=== PATIENT | female | born 1945 | race Caucasian/White ===

== ENCOUNTER 2016-09-26 17:04 | Emergency (ER) | payer MEDICARE ==
[~2016-09-26 17:04] MED LIST: BIAXIN500 MG PO; CALAN SR240 MG PO; CIPRO500 MG PO; CIPROFLOXACIN500 MG PO; DICYCLOMINE HCL10 MG PO; DUONEB 3 MG/3 ML3 M1 NEB; FERREX 150150 MG PO; LASIX20 MG PO; LESCOL XL80 MG PO; LIPITOR80 MG PO; LISINOPRIL10 MG PO; PLAVIX75 MG PO; POTASSIUM20 MEQ PO; PREDNISONE20 MG PO; PROTONIX TR40 MG PO; PULMICORT RESP0.5 MG NEB; SOLU-MEDROL40 MG PO; SYNTHROID,LEVO25 MCG PO; XANAX0.5 MG PO
[2016-09-26] MEDS ORDERED: LESCOL PO (17:17)
[2016-09-26 17:30] LABS: BASO # 0.1 10*3/uL (0.0-0.1); BASO % 0.8 % (0.0-1.0); EOS # 0.1 10*3/uL (0.0-0.4); EOS % 1.1 % (1.0-4.0); HEMATOCRIT 42.4 % (37.0-47.0); HEMOGLOBIN 14.4 g/dl (12.0-16.0); LYMPH % 25.5 % (27.0-41.0); MEAN CORPUSCULAR HGB 30.6 pg (27.0-31.0); MONO # 0.6 10*3/uL (0.1-1.0); NEUT # 5.1 10*3/uL (2.3-7.9); NEUT % 65.2 % (47.0-73.0); PLATELET COUNT AUTOMATED 236 10*3/uL (130-400); RED BLOOD COUNT 4.71 10*6/uL (4.10-5.10); RED CELL DISTRI WIDTH 13.1 % (0-14.5); WHITE BLOOD COUNT 7.8 10*3/uL (4.8-10.8)
[2016-09-26 17:45] LABS: ALBUMIN 3.5 gm/dl (3.1-4.5); ALKALINE PHOSPHATASE 68 U/L (45-117); BILIRUBIN, TOTAL 0.4 mg/dl (0.2-1.0); BUN 14 mg/dl (7-24); CARBON DIOXIDE 27 mmol/L (21-32); CHLORIDE 107 mmol/L (98-107); EST GLOM FILT AFRICAN AMERICAN > 60 ml/min; GLUCOSE 84 mg/dL (65-99); POTASSIUM 4.5 mmol/L (3.5-5.1); SGOT/AST 11 IU/L (3-35); SGPT/ALT 17 U/L (12-78); SODIUM 144 mmol/L (136-145); TOTAL PROTEIN 6.5 gm/dL (6.4-8.2)
[2016-09-26 17:47] LABS: TROPONIN I < 0.015 ng/ml (<0.045)
[2016-09-26 18:30] LABS: BILIRUBIN NEGATIVE (NEGATIVE); BLOOD NEGATIVE (NEGATIVE); CLARITY SL CLOUDY (CLEAR); COLOR YELLOW (YELLOW); GLUCOSE NEGATIVE (NEGATIVE); KETONE NEGATIVE (NEGATIVE); LEUKO ESTERASE 1+ (NEGATIVE); NITRITE NEGATIVE (NEGATIVE); PH 5.5 (5.0-9.0); PROTEIN NEGATIVE (NEGATIVE); SPECIFIC GRAVITY 1.015 (1.005-1.030); UROBILINOGEN 0.2 E.U./dl (0.2-1.0)
[2016-09-26 18:48] LABS: RBC 0-2 rbc/hpf (0-2)
[2016-09-26 18:49] LABS: BACTERIA 2+; URINE REFLEX COMMENT YES (NO)
== END 2016-09-26 19:11 | disposition home or self-care (01) ==
LOC: ED 17:04
PROVIDERS: Student in an Organized Health Care Education/Training Program
DX: N39.0 Urinary tract infection, site not specified (principal); M54.5 Low back pain; Z88.0 Allergy status to penicillin

== ENCOUNTER → 2016-10-06 | Outpatient (CLI) | payer MEDICARE ==
[~2016-10-06] MED LIST changes: +LESCOL PO
== END | disposition home or self-care (01) ==
LOC: LAB 11:38
DX: R19.7 Diarrhea, unspecified (principal)

== ENCOUNTER 2016-10-12 16:59 | Emergency (ER) | payer MEDICARE ==
[~2016-10-12] VITALS: Ht 172.7 cm; Wt 85.7 kg
[2016-10-12] MEDS ORDERED: OMEPRAZOLE D/R20 MG PO (17:13)
[2016-10-12] MEDS ORDERED: POTASSIUM CHLO20 ME4 PO (17:14)
[2016-10-12] MEDS ORDERED: ATORVASTATIN CA80 M1 PO (17:14)
[2016-10-12 20:16] LABS: BASO # 0.1 10*3/uL (0.0-0.1); EOS # 0.2 10*3/uL (0.0-0.4); EOS % 1.9 % (1.0-4.0); HEMATOCRIT 44.2 % (37.0-47.0); HEMOGLOBIN 14.7 g/dl (12.0-16.0); LYMPH # 2.9 10*3/uL (1.3-4.4); LYMPH % 34.2 % (27.0-41.0); MEAN CELL VOLUME 92.5 fl (81.0-99.0); MEAN CORPUSCULAR HGB 30.8 pg (27.0-31.0); MEAN CORPUSCULAR HGB CONC 33.3 g/dl (33.0-37.0); MEAN PLATELET VOLUME 11.4 fl (9.6-12.3); MONO # 0.6 10*3/uL (0.1-1.0); MONO % 7.5 % (3.0-9.0); NEUT # 4.6 10*3/uL (2.3-7.9); NEUT % 55.2 % (47.0-73.0); PLATELET COUNT AUTOMATED 233 10*3/uL (130-400); RED BLOOD COUNT 4.78 10*6/uL (4.10-5.10); RED CELL DISTRI WIDTH 13.4 % (0-14.5); WHITE BLOOD COUNT 8.4 10*3/uL (4.8-10.8)
[2016-10-12 20:21] LABS: BILIRUBIN NEGATIVE (NEGATIVE); BLOOD NEGATIVE (NEGATIVE); CLARITY CLEAR (CLEAR); COLOR YELLOW (YELLOW); GLUCOSE NEGATIVE (NEGATIVE); KETONE NEGATIVE (NEGATIVE); LEUKO ESTERASE 1+ (NEGATIVE); NITRITE NEGATIVE (NEGATIVE); PH 5.5 (5.0-9.0); PROTEIN NEGATIVE (NEGATIVE); SPECIFIC GRAVITY <= 1.005 (1.005-1.030); UROBILINOGEN 0.2 E.U./dl (0.2-1.0)
[2016-10-12 20:27] LABS: BACTERIA TRACE; URINE REFLEX COMMENT YES (NO)
[2016-10-12 20:32] LABS: ALBUMIN 3.6 gm/dl (3.1-4.5); ALKALINE PHOSPHATASE 70 U/L (45-117); BILIRUBIN, TOTAL 0.5 mg/dl (0.2-1.0); BUN 15 mg/dl (7-24); CARBON DIOXIDE 30 mmol/L (21-32); CHLORIDE 104 mmol/L (98-107); EST GLOM FILT AFRICAN AMERICAN > 60 ml/min; GLUCOSE 84 mg/dL (65-99); POTASSIUM 4.5 mmol/L (3.5-5.1); SGOT/AST 21 IU/L (3-35); SGPT/ALT 30 U/L (12-78); SODIUM 141 mmol/L (136-145); TOTAL PROTEIN 6.6 gm/dL (6.4-8.2)
== END 2016-10-12 21:15 | disposition home or self-care (01) ==
LOC: ED 16:59
PROVIDERS: Physician Assistant
DX: K59.00 Constipation, unspecified (principal); R10.30 Lower abdominal pain, unspecified; F17.200 Nicotine dependence, unspecified, uncomplicated; Z88.0 Allergy status to penicillin; Z79.899 Other long term (current) drug therapy; Z90.49 Acquired absence of other specified parts of digestive tract

== ENCOUNTER 2016-10-14 08:35 | Inpatient (IN) | payer MEDICARE ==
[~2016-10-14] VITALS: Ht 172.7 cm; Wt 88.2 kg
[~2016-10-14 08:35] MED LIST changes: +ATORVASTATIN CA80 M1 PO; +OMEPRAZOLE D/R20 MG PO; +POTASSIUM CHLO20 ME4 PO
[2016-10-14 11:30] VITALS: BP 126/60
[2016-10-14 16:00] VITALS: BP 105/55
[2016-10-14 17:56] VITALS: BP 153/53
[2016-10-14 18:16] LABS: BASO # 0.1 10*3/uL (0.0-0.1); BASO % 0.8 % (0.0-1.0); EOS # 0.1 10*3/uL (0.0-0.4); EOS % 1.1 % (1.0-4.0); HEMATOCRIT 45.4 % (37.0-47.0); LYMPH # 2.5 10*3/uL (1.3-4.4); LYMPH % 28.4 % (27.0-41.0); MEAN CELL VOLUME 91.9 fl (81.0-99.0); MEAN CORPUSCULAR HGB 30.4 pg (27.0-31.0); MEAN PLATELET VOLUME 10.9 fl (9.6-12.3); MONO # 0.8 10*3/uL (0.1-1.0); MONO % 8.5 % (3.0-9.0); NEUT # 5.4 10*3/uL (2.3-7.9); NEUT % 60.7 % (47.0-73.0); PLATELET COUNT AUTOMATED 243 10*3/uL (130-400); RED BLOOD COUNT 4.94 10*6/uL (4.10-5.10); RED CELL DISTRI WIDTH 13.4 % (0-14.5); WHITE BLOOD COUNT 8.8 10*3/uL (4.8-10.8)
[2016-10-14 18:26] LABS: INTERNATIONAL NORM RATIO 1.1 (2.0-3.5); PROTHROMBIN TIME 12.1 SECONDS (9.0-12.4)
[2016-10-14 18:53] LABS: ALBUMIN 3.8 gm/dl (3.1-4.5); ALKALINE PHOSPHATASE 70 U/L (45-117); BILIRUBIN, TOTAL 0.5 mg/dl (0.2-1.0); BUN 10 mg/dl (7-24); CARBON DIOXIDE 30 mmol/L (21-32); CHLORIDE 104 mmol/L (98-107); EST GLOM FILT AFRICAN AMERICAN > 60 ml/min; GLUCOSE 105 mg/dL (65-99); POTASSIUM 4.7 mmol/L (3.5-5.1); SGOT/AST 28 IU/L (3-35); SGPT/ALT 34 U/L (12-78); SODIUM 142 mmol/L (136-145); TOTAL PROTEIN 6.6 gm/dL (6.4-8.2)
[2016-10-14 18:54] LABS: TROPONIN I < 0.015 ng/ml (<0.045)
[2016-10-14 19:00] VITALS: BP 140/73
== END 2016-10-14 19:37 | DRG 66 ==
LOC: 4E 08:35 → ICCU 17:53
PROVIDERS: Hospitalist; Student in an Organized Health Care Education/Training Program
DX: I63.9 Cerebral infarction, unspecified (principal)

== ENCOUNTER 2016-11-12 07:14 | Inpatient (IN) | payer MEDICARE ==
[~2016-11-12] VITALS: Ht 173.9 cm; Wt 98.4 kg
[2016-11-12] VITALS (10 sets, daily range): BP systolic 94–142; BP diastolic 50–81
--- NOTE | ~2016-11-12 | PR ---
[place], [place] PROGRESS NOTE NAME: BIGG RAMIRES [facility] #: [id number] UNIT #: [id number] ROOM: 408 DOCTOR: ALISON NORMAN MD BIRTHDATE: [birth year] DOS: 11/18/2016 SUBJECTIVE: The patient was seen at her bedside today, 11/18/2016, for followup of her atrial fibrillation with rapid ventricular response and recent stroke. As I mentioned in my note from 11/17/2016, I did review her records from [facility]. A ROBERTO done at that facility showed a right atrial mass attached to the interatrial septum. It was not clear whether this represented a thrombus or myxoma. They were not able to demonstrate a shunt from the right atrium to the left atrium, so it appeared unlikely that the mass had anything to do with her recent stroke. Decision was made to anticoagulate her and see if the mass did not dissolve over time. If it remained intact, then plans would need to be made to remove it. The patient is currently awaiting transport to a rehabilitation facility to build her strength back up. PHYSICAL EXAMINATION: VITAL SIGNS: Today, her pulse is 60 and irregularly irregular, blood pressure is 106/70. She is afebrile and weighs 98.4 kilograms with a body mass index of 32.5. NECK: Supple. She has no jugular distention. Carotids are full. She has no bruits. She has no neck or supraclavicular masses. LUNGS: Respirations are unlabored. Her chest is clear. HEART: Has an irregularly irregular rhythm without murmurs or gallops. ABDOMEN: Benign. EXTREMITIES: Showed no edema. PLAN: She does seem to be stable from a cardiac standpoint. Her heart rate appears to be controlled on her current medications. She will continue amiodarone, metoprolol and digoxin for rate control. Her digoxin level this morning was 0.65. She will continue warfarin anticoagulation and her INR this morning was 1.8. This will be monitored and managed by Dr. David Curiel. I did give the patient my business card and told her that one way or another, the mass in her heart would need to be followed. She can either seek followup at the [facility] with or seek followup with us. As noted, she will require another ROBERTO at some point in the next few months to determine if the mass is shrinking or growing. I thank Dr. Curiel for asking our advice regarding her care. [place], [place] PROGRESS NOTE NAME: BIGG RAMIRES UNIT #: [id number] ROOM: [facility] DOCTOR: ALISON NORMAN MD BIRTHDATE: [birth year] ALISON NORMAN MD CM:PNTRANS [phone] ALISON NORMAN MD 11/18/162145 interface
--- NOTE | ~2016-11-12 | PR ---
[place], [place] PROGRESS NOTE NAME: BIGG RAMIRES UNIT #: [id number] ROOM: [facility] DOCTOR: TARA OJEDA MD BIRTHDATE: [birth year] DOS: 11/14/2016 REASON FOR VISIT: Congestive heart failure and atrial fibrillation. SUBJECTIVE: The patient is feeling better, sitting in the chair next to the bed. Family is at bedside. Denies any chest pain, palpitations. No dizziness. No orthopnea. REVIEW OF SYSTEMS: Review of the 8 systems negative except as mentioned above. RHYTHM STRIPS: The patient is in atrial fibrillation with rates in the 100s. PHYSICAL EXAMINATION: VITAL SIGNS: Blood pressure 115/62, pulse 96, respiratory rate 20. GENERAL: Alert, comfortable, in no acute distress. HEENT: Pupils are round and equal. No jaundice. Tongue was moist and pharynx was clear. NECK: Supple, no distended neck veins, no carotid bruit. CHEST: Symmetrical, nontender. LUNGS: Few scattered rhonchi, good air entry bilaterally. HEART: Irregularly irregular. Grade I/ systolic murmur. EXTREMITIES: Showed 1+ edema. Distal pulses are palpable. SKIN: Warm and dry. No cyanosis, no clubbing. RECTAL: Deferred. GENITOURINARY: Deferred. MEDICATIONS AND ALLERGIES: Reviewed. IMPRESSION: 1. Acute systolic heart failure, improving. 2. Atrial fibrillation with rapid ventricular rate, currently rates stable, we will wean out for IV Cardizem and discontinue. Switch her to p.o. amiodarone 400 mg twice a day for 1 week, then decrease to 200 mg twice a day. 3. Continue heart rate and blood pressure. 4. She can be transferred to telemetry floor and hopefully home in 24-48 hours. 5. Continue her Coumadin and keep INR 2-3. 6. Left ventricular dysfunction, EF 40%. 7. Coronary artery disease status post PTCA. 8. Pericardial effusion with no tamponade physiology. [place], [place] PROGRESS NOTE NAME: BIGG RAMIRES UNIT #: [id number] ROOM: [facility] DOCTOR: TARA OJEDA MD BIRTHDATE: [birth year] TARA OJEDA MD CM:PNTRANS [phone] TARA OJEDA MD 11/14/16 1544 interface
--- NOTE | ~2016-11-12 | PR ---
[place], [place] PROGRESS NOTE NAME: BIGG RAMIRES [facility] #: [id number] UNIT #: [id number] ROOM: [facility] DOCTOR: FANTA SHAW MD BIRTHDATE: [birth year] DOS: 11/15/2016 SUBJECTIVE: Patient is tachycardia again after her IV amiodarone and Cardizem were stopped and she was converted to oral. The patient is already on digoxin. Case discussed with cardiology today. OBJECTIVE: VITAL SIGNS: Blood pressure 117/52, heart rate 122 beats per minute, breathing 18 times per minute, temperature 98.2 degrees Fahrenheit. GENERAL APPEARANCE: The patient is alert and oriented x 3, in no visible distress. Generalized weakness. HEENT AND NECK: Exam within normal limits. CARDIOVASCULAR SYSTEM: Heart rate was irregularly irregular in rate and rhythm and tachycardic. LUNGS: Clear to auscultation. ABDOMEN: Soft, nontender. No obvious organomegaly. Bowel sounds are present. EXTREMITIES: Without significant cyanosis or edema. IMPRESSION: 1. Chronic atrial fibrillation with rapid ventricular response. The patient is still remaining tachycardic despite being treated with amiodarone, diltiazem, metoprolol and was given digoxin. Case discussed with cardiology today. We will give her more digoxin and we will continue to monitor her closely in ICU. 2. Chronic atrial fibrillation. The patient adequately anticoagulated with Coumadin and INR was 2 today. 3. The patient has a right adnexal mass with previous history of malignancy to be worked up by Dr. Ramey. the oncologist. Patient's CA-125 levels are elevated to 66.4. 4. Benign essential hypertension. Blood pressure is being monitored and controlled. 5. Gastroesophageal reflux disease and esophagitis, asymptomatic with Protonix, which is being continued. FANTA SHAW MD CM:PNYOJANA 13 [phone] FANTA SHAW MD 11/15/161847 interface
--- NOTE | ~2016-11-12 | PR ---
[place], [place] PROGRESS NOTE NAME: BIGG RAMIRES [facility] #: [id number] UNIT #: [id number] ROOM: 408 DOCTOR: FANTA SHAW MD BIRTHDATE: [birth year] DOS: 11/17/2016 SUBJECTIVE:. The patient is feeling much better, but still unable to walk by herself and she is not independent enough. OBJECTIVE: VITAL SIGNS: Blood pressure 136/56, heart rate 100 beats per minute, breathing 20 times per minute, temperature 98 degrees Fahrenheit. GENERAL APPEARANCE: The patient is alert and oriented x 3, in no visible distress. Generalized weakness. HEENT AND NECK: Exam within normal limits. CARDIOVASCULAR SYSTEM: Heart rate is irregularly irregular. LUNGS: Clear to auscultation. ABDOMEN: Soft, nontender. No obvious organomegaly. Bowel sounds are present. EXTREMITIES: Without significant cyanosis or edema. IMPRESSION: 1. The patient with chronic atrial fibrillation with rapid ventricular response, heart rate improved with treatment now with digoxin, amiodarone and diltiazem. The patient is also on metoprolol. The patient is anticoagulated with Coumadin. INR is being monitored. 2. Benign essential hypertension with controlled blood pressures. 3. Generalized anxiety disorder, treated and controlled with p.r.n. Xanax. 4. Gastroesophageal reflux disease and esophagitis, asymptomatic with Protonix. 5. The patient has a right adnexal mass to be followed by Dr. Kruse as an outpatient. He was consulted. 6. Significant disability. The patient is not safe to go home and she is agreeing to go to senior care facility for rehabilitation. FANTA SHAW MD CM:PNTRANS [id number] FANTA SHAW MD 11/17/16 1244 interface
--- NOTE | ~2016-11-12 | PR ---
[place], [place] PROGRESS NOTE NAME: BIGG RAMIRES [facility] #: [id number] UNIT #: [id number] ROOM: 408 DOCTOR: ALISON NORMAN MD BIRTHDATE: [birth year] DOS: SUBJECTIVE: The patient was seen at her bedside today for followup of her atrial fibrillation and recent stroke. She was recently documented as having paroxysmal atrial fibrillation. In addition, she was being evaluated as an outpatient in October 2016 for abdominal pain and possible GI bleeding. While she was being prepped for colonoscopy, she developed stroke-like symptoms. She presented to the Emergency Room and was transferred to [facility] where she received TPA. I did receive and reviewed their records. During that hospitalization, she also did undergo transesophageal echocardiography. They noted the presence of a large mobile heterogenous mass measuring 2 cm x 1.2 cm seen attached to the right atrial septum. It was felt to most likely be a myxoma or possibly a thrombus. No shunting was noted at the atrial level and therefore the mass was felt to be not directly associated with the patient's stroke. She had no atrial appendage thrombus or left atrial source of emboli. They recommended a cardiac MRI for further evaluation; however, the patient refused because of claustrophobia. Therefore, recommendations were made that she be anticoagulated for several weeks and that the ROBERTO be subsequently repeated. If the mass persist, it will probably have to be resected. The patient states that she is feeling better in the hospital. Her heart rate is still fast, but much better controlled and her rhythm is still irregular. PHYSICAL EXAMINATION: VITAL SIGNS: Today, her pulse is between 90 and 100 and irregularly irregular, blood pressure is 140/66. She is afebrile. NECK: Supple. She has no jugular distention. Carotids are full. LUNGS: Respirations are unlabored. Chest is clear to auscultation and percussion. HEART: Has an irregularly irregular rhythm without murmurs or gallops. ABDOMEN: Benign. EXTREMITIES: Showed trace edema bilaterally. LABORATORY DATA: INR today is 1.8. Digoxin level yesterday was 0.85. IMPRESSION: 1. Atrial fibrillation with rapid ventricular response. 2. History of paroxysmal atrial fibrillation. 3. Presentation on 10/14/2016 with symptoms of acute stroke. The patient transferred to [facility] where she received TPA. 4. ROBERTO done on 10/20/2016 showed large mobile heterogenous mass in the right atrium attached to the interatrial septum. 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 No shunting was noted at the atrial level and therefore it was felt to not be directly responsible for the patient's stroke. No left-sided source of embolism was seen. 5. Intractable nausea and vomiting on admission, which has resolved. 6. Pericardial effusion without obvious hemodynamic consequences. PLAN: Plans are being made for the patient to be sent to the [place], [place] PROGRESS NOTE NAME: BIGG RAMIRES UNIT #: [id number] ROOM: 408 DOCTOR: ALISON NORMAN MD BIRTHDATE: [birth year] [place] for rehabilitation. Her INR will continue to be followed by Dr. David Curiel. I will repeat her digoxin level in the morning to make sure that the level is not rising. We will need to decrease her amiodarone to 200 mg twice a day and eventually decrease it to once a day. The patient will require a followup transesophageal echocardiogram at some point in the next month or so. We will discuss with the patient whether she wants us to do it locally or have her follow up with Dr. Nunez at [facility] for this procedure. I thank Dr. Curiel for asking our advice regarding her care. ALISON NORMAN MD CM:PNTRANS [phone] ALISON NORMAN MD 11/17/16 2338 interface
--- NOTE | ~2016-11-12 | CON ---
[place], [place] REPORT OF CONSULTATION NAME: BIGG RAMIRES [facility] #: [id number] UNIT #: [id number] ROOM: [facility] DOCTOR: TANIKA SOLORZANO MD BIRTHDATE: [birth year] DOS: 11/13/2016 HISTORY OF PRESENT ILLNESS: The patient is a pleasant 71-year-old woman who was recently discharged from [facility]. Presented to the Emergency Department, at [facility] because of feeling dizzy and some pressure in the chest. In the ER, she was found to have atrial fibrillation with rapid ventricular response. Subsequently, she was admitted. Further she underwent a CT scan of the abdomen, which showed a right adnexal mass, anasarca and subsequently consulted for further evaluation and management. PAST MEDICAL HISTORY: 1. She says that at age 22 she had uterine cancer. She underwent complete total hysterectomy. 2. Ten years later she had partial nephrectomy done because of the tumor, done at [facility]. 3. Few years later she had a mass in the left-sided backside, tumor was removed and was malignant, as per the patient. 4. History of chronic atrial fibrillation, anticoagulated with Coumadin. 5. Hypothyroidism. 6. Hyperlipidemia. 7. History of chronic obstructive pulmonary disease. 8. Benign essential hypertension. 9. History of moderate pericardial effusion without tamponade in the past. 10. History of gastritis. REVIEW OF SYSTEMS: CONSTITUTIONAL: No chills. No fatigue. No fever. No loss of appetite. No night sweats. No weakness. No weight loss. HEENT: No trouble swallowing. No loss of smell. No loss of hearing. No double vision. No pain. No discharge. ENT AND RESPIRATORY: No wheeze. No sore throat. No change in voice. No hearing loss. No nose bleed. No cough. No trouble breathing through nose. No shortness of breath. No coughing up blood. No epistaxis. CARDIOVASCULAR: No chest pain. No dizziness. No irregular heartbeat. No leg edema. No pain in legs while walking. No palpitations. No shortness of breath. DERMATOLOGIC: No acne. No hives. No laceration. No mole. No rash. ENDOCRINE: No cold intolerance. No diabetes. No fatigue. No hot flashes. No polydipsia. No polyuria. No urinating frequently. No weight loss. HEMATOLOGIC AND LYMPH: No fatigue. No easy bruising. GASTROENTEROLOGIC: No change in bowel habits. No indigestion. No frequent bloating. No vomiting blood. No abdominal cramping. No nausea. No heartburn. No vomiting. No abdominal pain. No dysphagia. No diarrhea. No constipation. No blood in stool. FEMALE REPRODUCTIVE: No vaginal itching. No difficulty urinating. No heavy periods. No dyspareunia. No sexually active. No dysmenorrhea. No pelvic pain. No breast pain. No nipple discharge. No abnormal vaginal discharge. No hot flashes. MUSCULOSKELETAL: No back pain. No muscle pain or weakness. No neck pain. No tingling/numbness. No swelling/bruising. No osteoporosis treatment. [place], [place] REPORT OF CONSULTATION NAME: BIGG RAMIRES UNIT #: [id number] ROOM: [facility] DOCTOR: TANIKA SOLORZANO MD BIRTHDATE: [birth year] OPHTHALMOLOGIC: No double vision. No diminished vision. No loss of vision. UROLOGIC: No dysuria. No frequent nighttime urination. No irregular periods. No pain with urination. No difficulty urinating. No blood in urine. No frequent urination. No urinary incontinence. NEUROLOGIC: No loss of sensation in specific body area. No vertigo. No burning pain in feet. No trouble with balance. No trouble with coordination. No loss of consciousness. No loss of feeling/power. No confusion. No headache. No tingling/numbness. PSYCHOLOGIC: No tinnitus. No headaches. No shortness of breath. No weight decrease. No nausea. No vomiting. No abdominal discomfort. No constipation. No diarrhea. No depression. No anxiety. PHYSICAL EXAMINATION: GENERAL: General appearance: She is a pleasant woman in no apparent distress. VITAL SIGNS: She is afebrile. HEENT: Oral mucosa appears intact. The external ears are normal in appearance. Nares are patent without lesions, exudates, erythema, or inflammation. Tongue is symmetrical. Uvula is midline. NECK AND THYROID: Neck supple without palpable masses. Trachea is midline. No thyromegaly. No carotid bruit or JVD. BREASTS: Normal. Nipples unremarkable. No drainage. No lumps felt on either side. HEART: S1, S2, irregularly irregular. LUNGS: Decreased breath sounds. ABDOMEN: No costovertebral angle tenderness. Soft. No organomegaly or masses. Nontender. No hernias present. Liver and spleen are not palpable. LYMPHATIC: No adenopathy noted in the cervical, supraclavicular, axillary, or inguinal regions. NEUROLOGIC: Nonfocal. Oriented to person, place, and time. MENTAL STATUS: Appropriate for mood and affect. PERIPHERAL PULSES: No varicosities. Femoral and pedal pulses are palpable. EXTREMITIES: 1 to 2+ leg edema. RADIOLOGY: 1. CT of the abdomen and pelvis done on 11/12/2016, showed interval evolution of third space anasarca with airspace disease in the lower lungs suspicious for pneumonia, consider a component of fluid overload, congestive heart failure. 2. 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 3. Complex cystic focus in the right adnexa must be considered to be neoplastic unless proven otherwise. CT of the chest pain was negative for any masses. LABORATORY DATA: White count of 10.7, hemoglobin of 12.6, hematocrit 39.2, platelet count 283,000. Chemistries: Glucose 103, BUN of 13, EGFR is 50. Sodium 140, potassium 4.4. Total bilirubin 1.3, SGOT 40, SGPT 163, alkaline phosphatase 92, total protein 5.7, calcium total 8.2. ASSESSMENT: 1. Right adnexal mass. 2. Atrial fibrillation. [place], [place] REPORT OF CONSULTATION NAME: BIGG RAMIRES UNIT #: [id number] ROOM: [facility] DOCTOR: TANIKA SOLORZANO MD BIRTHDATE: [birth year] 3. Anasarca. 4. History of uterine cancer with total abdominal hysterectomy at age 22, as per the patient. 5. Elevated liver enzymes. 6. Right lower quadrant pain. PLAN: I had detailed discussion with the patient that the right adnexal mass needs to be further evaluated. She was very adamant before to get anything done, but later agreed further workup to be done. Subsequently, I am going to get ultrasound of the right adnexa. Depending upon that, further intervention. She has been having right lower quadrant pain for quite some time. Thank you for consulting and letting me participate in the care of this interesting patient. TANIKA SOLORZANO MD CM:CONSTR:REPORT OF CONSULTATION 1321 11/13/16 1638 interface
--- NOTE | ~2016-11-12 | PR ---
[place], [place] PROGRESS NOTE NAME: BIGG RAMIRES [facility] #: [id number] UNIT #: [id number] ROOM: [facility] DOCTOR: TANIKA SOLORZANO MD BIRTHDATE: [birth year] DOS: 11/15/2016 SUBJECTIVE: Now, she is doing better. REVIEW OF SYSTEMS: HEENT: No trouble swallowing. No double vision. No loss of vision. No pain. ENT AND RESPIRATORY: No wheeze. No change in voice. No cough. No shortness of breath. No coughing up blood. No epistaxis. CARDIOLOGIC: No chest pain. No dizziness. No irregular heartbeat. No leg edema. No palpitations. No shortness of breath. HEMATOLOGIC AND LYMPH: No past transfusion. No fatigue. No loss of appetite. No easy bruising. GASTROENEROLOGIC: No change in bowel habits. No vomiting blood. No abdominal cramping. No nausea. No vomiting. No diarrhea. No constipation. No blood in stool. FEMALE REPRODUCTIVE: No dyspareunia. No pelvic pain. MUSCULOSKELETAL: No back pain. No muscle pain or weakness. No tingling/numbness. UROLOGIC: No pain with urination. No difficulty urinating. No frequent urination. NEUROLOGIC: No burning pain in feet. No trouble with coordination. No loss of consciousness. No headache. No tingling/numbness. No memory loss. PHYSICAL EXAMINATION: GENERAL: Pleasant woman in no apparent distress. VITAL SIGNS: Stable. Afebrile. HEENT: Normocephalic, atraumatic NECK AND THYROID: Supple. No JVD, thyromegaly, or lymphadenopathy. HEART: Normal S1, S2. Regular rate and rhythm. LUNGS: Clear to auscultation and percussion. ABDOMEN: Soft. Nontender, nondistended. Bowel sounds present. EXTREMITIES: Normal ROM. No clubbing. No edema. LABORATORY DATA: White count 10.7, hemoglobin 12.6, hematocrit 39.2 and platelet count of 38. ASSESSMENT: 1. Right adnexal mass. 2. Chronic atrial fibrillation. 3. Right lower quadrant pain. 4. Bilateral pleural effusion. 5. Pericardial effusion with no tamponade. PLAN: She will be getting an ultrasound of the right adnexal area. Depending upon that, further intervention. Discussed with the patient in detail. [place], [place] PROGRESS NOTE NAME: BIGG RAMIRES UNIT #: [id number] ROOM: [facility] DOCTOR: RASHAD SELF,TANIKA BIRTHDATE: [birth year] TANIKA SOLORZANO MD CM:PNYOJANA 2 TANIKA SOLORZANO MD 11/15/16912 interface
--- NOTE | ~2016-11-12 | PR ---
[place], [place] PROGRESS NOTE NAME: BIGG RAMIRES [facility] #: [id number] UNIT #: [id number] ROOM: [facility] DOCTOR: ALISON NORMAN MD BIRTHDATE: [birth year] DOS: 11/16/2016 SUBJECTIVE: The patient was seen at her bedside today, 11/16/2016 for followup of her atrial fibrillation with rapid ventricular response. She is a 71-year-old woman who recently presented with a right hemispheric stroke. She was sent to [facility] where she recovered from the event and has no obvious residual damage. She does have a long history of atrial fibrillation and is anticoagulated with warfarin for stroke prophylaxis. Currently, she is on amiodarone, diltiazem and metoprolol for heart rate control. Overnight, her rate dipped into the low 60s and high 50s. This morning, the rate is between 90 and 120. The patient states that she is about the same as yesterday. She does appear to be quite depressed. We have not yet received any records from her recent hospitalization at the [facility]. OBJECTIVE: VITAL SIGNS: At present, her heart rate is about 90 and irregularly irregular, blood pressure is 115/62. She is afebrile. She weighs 98.4 kilograms with a body mass index of 32.5. NECK: Supple. She has no jugular distention. CHEST: Has decreased breath sounds bilaterally. HEART: Has an irregularly irregular rhythm without murmurs or gallops. ABDOMEN: Soft and normally active. EXTREMITIES: Showed trace edema at the ankles. She has considerable swelling at her forearms from IV infiltrations, chemically induced phlebitis, etc. LABORATORY DATA: Today show hemoglobin of 10.6, white count of 7200, a platelet count 197,000 and a digoxin level of 0.85. Sodium is 143, potassium 3.3, BUN 8 and creatinine 0.91. INR is 1.8. IMPRESSION: 1. Atrial fibrillation with rapid ventricular response. 2. History of paroxysmal atrial fibrillation. 3. Recent hospitalization at [facility] with right hemispheric stroke. The patient has had a complete recovery from this event. 4. Intractable nausea and vomiting on admission, which appears to have improved. 5. Pericardial effusion without obvious hemodynamic consequences. PLAN: We will add a small dose of digoxin to her regimen and continue to monitor her rate. We will continue to await the records from [facility]. I thank Dr. Neto Curiel for asking our advice regarding the patient's care. [place], [place] PROGRESS NOTE NAME: BIGG RAMIRES UNIT #: [id number] ROOM: [facility] DOCTOR: ESTER SELF,ALISON BIRTHDATE: [birth year] ALISON NORMAN MD CM:PNTRANS [id number] ALISON NORMAN MD 11/16/16 1453 interface
--- NOTE | ~2016-11-12 | DS ---
[place], [place] DISCHARGE SUMMARY NAME: BIGG RAMIRES [facility] #: [id number] UNIT #: [id number] ROOM: 408 DOCTOR: FANTA SHAW MD BIRTHDATE: [birth year] DOS: 11/18/2016 DISCHARGE DIAGNOSES: 1. Chronic atrial fibrillation with rapid ventricular response. 2. The patient anticoagulated with Coumadin. 3. The patient with right adnexal mass, to be followed by Dr. Kruse and Dr. Ramey as an outpatient. Please arrange for appointments to see them. 4. Anemia of chronic disease. 5. Generalized anxiety disorder. 6. Gastroesophageal reflux disease and esophagitis. 7. Adult failure to thrive. 8. Benign essential hypertension. 9. History of hypothyroidism. 10. Mixed hyperlipidemia. 11. Chronic obstructive pulmonary disease. 12. Moderate pericardial effusion without tamponade in the past. 13. Gastritis on EGD and diverticulosis on colonoscopy in the past. HOSPITAL COURSE: The patient presented to the Emergency Department at [facility] with dizziness and pressure in her chest. The patient was found to be tachycardic with chronic history of atrial fibrillation. The patient was admitted to the CCU on IV Cardizem. The patient's heart rate was difficult to control and she was treated with calcium channel blockers, beta blockers, finally digoxin and amiodarone. Amiodarone and diltiazem were given intravenously and finally patient's heart rates improved. The patient was converted to oral and moved to [facility] yesterday and now that her heart rates are better controlled, she will be discharged to [facility] for rehab because she is quite weak and cannot ambulate independently. The patient has a left wrist area of cellulitis and swelling, which is being treated with antibiotics. Benign essential hypertension with controlled blood pressure with treatment. Chronic atrial fibrillation. The patient anticoagulated with Coumadin. Repeat protime in 1 week and then every month. Generalized anxiety disorder, treated and controlled with p.r.n. Xanax. Hypothyroidism, treated with levothyroxine. GERD and esophagitis ____ with Protonix. Congestive heart failure, which is secondary to tachycardia, improved with treatment with Bumex. LABORATORY DATA: Ferritin level was normal. INR at 1.8. Normal serum electrolytes. Repeat basic metabolic profile after admission to the [facility], consult physical therapy. [place], [place] DISCHARGE SUMMARY NAME: BIGG RAMIRES UNIT #: [id number] ROOM: 408 DOCTOR: COLIN SELF,FANTA Vergara BIRTHDATE: [birth year] DISCHARGE MANAGEMENT: 1. Digoxin 125 mcg every other day, check a digoxin level in 1 week. 2. Amiodarone 200 mg b.i.d. 3. Diltiazem CD 120 mg a day. 4. Tylenol 650 mg t.i.d. p.r.n. 5. Protonix 40 mg a daily. 6. Levothyroxine 25 mcg daily. 7. Metoprolol 100 mg b.i.d. 8. Coumadin 2.5 mg daily. 9. Check protime in 1 week. 10. Bactrim-DS b.i.d. for 1 week. 11. Apply moist heat to the cellulitis area ____. 12. Xanax 0.5 mg t.i.d. p.r.n. for anxiety. FANTA SHAW MD CM:CLEO [id number] FANTA SHAW MD 11/18/162154 interface
--- NOTE | ~2016-11-12 | WRIGHTHP ---
[place], [place] PATIENT HISTORY AND PHYSICAL EXAM NAME: BIGG RAMIRES [facility] #: [id number] UNIT #: [id number] ROOM: [facility] DOCTOR: FANTA SHAW MD BIRTHDATE: [birth year] DOS: 11/12/2016 HISTORY OF PRESENT ILLNESS: The patient is a 71-year-old female with a past medical history of: 1. Recent left-sided CVA treated with thrombolysis at [facility] recently. 2. History of chronic atrial fibrillation, anticoagulated with Coumadin now. 3. History of hypothyroidism. 4. Hyperlipidemia. 5. History of chronic obstructive pulmonary disease. 6. Benign essential hypertension. 7. History of moderate pericardial effusion without tamponade in the past. 8. History of gastritis on EGD and diverticulosis on colonoscopy in the past. The patient presented to the Emergency Department at [facility] with feeling somewhat dizzy and some pressure in her chest. In the ER, the patient was found to be in atrial fibrillation with rapid ventricular response. The patient was started on IV Cardizem infusion and transferred to the CCU for further management. After admission, the patient is being managed by Dr. Lawler, gutter installer and heart rate is being monitored closely. No more complaints of any chest pains. No fainting episodes. No other GI or urinary symptoms. REVIEW OF SYSTEMS: LUNGS: Some increasing shortness of breath, no wheezing. GASTROINTESTINAL: No nausea, some recent episodes of vomiting and giving recent history of duodenal ulcer. CARDIOVASCULAR: Some complains of palpitations off and on and chest pains. FAMILY HISTORY: Noncontributory. SOCIAL HISTORY: The patient has a history of smoking cigarettes. Denies any alcohol or drug abuse. HOME MEDICATIONS: Xanax, levothyroxine, Coumadin, atenolol, propranolol and atorvastatin. ALLERGIES: ALLERGIES TO PENICILLIN. PHYSICAL EXAMINATION: GENERAL: Alert and oriented x 3, in no visible distress. VITAL SIGNS: Blood pressure 113/81, heart rate of 144 beats per minute, breathing 20 times per minute, temperature of 98.6 degrees Fahrenheit. HEENT AND NECK: Extraocular movements are intact. Sclerae are anicteric. Oral mucosa is moist and clean. No obvious facial weakness. Neck is supple without any lymphadenopathy. No thyromegaly. No JVD. No carotid arterial bruits. LUNGS: Clear to auscultation. No wheezing. No rhonchi. CARDIOVASCULAR SYSTEM: Heart rate is irregularly irregular in rate and rhythm. S1 and S2 audible and tachycardic and 1-2+ leg and pedal edema. ABDOMEN: Soft, nontender. No obvious organomegaly. Bowel sounds are present. [place], [place] PATIENT HISTORY AND PHYSICAL EXAM NAME: BIGG RAMIRES UNIT #: [id number] ROOM: [facility] DOCTOR: FANTA SHAW MD BIRTHDATE: [birth year] No obvious herniation. EXTREMITIES: Without significant cyanosis or edema. Warm to touch. CENTRAL NERVOUS SYSTEM: Alert and oriented x 3. Cranial nerves II-XII are intact. Speech is normal. The patient is able to move all extremities. Normal muscle strength. Deep tendon reflexes are equal on both sides. Planters were downgoing. IMPRESSION: 1. Atrial fibrillation with rapid ventricular response, heart rate going up to 180 beats per minute in the Emergency Department. It is improving with treatment with IV Cardizem. The patient also complained of some chest pains, so cardiac enzymes will be checked and Dr. Lawler, the gutter installer is monitoring her heart rates and adjusting treatment to better control her heart rate. 2. Acute systolic type congestive heart failure with 40% left ventricular ejection fraction, tachycardia and atrial fibrillation. I will treat her with IV Bumex. 3. The patient with a suspicious right adnexal mass to be evaluated by oncologist, Dr. Ramey for further studies. 4. Chronic atrial fibrillation, the patient anticoagulated with Coumadin. The patient's protime to be monitored. 5. Generalized weakness and failure to thrive. The patient is to work with physical therapy. FANTA SHAW MD CM:HISPHYS:PATIENT HISTORY AND PHYSICAL EXAMINATION 06 04 FANTA SHAW MD 11/12/161904 interface
--- NOTE | ~2016-11-12 | PR ---
[place], [place] PROGRESS NOTE NAME: BIGG RAMIRES [facility] #: [id number] UNIT #: [id number] ROOM: 408 DOCTOR: FANTA SHAW MD BIRTHDATE: [birth year] DOS: 11/16/2016 IMPRESSION: 1. The patient with chronic atrial fibrillation with rapid ventricular response, better controlled now with digoxin, amiodarone, diltiazem and metoprolol being used together. 2. Chronic atrial fibrillation. The patient anticoagulated with Coumadin. INR slightly subtherapeutic today. I will continue with Coumadin. 3. The patient with right adnexal mass for which Dr. Kruse, the cnc manager was consulted for further evaluation, but Dr. Kruse prefers to see the patient after discharge from the hospital and Dr. Ramey, the oncologist, is following her. 4. Gastroesophageal reflux disease and esophagitis, asymptomatic with Protonix. 5. Benign essential hypertension with controlled blood pressures. 6. Generalized weakness and adult failure to thrive. The patient working with physical therapy. 7. Generalized anxiety disorder, being treated with p.r.n. Xanax. FANTA SHAW MD CM:PNTRANS [id number] FANTA SHAW MD 11/17/16 0043 interface
--- NOTE | ~2016-11-12 | PR ---
[place], [place] PROGRESS NOTE NAME: BIGG RAMIRES [facility] #: [id number] UNIT #: [id number] ROOM: [facility] DOCTOR: TANIKA SOLORZANO MD BIRTHDATE: [birth year] DOS: 11/16/2016 SUBJECTIVE: The patient is doing better. Her IV amiodarone and Cardizem were stopped and converted to oral. She had ultrasound of the right abdominal quadrant done which showed a cyst in the right adnexa, though she is telling us that her ovaries were taken out. REVIEW OF SYSTEMS: HEENT: No trouble swallowing. No double vision. No loss of vision. No pain. ENT AND RESPIRATORY: No wheeze. No change in voice. No cough. No shortness of breath. No coughing up blood. No epistaxis. CARDIOLOGIC: No chest pain. No dizziness. No irregular heartbeat. No leg edema. No palpitations. No shortness of breath. HEMATOLOGIC AND LYMPH: No past transfusion. No fatigue. No loss of appetite. No easy bruising. GASTROENEROLOGIC: Has been having tenderness in the right lower quadrant. FEMALE REPRODUCTIVE: No dyspareunia. No pelvic pain. MUSCULOSKELETAL: No back pain. No muscle pain or weakness. No tingling/numbness. UROLOGIC: No pain with urination. No difficulty urinating. No frequent urination. NEUROLOGIC: No burning pain in feet. No trouble with coordination. No loss of consciousness. No headache. No tingling/numbness. No memory loss. PHYSICAL EXAMINATION: GENERAL: Pleasant woman in no apparent distress. VITAL SIGNS: Stable. She is afebrile. HEENT: Normocephalic, atraumatic. NECK AND THYROID: Supple. No JVD, thyromegaly, or lymphadenopathy. HEART: Normal S1, S2. Regular rate and rhythm. LUNGS: Clear to auscultation and percussion. ABDOMEN: Has been having tenderness in the right lower quadrant. EXTREMITIES: Normal ROM. No clubbing. No edema. LABORATORY DATA: White count of 7.1, hemoglobin 10.6, hematocrit 33.7 and platelet count 197. Glucose of 105, BUN 10, EGFR of more than 60. Sodium 142, potassium 4.7, chloride 104, bicarbonate 30, total protein 6.6. SGOT 28 and SGPT 34. RADIOLOGY: Ultrasound of the pelvis showed 4.2 x 5.3 x 4 cm cystic right adnexal lesion corresponding to the abnormality noted on the CT scan. ASSESSMENT: 1. Right adnexal lesion 4.2 x 5.3 x 4 cm. 2. Anemia of probably chronic disease. 3. Chronic atrial fibrillation. 4. Right lower quadrant pain. 5. Bilateral pleural effusion. PLAN: I discussed in detail about her ultrasound. She stated that her ovaries [place], [place] PROGRESS NOTE [id number] UNIT #: [id number] ROOM: [facility] DOCTOR: RASHAD SELF,TANIKA BIRTHDATE: [birth year] were taken out, which now she is not sure. Subsequently she is going to get evaluated by a biotechnician. Depending on that, further intervention. We will be watching her hemoglobin and hematocrit, which is slightly dropping. If it drops further, then intervention. Ample time was given for the patient to ask me questions. TANIKA SOLORZANO MD CM:PNTRANS [id number] TANIKA SOLORZANO MD 11/16/16 1426 interface
--- NOTE | ~2016-11-12 | PR ---
[place], [place] PROGRESS NOTE NAME: BIGG RAMIRES UNIT #: [id number] ROOM: [facility] DOCTOR: TARA OJEDA MD BIRTHDATE: [birth year] DOS: 11/13/2016 REASON FOR VISIT: Atrial fibrillation and pericardial effusion. SUBJECTIVE: The patient is feeling better. Denies any chest pain or palpitation. No dizziness. No orthopnea. REVIEW OF SYSTEMS: Review of the 8 systems negative except as mentioned above. PHYSICAL EXAMINATION: VITAL SIGNS: Blood pressure 133/67, pulse 115, respiration 18. GENERAL: Alert, comfortable, in no acute distress. HEENT: Pupils are round and equal. No jaundice. Tongue was moist and pharynx was clear. NECK: Supple. No distended neck veins. No carotid bruit. CHEST: Nontender. LUNGS: A few scattered rhonchi. HEART: Irregularly irregular. No S3. Grade 1/6 systolic murmur. ABDOMEN: Benign, nontender. Bowel sounds normal. EXTREMITIES: Showed trace edema. Distal pulses are palpable. SKIN: Warm and dry. No cyanosis. No clubbing. MEDICATIONS: Reviewed. RHYTHM STRIPS: The patient is in atrial fibrillation on the monitor. DIAGNOSES: 1. Atrial fibrillation with rapid ventricular rate. 2. Cardiomyopathy, ejection fraction 40%. 3. Moderate pericardial effusion with tamponade. 4. Coronary artery disease, status post stents in the past. 5. Acute on chronic systolic heart failure. RECOMMENDATIONS: 1. Continue current medications. 2. Continue IV amiodarone and Cardizem. 3. Give 1 dose of digoxin 0.25 mg IV. 4. The patient is tachycardic. I would recommend DC cardioversion on Tuesday; however, the patient does not wish cardioversion. 5. Continue to watch her heart rate and blood pressures. 6. Discussed with her family member who is at bedside. 7. Atrial fibrillation. Continue her Coumadin with INR goal 2-3. [place], [place] PROGRESS NOTE NAME: BIGG RAMIRES UNIT #: [id number] ROOM: [facility] DOCTOR: TARA OJEDA MD BIRTHDATE: [birth year] TARA OJEDA MD CM:GAEL [phone] TARA OJEDA MD 11/13/162212 interface
--- NOTE | ~2016-11-12 | PR ---
[place], [place] PROGRESS NOTE NAME: BIGG RAMIRES [facility] #: [id number] UNIT #: [id number] ROOM: [facility] DOCTOR: ALISON NORMAN MD BIRTHDATE: [birth year] DOS: 11/15/2016 SUBJECTIVE: The patient was seen today at her bedside in the intensive care unit and her situation was discussed with her primary physician, Dr. Neto Curiel. The patient feels tired today. Her intravenous rate slowing medications were stopped and she is now on metoprolol only. As the day has progressed, her rates have increased and currently her heart rate varies from 120-130 beats per minute again. She denies any chest pain or palpitations. She denies lightheadedness or syncope. PHYSICAL EXAMINATION: GENERAL: She is an elderly white female who is awake and alert. VITAL SIGNS: Pulse is 130 and irregular. Blood pressure is 111/59. She is afebrile. She weighs 98.4 kilograms. HEENT: Normocephalic, atraumatic. Extraocular muscles are intact. Sclerae are clear. NECK: Supple. She has no jugular distention. Carotids are full. LUNGS: Respirations are unlabored. Her chest is clear to auscultation and percussion. She has no presacral edema. HEART: Has an irregularly irregular rhythm without murmurs or gallops. ABDOMEN: Soft and normoactive. EXTREMITIES: Showed trace edema of the ankles. She does have a lot of swelling of her forearms from IV infiltration, chemically induced phlebitis, etc. LABORATORY DATA: Hemoglobin on 11/12/2016 was 12.6. INR today is 2.0. There are no recent digoxin levels available. IMPRESSION: 1. Atrial fibrillation with rapid ventricular response. 2. History of paroxysmal atrial fibrillation. 3. Recent hospitalization at [facility] for right hemispheric stroke. The patient has had normal recovery from this event. 4. Intractable nausea and vomiting on admission. 5. Pericardial effusion without obvious hemodynamic consequences. PLAN: Currently, the patient's heart rate response to atrial fibrillation is rapid again. She is only on metoprolol p.o. We will resume p.o. diltiazem and p.o. amiodarone and continue to monitor her vital signs. We will check a digoxin level along with a CBC to make sure that she is being therapeutically treated and that she has no other reason for her tachycardia. Further recommendations will continue to depend upon her response to therapy. We will only requesting records from [facility] regarding her recent hospitalization there. We thank Dr. Neto Curiel for asking our advice regarding the patient's care. [place], [place] PROGRESS NOTE NAME: BIGG RAMIRES UNIT #: [id number] ROOM: [facility] DOCTOR: ALISON NORMAN MD BIRTHDATE: [birth year] ALISON NORMAN MD CM:GAEL [phone] [id number] ALISON NORMAN MD 11/15/16 131 interface
--- NOTE | ~2016-11-12 | PR ---
[place], [place] PROGRESS NOTE NAME: BIGG RAMIRES [facility] #: [id number] UNIT #: [id number] ROOM: 408 DOCTOR: TANIKA SOLORZANO MD BIRTHDATE: [birth year] DOS: 11/18/2016 SUBJECTIVE: The patient is doing better. REVIEW OF SYSTEMS HEENT: No trouble swallowing. No double vision. No loss of vision. No pain. ENT AND RESPIRATORY: No wheeze. No change in voice. No cough. No shortness of breath. No coughing up blood. No epistaxis. CARDIOLOGIC: No chest pain. No dizziness. No irregular heartbeat. No leg edema. No palpitations. No shortness of breath. HEMATOLOGIC AND LYMPH: No past transfusion. No fatigue. No loss of appetite. No easy bruising. GASTROENEROLOGIC: No change in bowel habits. No vomiting blood. No abdominal cramping. No nausea. No vomiting. No diarrhea. No constipation. No blood in stool. FEMALE REPRODUCTIVE: No dyspareunia. No pelvic pain. MUSCULOSKELETAL: No back pain. No muscle pain or weakness. No tingling/numbness. UROLOGIC: No pain with urination. No difficulty urinating. No frequent urination. NEUROLOGIC: No burning pain in feet. No trouble with coordination. No loss of consciousness. No headache. No tingling/numbness. No memory loss. PHYSICAL EXAMINATION VITAL SIGNS: Stable. She is afebrile. HEENT: Normocephalic, atraumatic NECK AND THYROID: Supple. No JVD, thyromegaly, or lymphadenopathy. HEART: Normal S1, S2. Regular rate and rhythm. LUNGS: Clear to auscultation and percussion. ABDOMEN: Soft. Nontender, nondistended. Bowel sounds present. EXTREMITIES: Normal ROM. No clubbing. No edema. LABORATORY DATA: White count was 7.2, hemoglobin 10.6, hematocrit 33.7, platelet count of 497,000. TIBC 297, iron 24, saturation 8, EGFR more than 60, CA 125 was 66.4, ferritin was 17.9. ASSESSMENT: 1. Anemia with a component of iron deficiency. 2. Right adnexal mass. 3. Chronic atrial fibrillation. PLAN: We will be starting her on iron pills to be taken daily. Follow in the outpatient, want evaluation for right adnexal mass, then further intervention and discussed. [place], [place] PROGRESS NOTE NAME: NOE RAMIRESJERRY Vergara UNIT #: [id number] ROOM: 408 DOCTOR: TANIKA SOLORZANO MD BIRTHDATE: [birth year] TANIKA SOLORZANO MD CM:PNYOJANA [phone] TANIKA SOLORZANO MD 11/18/16 1530 interface
--- NOTE | ~2016-11-12 | PR ---
[place], [place] PROGRESS NOTE NAME: BIGG RAMIRES UNIT #: [id number] ROOM: [facility] DOCTOR: FANTA SHAW MD BIRTHDATE: [birth year] DOS: 11/13/2016 SUBJECTIVE: The patient is overall feeling better, but heart rates are still ranging between 100 to 130 beats per minute. PHYSICAL EXAMINATION: VITAL SIGNS: Blood pressure 123/60, heart rate of 109 beats per minute, breathing 18 times per minute, temperature 99.4 degrees Fahrenheit. GENERAL APPEARANCE: The patient is alert and oriented x 3, in no visible distress. HEENT AND NECK: Extraocular movements are intact. Sclerae are anicteric. Oral mucosa is moist and clean. No obvious facial weakness. Neck is supple without any lymphadenopathy. No thyromegaly. No JVD. No carotid arterial bruits. LUNGS: Clear to auscultation. No wheezing. No rhonchi. CARDIOVASCULAR SYSTEM: Irregularly irregular heart rate and tachycardic. ABDOMEN: Soft, nontender. No obvious organomegaly. Bowel sounds are present. No obvious herniation. EXTREMITIES: Without significant cyanosis or edema. Warm to touch. CENTRAL NERVOUS SYSTEM: Alert and oriented x 3. Cranial nerves II-XII are intact. Speech is normal. The patient is able to move all extremities. Normal muscle strength. Deep tendon reflexes are equal on both sides. Plantars were downgoing. IMPRESSION: 1. Chronic atrial fibrillation with rapid ventricular response. The patient now is being given digoxin by Cardiology to get her heart rate better controlled. She is already on amiodarone and diltiazem. 2. Benign essential hypertension with controlled blood pressures and metoprolol. 3. Gastroesophageal reflux disease and esophagitis, asymptomatic with Protonix. 4. Hypothyroidism. The patient is on levothyroxine, which is being continued. 5. Chronic atrial fibrillation. The patient is anticoagulated with Coumadin. INR therapeutic at 2. 6. Cardiac enzymes have been negative. [place], [place] PROGRESS NOTE NAME: BIGG RAMIRES UNIT #: [id number] ROOM: [facility] DOCTOR: FANTA SHAW MD BIRTHDATE: [birth year] FANTA SHAW MD CM:GAEL [phone] [id number] FANTA SHAW MD 11/13/16 2259 interface
--- NOTE | ~2016-11-12 | PR ---
[place], [place] PROGRESS NOTE NAME: BIGG RAMIRES [facility] #: [id number] UNIT #: [id number] ROOM: 408 DOCTOR: RASHAD SELF,TANIKA BIRTHDATE: [birth year] DOS: 11/17/2016 SUBJECTIVE: The patient is doing better. She was seen by Dr. Kruse who thought that there was something going on in her right ____ and wants to workup as an outpatient. PHYSICAL EXAMINATION: GENERAL: Pleasant woman in no apparent distress. VITAL SIGNS: Blood pressure is 136/56, heart rate is 100 beats per minute, respiratory rate is 20 and temperature is 98. HEENT: Normocephalic, atraumatic NECK AND THYROID: Supple. No JVD, thyromegaly, or lymphadenopathy. HEART: Normal S1, S2. Regular rate and rhythm. LUNGS: Clear to auscultation and percussion. ABDOMEN: Soft. Nontender, nondistended. Bowel sounds present. EXTREMITIES: Normal ROM. No clubbing. No edema. LABORATORY DATA: White count of 7.2, hemoglobin 10.6, hematocrit 33.7 and platelet count of 197,000. EGFR is more than 60. ASSESSMENT: 1. Right adnexal mass. 2. Chronic atrial fibrillation, now on digoxin, amiodarone and diltiazem. 3. Anemia of probably chronic disease. PLAN: I had a detailed discussion with the patient about her abdominal mass. Subsequently, she is being evaluated by Dr. Kruse who thinks there is something going on. He will be working her as an outpatient. In the meantime, as for the anemia is concerned, we are going to do anemia workup also. Follow as an outpatient. I had a detailed discussion with the patient about it and she seemed to understand it. Ample time was given for the patient to ask me questions. TANIKA SOLORZANO MD CM:PNYOJANA [phone] TANIKA SOLORZANO MD 11/17/16 1320 interface
--- NOTE | ~2016-11-12 | PR ---
[place], [place] PROGRESS NOTE [facility] [id number] UNIT #: [id number] ROOM: [facility] DOCTOR: FANTA SHAW MD BIRTHDATE: [birth year] DOS: 11/14/2016 SUBJECTIVE: The patient is feeling much better. Heart rate has improved and now ranging between 75-105 beats per minute at rest. OBJECTIVE: VITAL SIGNS: Blood pressure 115/62, heart rate 92 beats per minute, breathing 22 times per minute, afebrile. GENERAL APPEARANCE: The patient is alert and oriented x 3, in no visible distress. HEENT AND NECK: Exam within normal limits. CARDIOVASCULAR SYSTEM: Heart rate is irregularly irregular in rate and rhythm. S1 and S2 normally audible. LUNGS: Clear to auscultation. ABDOMEN: Soft, nontender. No obvious organomegaly. Bowel sounds are present. EXTREMITIES: Without significant cyanosis or edema. IMPRESSION: 1. The patient with chronic atrial fibrillation with rapid ventricular response, heart rate is improving with amiodarone, digoxin, beta blockers and Cardizem. Case was discussed with cardiology today and we will start removing the IV amiodarone and diltiazem gradually. 2. Benign essential hypertension with controlled blood pressures. 3. Gastroesophageal reflux disease and esophagitis, asymptomatic with Protonix. 4. Chronic atrial fibrillation. The patient is anticoagulated with Coumadin. INR therapeutic at 2.4. FANTA SHAW MD CM:PNTRANS 1351 1530 FANTA SHAW MD 11/14/16 1530 interface
[2016-11-12 07:43] LABS: BASO # 0.1 10*3/uL (0.0-0.1); BASO % 0.7 % (0.0-1.0); EOS # 0.3 10*3/uL (0.0-0.4); EOS % 2.5 % (1.0-4.0); HEMATOCRIT 39.2 % (37.0-47.0); HEMOGLOBIN 12.6 g/dl (12.0-16.0); LYMPH # 1.8 10*3/uL (1.3-4.4); LYMPH % 16.9 % (27.0-41.0); MEAN CELL VOLUME 91.8 fl (81.0-99.0); MEAN CORPUSCULAR HGB 29.5 pg (27.0-31.0); MEAN CORPUSCULAR HGB CONC 32.1 g/dl (33.0-37.0); MEAN PLATELET VOLUME 12.3 fl (9.6-12.3); MONO % 9.6 % (3.0-9.0); NEUT # 7.5 10*3/uL (2.3-7.9); NEUT % 69.9 % (47.0-73.0); PLATELET COUNT AUTOMATED 238 10*3/uL (130-400); RED BLOOD COUNT 4.27 10*6/uL (4.10-5.10); RED CELL DISTRI WIDTH 14.5 % (0-14.5); WHITE BLOOD COUNT 10.7 10*3/uL (4.8-10.8)
[2016-11-12 07:53] LABS: INTERNATIONAL NORM RATIO 2.3 (2.0-3.5); PROTHROMBIN TIME 25.8 SECONDS (9.0-12.4)
[2016-11-12 07:58] LABS: ALBUMIN 3.1 gm/dl (3.1-4.5); ALKALINE PHOSPHATASE 105 U/L (45-117); BILIRUBIN, TOTAL 1.1 mg/dl (0.2-1.0); BUN 19 mg/dl (7-24); C-REACTIVE PROTEIN 1.83 MG/DL (0-0.3); CARBON DIOXIDE 25 mmol/L (21-32); CHLORIDE 107 mmol/L (98-107); CPK 31 U/L (26-192); EST GLOM FILT AFRICAN AMERICAN 46 ml/min; GLUCOSE 108 mg/dL (65-99); MAGNESIUM 1.8 mg/dL (1.5-2.1); POTASSIUM 4.1 mmol/L (3.5-5.1); SGOT/AST 73 IU/L (3-35); SGPT/ALT 227 U/L (12-78); SODIUM 142 mmol/L (136-145)
[2016-11-12 07:59] LABS: CKMB < 0.5 ng/ml (0.5-3.6); TROPONIN I < 0.015 ng/ml (<0.045)
[2016-11-12 09:00] LABS: BILIRUBIN NEGATIVE (NEGATIVE); BLOOD NEGATIVE (NEGATIVE); CLARITY CLEAR (CLEAR); COLOR YELLOW (YELLOW); GLUCOSE NEGATIVE (NEGATIVE); KETONE NEGATIVE (NEGATIVE); LEUKO ESTERASE NEGATIVE (NEGATIVE); NITRITE NEGATIVE (NEGATIVE); PROTEIN 1+ (NEGATIVE)
[2016-11-12 09:10] LABS: EPITHELIAL CELLS 0-2; HYALINE CAST 0-2; MUCOUS 1+; RBC 0-2 rbc/hpf (0-2); URINE REFLEX COMMENT YES (NO)
[2016-11-12] MEDS ORDERED: COUMADIN2.5 M1 PO (13:18)
[2016-11-12] MEDS ORDERED: ATENOLOL25 MG PO (13:18)
[2016-11-12] MEDS ORDERED: LIPITOR20 MG PO (13:19)
[2016-11-12] MEDS ORDERED: PANTOPRAZOLE SO40 MG PO (13:19)
[2016-11-13] VITALS (12 sets, daily range): BP systolic 102–133; BP diastolic 38–97
[2016-11-13 05:08] LABS: RHEUMATOID ARTHRITIS FACTOR <10.0 IU/mL (0.0-13.9)
[2016-11-13 08:34] LABS: ALBUMIN 2.9 gm/dl (3.1-4.5); ALKALINE PHOSPHATASE 92 U/L (45-117); BILIRUBIN, TOTAL 1.3 mg/dl (0.2-1.0); BUN 13 mg/dl (7-24); CARBON DIOXIDE 24 mmol/L (21-32); CHLORIDE 107 mmol/L (98-107); EST GLOM FILT AFRICAN AMERICAN > 60 ml/min; GLUCOSE 103 mg/dL (65-99); POTASSIUM 4.4 mmol/L (3.5-5.1); SGOT/AST 40 IU/L (3-35); SGPT/ALT 163 U/L (12-78); SODIUM 140 mmol/L (136-145); TOTAL PROTEIN 5.7 gm/dL (6.4-8.2)
[2016-11-14] VITALS (11 sets, daily range): BP systolic 94–118; BP diastolic 47–80
[2016-11-14 06:42] LABS: INTERNATIONAL NORM RATIO 2.4 (2.0-3.5); PROTHROMBIN TIME 26.4 SECONDS (9.0-12.4)
[2016-11-14] MEDS ORDERED: ASPIR LOW81 MG PO (12:29)
[2016-11-14] MEDS ORDERED: CALAN SR240 MG PO (12:34)
[2016-11-14] MEDS ORDERED: PRINIVIL10 MG PO (12:37)
[2016-11-15] VITALS: BP 108/56
[2016-11-15 04:00] VITALS: BP 113/63
[2016-11-15 08:00] VITALS: BP 111/59
[2016-11-15 12:00] VITALS: BP 117/52
[2016-11-15 16:00] VITALS: BP 118/62
[2016-11-15 20:00] VITALS: BP 101/46
[2016-11-16] VITALS: BP 105/48
[2016-11-16 04:00] VITALS: BP 97/43
[2016-11-16 05:26] LABS: ALBUMIN 2.3 gm/dl (3.1-4.5); BUN 8 mg/dl (7-24); CARBON DIOXIDE 31 mmol/L (21-32); CHLORIDE 105 mmol/L (98-107); GLUCOSE 92 mg/dL (65-99); POTASSIUM 3.3 mmol/L (3.5-5.1); SODIUM 143 mmol/L (136-145)
[2016-11-16 05:41] LABS: ALKALINE PHOSPHATASE 66 U/L (45-117); BILIRUBIN, TOTAL 0.6 mg/dl (0.2-1.0); DIGOXIN 0.85 ng/ml (0.8-2.0); EST GLOM FILT AFRICAN AMERICAN > 60 ml/min; SGOT/AST 11 IU/L (3-35); SGPT/ALT 58 U/L (12-78); TOTAL PROTEIN 4.8 gm/dL (6.4-8.2)
[2016-11-16 06:16] LABS: BASO # 0.1 10*3/uL (0.0-0.1); BASO % 0.7 % (0.0-1.0); EOS # 0.3 10*3/uL (0.0-0.4); EOS % 3.7 % (1.0-4.0); HEMATOCRIT 33.7 % (37.0-47.0); HEMOGLOBIN 10.6 g/dl (12.0-16.0); LYMPH # 2.1 10*3/uL (1.3-4.4); LYMPH % 29.6 % (27.0-41.0); MEAN CELL VOLUME 91.1 fl (81.0-99.0); MEAN CORPUSCULAR HGB 28.6 pg (27.0-31.0); MEAN CORPUSCULAR HGB CONC 31.5 g/dl (33.0-37.0); MEAN PLATELET VOLUME 12.4 fl (9.6-12.3); MONO # 0.6 10*3/uL (0.1-1.0); MONO % 8.7 % (3.0-9.0); NEUT # 4.1 10*3/uL (2.3-7.9); PLATELET COUNT AUTOMATED 197 10*3/uL (130-400); RED CELL DISTRI WIDTH 14.4 % (0-14.5); WHITE BLOOD COUNT 7.2 10*3/uL (4.8-10.8)
[2016-11-16 06:28] LABS: INTERNATIONAL NORM RATIO 1.8 (2.0-3.5); PROTHROMBIN TIME 20.1 SECONDS (9.0-12.4)
[2016-11-16 08:00] VITALS: BP 115/62
[2016-11-16 12:00] VITALS: BP 106/70
[2016-11-16 16:00] VITALS: BP 114/69
[2016-11-16 20:00] VITALS: BP 99/57
[2016-11-17] VITALS: BP 106/70
[2016-11-17 07:10] LABS: INTERNATIONAL NORM RATIO 1.8 (2.0-3.5); PROTHROMBIN TIME 19.5 SECONDS (9.0-12.4)
[2016-11-17 08:00] VITALS: BP 136/56
[2016-11-17 12:00] VITALS: BP 140/66
[2016-11-17 16:00] VITALS: BP 93/55
[2016-11-17 20:00] VITALS: BP 115/66
[2016-11-18] VITALS: BP 112/48
[2016-11-18 07:24] LABS: INTERNATIONAL NORM RATIO 1.8 (2.0-3.5); PROTHROMBIN TIME 19.4 SECONDS (8.9-12.2)
[2016-11-18 07:26] LABS: DIGOXIN 0.65 ng/ml (0.8-2.0)
[2016-11-18 08:00] VITALS: BP 112/56
[2016-11-18 12:00] VITALS: BP 114/56; BP 98/56
[2016-11-18 13:03] VITALS: BP 112/70
[2016-11-18 16:00] VITALS: BP 106/70
[2016-11-18] MEDS ORDERED: LANOXIN0.125 MG PO (16:09)
[2016-11-18] MEDS ORDERED: SEPTRA DS 800 M1 TAB PO (16:09)
[2016-11-18] MEDS ORDERED: METOPROLOL SUC100 M1 PO (16:09)
[2016-11-18] MEDS ORDERED: CARDIZEM CD120 M2 PO (16:09)
[2016-11-18] MEDS ORDERED: XANAX0.5 MG PO (16:18)
[2016-11-18 20:00] VITALS: BP 112/74
== END 2016-11-18 20:41 | disposition other institution (70) | DRG 308 ==
LOC: ED 07:14 → EDHOLD 11:20 → 4E 11:20 → ICCU 11:20 → 4E 11-16 17:16
PROVIDERS: Emergency Medicine; Internal Medicine; Internal Medicine Cardiovascular Disease; Internal Medicine Hematology & Oncology
DX: I48.2 Chronic atrial fibrillation (principal); I50.21 Acute systolic (congestive) heart failure; J96.20 Acute and chronic respiratory failure, unspecified whether with hypoxia or hypercapnia; N17.0 Acute kidney failure with tubular necrosis; I31.3 Pericardial effusion (noninflammatory); L03.114 Cellulitis of left upper limb; N85.8 Other specified noninflammatory disorders of uterus; D63.8 Anemia in other chronic diseases classified elsewhere; F41.1 Generalized anxiety disorder; I11.0 Hypertensive heart disease with heart failure; K21.0 Gastro-esophageal reflux disease with esophagitis; R62.7 Adult failure to thrive; E03.9 Hypothyroidism, unspecified; E78.5 Hyperlipidemia, unspecified; J44.9 Chronic obstructive pulmonary disease, unspecified; D50.9 Iron deficiency anemia, unspecified; R19.09 Other intra-abdominal and pelvic swelling, mass and lump; I48.0 Paroxysmal atrial fibrillation; I25.10 Atherosclerotic heart disease of native coronary artery without angina pectoris; Z95.5 Presence of coronary angioplasty implant and graft; Z79.01 Long term (current) use of anticoagulants; Z88.0 Allergy status to penicillin; Z79.899 Other long term (current) drug therapy; Z86.73 Personal history of transient ischemic attack (TIA), and cerebral infarction without residual deficits; Z90.710 Acquired absence of both cervix and uterus

== ENCOUNTER → 2017-04-04 | Outpatient (CLI) | payer MEDICARE ==
[~2017-04-04] MED LIST changes: +ASPIR LOW81 MG PO; +ATENOLOL25 MG PO; +CARDIZEM CD120 M2 PO; +COUMADIN2.5 M1 PO; +LANOXIN0.125 MG PO; +LIPITOR20 MG PO; +METOPROLOL SUC100 M1 PO; +PANTOPRAZOLE SO40 MG PO; +PRINIVIL10 MG PO; +SEPTRA DS 800 M1 TAB PO
== END | disposition home or self-care (01) ==
LOC: US 12:09
DX: R10.31 Right lower quadrant pain (principal); N83.209 Unspecified ovarian cyst, unspecified side

== ENCOUNTER 2017-05-11 13:33 | Emergency (ER) | payer MEDICARE ==
[~2017-05-11] VITALS: Ht 172.7 cm; Wt 87.1 kg
[2017-05-11 14:07] LABS: BASO # 0.1 10*3/uL (0.0-0.1); BASO % 1.1 % (0.0-1.0); EOS # 0.2 10*3/uL (0.0-0.4); EOS % 1.6 % (1.0-4.0); HEMATOCRIT 47.5 % (37.0-47.0); HEMOGLOBIN 15.6 g/dl (12.0-16.0); LYMPH # 1.9 10*3/uL (1.3-4.4); LYMPH % 18.5 % (27.0-41.0); MEAN CORPUSCULAR HGB 29.5 pg (27.0-31.0); MEAN CORPUSCULAR HGB CONC 32.8 g/dl (33.0-37.0); MONO # 0.6 10*3/uL (0.1-1.0); MONO % 5.7 % (3.0-9.0); NEUT # 7.3 10*3/uL (2.3-7.9); NEUT % 72.2 % (47.0-73.0); PLATELET COUNT AUTOMATED 243 10*3/uL (130-400); RED BLOOD COUNT 5.28 10*6/uL (4.10-5.10); RED CELL DISTRI WIDTH 15.4 % (0-14.5); WHITE BLOOD COUNT 10.2 10*3/uL (4.8-10.8)
[2017-05-11 14:21] LABS: ACT PARTIAL THROMBO TIME 43.8 SECONDS (20.8-31.5)
[2017-05-11 14:24] LABS: CREATININE 1.54 mg/dL (0.55-1.02); INTERNATIONAL NORM RATIO 5.5 (2.0-3.5); POTASSIUM 4.8 mmol/L (3.5-5.1)
[2017-05-11 14:48] LABS: TROPONIN I < 0.015 ng/ml (<0.045)
== END 2017-05-11 15:45 | disposition home or self-care (01) ==
LOC: ED 13:33
PROVIDERS: Emergency Medicine
DX: R79.1 Abnormal coagulation profile (principal); R51 Headache; F17.200 Nicotine dependence, unspecified, uncomplicated; I48.91 Unspecified atrial fibrillation; Z88.0 Allergy status to penicillin

== ENCOUNTER 2017-08-09 10:17 | Emergency (ER) | payer MEDICARE ==
[~2017-08-09] VITALS: Wt 84.8 kg
[2017-08-09] MEDS ORDERED: XANAX0.5 MG PO (10:26)
[2017-08-09 10:43] LABS: BASO # 0.1 10*3/uL (0.0-0.1); BASO % 0.7 % (0.0-1.0); EOS # 0.1 10*3/uL (0.0-0.4); EOS % 0.9 % (1.0-4.0); HEMATOCRIT 43.6 % (37.0-47.0); HEMOGLOBIN 14.2 g/dl (12.0-16.0); LYMPH # 1.6 10*3/uL (1.3-4.4); LYMPH % 19.1 % (27.0-41.0); MEAN CELL VOLUME 93.8 fl (81.0-99.0); MEAN CORPUSCULAR HGB 30.5 pg (27.0-31.0); MEAN CORPUSCULAR HGB CONC 32.6 g/dl (33.0-37.0); MEAN PLATELET VOLUME 11.2 fl (9.6-12.3); MONO # 0.6 10*3/uL (0.1-1.0); MONO % 6.8 % (3.0-9.0); NEUT # 6.1 10*3/uL (2.3-7.9); NEUT % 72.3 % (47.0-73.0); PLATELET COUNT AUTOMATED 193 10*3/uL (130-400); RED BLOOD COUNT 4.65 10*6/uL (4.10-5.10); RED CELL DISTRI WIDTH 14.6 % (0-14.5); WHITE BLOOD COUNT 8.5 10*3/uL (4.8-10.8)
[2017-08-09 10:59] LABS: ALBUMIN 2.9 gm/dl (3.1-4.5); CREATININE 1.57 mg/dL (0.55-1.02); POTASSIUM 4.2 mmol/L (3.5-5.1); TOTAL PROTEIN 6.2 gm/dL (6.4-8.2)
== END 2017-08-09 14:26 | disposition home or self-care (01) ==
LOC: ED 10:17
PROVIDERS: Emergency Medicine
DX: T14.90XA Injury, unspecified, initial encounter (principal); R42 Dizziness and giddiness; I48.91 Unspecified atrial fibrillation; Z88.0 Allergy status to penicillin; Z86.73 Personal history of transient ischemic attack (TIA), and cerebral infarction without residual deficits; W18.39XA Other fall on same level, initial encounter; Y93.89 Activity, other specified; Y92.89 Other specified places as the place of occurrence of the external cause; Y99.8 Other external cause status

== ENCOUNTER → 2017-11-02 | Outpatient (CLI) | payer MEDICARE ==
[~2017-11-02] MED LIST changes: +COUMADIN1 M1 PO; +COUMADIN3 M1 PO; +CYPROHEPTADINE H4 M1 PO; +Coumadin2 MG PO; +DIGOX125 MCG PO; +K-TAB10 MEQ PO; +LASIX40 MG PO; +LIPITOR10 MG PO; +OMEPRAZOLE20 M2 PO; +PACERONE200 MG PO; +Synthroid,Levo25 MCG PO; +VITAMIN D50000 UNIT PO
== END | disposition home or self-care (01) ==
LOC: CT 10-28 14:00
DX: I65.23 Occlusion and stenosis of bilateral carotid arteries (principal); I10 Essential (primary) hypertension; R51 Headache; R42 Dizziness and giddiness; R41.3 Other amnesia; F17.200 Nicotine dependence, unspecified, uncomplicated; Z86.73 Personal history of transient ischemic attack (TIA), and cerebral infarction without residual deficits

== ENCOUNTER 2017-11-12 12:07 | Inpatient (IN) | payer MEDICARE ==
[~2017-11-12] VITALS: Ht 172.7 cm; Wt 81.6 kg
--- NOTE | ~2017-11-12 | PR ---
[place], [place] PROGRESS NOTE NAME[facility] [id number] UNIT #: [id number] ROOM: 526 DOCTOR: FANTA SHAW MD BIRTHDATE: [birth year] DOS: 11/13/2017 SUBJECTIVE: The patient is still feeling very depressed, somewhat nauseous. She has a headache and no appetite, feeling quite weak. OBJECTIVE: VITAL SIGNS: Blood pressure 110/59, heart rate of 83 beats per minute, breathing 17 times per minute, temperature 98 degrees Fahrenheit. GENERAL APPEARANCE: The patient is alert and oriented x 3, in no visible distress. Generalized weakness. HEENT AND NECK: Exam within normal limits. CARDIOVASCULAR SYSTEM: Heart rate is regular in rate and rhythm. S1 and S2 normally audible. LUNGS: Clear to auscultation. ABDOMEN: Soft, nontender. No obvious organomegaly. Bowel sounds are present. EXTREMITIES: Without significant cyanosis or edema. IMPRESSION: 1. The patient with acute and major depression, which has been recurrent in the past, especially after the of her . Dr. Vieira, the psychiatrist to follow. 2. Severe and generalized anxiety, being treated with Xanax as needed. 3. Chronic atrial fibrillation. The patient's heart rates are controlled with digoxin and she is anticoagulated adequately with Coumadin. 4. Protimes are being monitored and INR kept between 2 and 3. 5. Gastroesophageal reflux disease and heartburn, treated with Protonix. 6. Hypothyroidism, treated with levothyroxine. 7. Poor appetite and mild protein-calorie malnutrition with albumin level of 3. The patient is being encouraged to eat and started on proteins, started on nutritional supplements as well as GI consult has been obtained. 8. Elevation of liver enzymes from uncertain etiology. Hepatitis screening has been ordered. FANTA SHAW MD CM:PNTRANS 15 [phone] FANTA SHAW MD [id number]/13/[id number] interface
--- NOTE | ~2017-11-12 | EKG ---
[place], [place] ELECTROCARDIOGRAM REPORT NAME: BIGG RAMIRES UNIT #: [id number] ROOM: 526 DOCTOR: ALEXANDRIA DRAFT REPORT BIRTHDATE: [birth year] 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
--- NOTE | ~2017-11-12 | DS ---
[place], [place] DISCHARGE SUMMARY [id number] UNIT #: [id number] ROOM: 526 DOCTOR: FANTA SHAW MD BIRTHDATE: [birth year] DOS: 11/15/2017 DISCHARGE DIAGNOSES: 1. Major depression, acute over recurrent related to the recent of her boyfriend. 2. Adult failure to thrive. 3. Chronic atrial fibrillation. 4. Hypothyroidism. 5. Elevated liver enzymes. Hepatitis panel was negative. 6. Generalized anxiety disorder. 7. Previous history of right adnexal mass, followed by Dr. Kruse, the ENDOCRINOLOGY NURSE and Dr. Ramey, the oncologist in the past. 8. Anemia of chronic disease. 9. Gastroesophageal reflux disease and esophagitis. 10. Benign essential hypertension. 11. Hypothyroidism. 12. Mixed hyperlipidemia. 13. Chronic obstructive pulmonary disease. 14. Moderate pericardial effusion without tamponade in the past. 15. Gastritis on EGD and diverticulosis on colonoscopy in the past. HOSPITAL COURSE: The patient was admitted when she was not eating well since the of her boyfriend and was getting weaker and falling off and on without any episodes of loss of consciousness. The patient had problems with adult failure to thrive prior to her boyfriend's . The patient was admitted, seen by Psychiatry and treated with physical therapy including hydration with normal saline and treated with appetite stimulant and nutritional supplements and she has significantly improved. The patient has agreed to go to senior care facility for rehabilitation. 1. Chronic atrial fibrillation, heart rates are controlled with digoxin. The patient also anticoagulated with Coumadin. Protimes are monitored. 2. There were some liver enzyme elevations. I checked a hepatitis profile, which came out as negative. 3. Gastroesophageal reflux disease and esophagitis, asymptomatic with Protonix. 4. Hypothyroidism, treated with levothyroxine. 5. Advance adult failure to thrive for quite some time. The patient worked with physical therapy and nutritional support was provided. 6. Acute major depression after the of her boyfriend recently. The patient was seen by Psychiatry. 7. Hypokalemia, resolved with treatment. 8. Worsening of kidney function and acute over chronic kidney disease, creatinine improved to 1.06 with hydration with normal saline, improved from 1.75 at admission, apparently related to vascular cause, which is dehydration. LABORATORY DATA: Normal serum electrolytes. INR 3.2, hemoglobin 11.5. Urine cultures were negative. No leukocytosis. DISCHARGE MANAGEMENT: Levothyroxine 25 mcg daily, digoxin 125 mcg every other day, cyproheptadine 4 mg t.i.d. for a month, Tylenol 1000 mg every 8 hours as [place], [place] DISCHARGE SUMMARY NAME: BIGG RAMIRES UNIT #: [id number] ROOM: 526 DOCTOR: FANTA SHAW MD BIRTHDATE: [birth year] needed for pain, Protonix 40 mg a day, amiodarone 200 mg b.i.d., Coumadin 3 mg daily. Check protimes at admission and also in 1 week and then monthly. Xanax 0.5 mg every 8 hours p.r.n. for anxiety. FANTA SHAW MD CM:CLEO [id number] FANTA SHAW MD 11/16/17 0345 interface
--- NOTE | ~2017-11-12 | WRIGHTHP ---
[place], [place] PATIENT HISTORY AND PHYSICAL EXAM NAME: BIGG RMAIRES [facility] #: [id number] UNIT #: [id number] ROOM: 526 DOCTOR: FANTA SHAW MD BIRTHDATE: [birth year] DOS: 11/12/2017 HISTORY OF PRESENT ILLNESS: The patient is a 72-year-old female with recent of her . Since then, she has not been eating much, feeling very weak and has been falling off and on at home. No complaints of chest pain, no shortness of breath, no GI or urinary symptoms, past medical history of: 1. Chronic atrial fibrillation. 2. History of right adnexal mass followed by Dr. Kruse of MEDICAL PATHOLOGIST and Dr. Ramey, the oncologist in the past. 3. Anemia of chronic disease. 4. Generalized anxiety disorder. 5. GERD and esophagitis. 6. Adult failure to thrive. 7. Benign essential hypertension. 8. Hypothyroidism. 9. Mixed hyperlipidemia. 10. COPD. 11. Moderate pericardial effusion without tamponade in the past. 12. Gastritis on EGD and diverticulosis on colonoscopy in the past. The patient presented to the Emergency Department at [facility] after recent of her . The patient has not been eating well since the of her and is getting weaker and falling off and on without episodes of loss of consciousness. Even prior to her 's , the patient had significant issues with adult failure to thrive. No chest pain, no shortness of breath, no other GI or urinary symptoms. REVIEW OF SYSTEMS: RESPIRATORY: No increasing shortness of breath or wheezing. GASTROINTESTINAL: No nausea, vomiting, but poor appetite. No diarrhea. CARDIOVASCULAR SYSTEM: No chest pain or palpitations. FAMILY HISTORY: Noncontributory. SOCIAL HISTORY: Denies smoking cigarettes, alcohol or any drug abuse. ALLERGIES: Known allergies to PENICILLIN. PHYSICAL EXAMINATION: GENERAL: Alert, oriented x 3. Looking very weak and depressed. Generalized weakness. VITAL SIGNS: Blood pressure 124/80, heart rate 75 beats per minute, breathing 16 times per minute, afebrile. HEENT AND NECK: Extraocular movements are intact. Sclerae are anicteric. Oral mucosa is moist and clean. No obvious facial weakness. Neck is supple without any lymphadenopathy. No thyromegaly. No JVD. No carotid arterial bruits. LUNGS: Clear to auscultation. No wheezing. No rhonchi. CARDIOVASCULAR SYSTEM: Heart rate is regular in rate and rhythm. S1 and S2 normally audible. No significant murmur or any other abnormal cardiac sounds. ABDOMEN: Soft, nontender. No obvious organomegaly. Bowel sounds are present. [place], [place] PATIENT HISTORY AND PHYSICAL EXAM [id number] UNIT #: [id number] ROOM: 526 DOCTOR: FANTA SHAW MD BIRTHDATE: [birth year] No obvious herniation. EXTREMITIES: Without significant cyanosis or edema. Warm to touch. CENTRAL NERVOUS SYSTEM: Alert and oriented x 3. Cranial nerves II-XII are intact. Speech is normal. The patient is able to move all extremities. Normal muscle strength. Deep tendon reflexes are equal on both sides. Plantars were downgoing. LABORATORY DATA: Chest x-ray without any acute abnormality. BUN and creatinine 25 and 1.75. Elevation of liver enzymes, AST of 148 and ALT of 193. INR 2.8. Normal CBC. IMPRESSION AND PLAN: 1. Adult failure to thrive, acute major depression after the of her . I am consulting Dr. Vieira to see her and consider transfer to Behavioral Health Unit for further treatment. 2. Adult failure to thrive, poor appetite, not eating much. I am starting her on nutritional supplements and appetite stimulants. 3. Adult failure to thrive with generalized weakness and falls. I have started the patient on physical therapy. 4. Liver enzyme elevation. The patient is being checked for hepatitis. 5. Gastroesophageal reflux disease and esophagitis. The patient continued on Protonix. 6. Chronic atrial fibrillation, treated with digoxin. Heart rates are controlled. The patient anticoagulated with Coumadin with therapeutic INR protime will be monitored. The patient continued on Coumadin and amiodarone. 7. Generalized anxiety disorder, treated with Xanax as needed. 8. Hypothyroidism, replaced with levothyroxine. FANTA SHAW MD CM:HISPHYS:PATIENT HISTORY AND PHYSICAL EXAMINATION 1630 1900 FANTA SHAW MD 11/12/17 1850 interface
--- NOTE | ~2017-11-12 | PR ---
[place], [place] PROGRESS NOTE [id number] UN[facility] #: [id number] ROOM: 526 DOCTOR: FANTA SHAW MD BIRTHDATE: [birth year] DOS: 11/14/2017 SUBJECTIVE: The patient looks quite weak, but improving. She is eating. She is taking two cans of Ensure daily now other than her food. Her appetite is improved with perioctin. OBJECTIVE: GENERAL APPEARANCE: The patient is alert and oriented x 3, in no visible distress, generalized weakness. VITAL SIGNS: Blood pressure 123/44, heart rate 90 beats per minute, breathing 18 times per minute, temperature 98 degrees Fahrenheit. HEENT AND NECK: Exam within normal limits. CARDIOVASCULAR SYSTEM: Heart rate is regular in rate and rhythm. S1 and S2 normally audible. LUNGS: Clear to auscultation. ABDOMEN: Soft, nontender. No obvious organomegaly. Bowel sounds are present. EXTREMITIES: Without significant cyanosis or edema. IMPRESSION: 1. The patient with acute and major depression after the of her boyfriend is being followed by Psychiatry. 2. Adult failure to thrive, generalized weakness, and protein calorie malnutrition. The patient is on nutritional supplements and eating better. 3. Advance adult failure to thrive. The patient has agreed to go to [facility] for rehabilitation. 4. Chronic atrial fibrillation with controlled heart rates and the patient anticoagulated with Coumadin, which is therapeutic. 5. INR therapeutic at 2.9 and is being monitored. 6. Hypothyroidism, treated with levothyroxine. 7. Elevation of liver enzymes. Hepatitis screening ordered, but not reported. FANTA SHAW MD CM:PNTRANS [id number] FANTA SHAW MD 11/24/17 0657 interface
[~2017-11-12 12:07] MED LIST changes: -COUMADIN1 M1 PO; -COUMADIN3 M1 PO; -CYPROHEPTADINE H4 M1 PO; -Coumadin2 MG PO; -DIGOX125 MCG PO; -K-TAB10 MEQ PO; -LASIX40 MG PO; -LIPITOR10 MG PO; -OMEPRAZOLE20 M2 PO; -PACERONE200 MG PO; -Synthroid,Levo25 MCG PO; -VITAMIN D50000 UNIT PO
[2017-11-12 12:13] VITALS: BP 118/55
[2017-11-12 13:22] LABS: BASO % 0.2 % (0.0-1.0); EOS # 0.1 10*3/uL (0.0-0.4); EOS % 0.7 % (1.0-4.0); HEMATOCRIT 41.1 % (37.0-47.0); HEMOGLOBIN 13.6 g/dl (12.0-16.0); LYMPH # 0.8 10*3/uL (1.3-4.4); LYMPH % 9.4 % (27.0-41.0); MEAN CELL VOLUME 92.4 fl (81.0-99.0); MEAN CORPUSCULAR HGB 30.6 pg (27.0-31.0); MEAN CORPUSCULAR HGB CONC 33.1 g/dl (33.0-37.0); MEAN PLATELET VOLUME 11.2 fl (9.6-12.3); MONO # 0.8 10*3/uL (0.1-1.0); MONO % 8.7 % (3.0-9.0); NEUT # 7.2 10*3/uL (2.3-7.9); NEUT % 80.7 % (47.0-73.0); PLATELET COUNT AUTOMATED 213 10*3/uL (130-400); RED BLOOD COUNT 4.45 10*6/uL (4.10-5.10); RED CELL DISTRI WIDTH 13.9 % (0-14.5); WHITE BLOOD COUNT 8.9 10*3/uL (4.8-10.8)
[2017-11-12 13:30] LABS: INTERNATIONAL NORM RATIO 2.8 (2.0-3.5)
[2017-11-12 13:37] LABS: CREATININE 1.75 mg/dL (0.55-1.02); POTASSIUM 3.7 mmol/L (3.5-5.1)
[2017-11-12 14:02] VITALS: BP 138/67
[2017-11-12 15:16] VITALS: BP 124/80
[2017-11-12 16:21] VITALS: BP 115/56
[2017-11-12 16:54] VITALS: BP 124/55
[2017-11-12] MEDS ORDERED: XANAX0.5 MG PO (17:17)
[2017-11-12] MEDS ORDERED: LASIX40 MG PO (17:19)
[2017-11-12] MEDS ORDERED: DIGOX125 MCG PO (17:20)
[2017-11-12] MEDS ORDERED: PACERONE200 MG PO (17:21)
[2017-11-12] MEDS ORDERED: METOPROLOL SUC100 M1 PO (17:21)
[2017-11-12] MEDS ORDERED: K-TAB10 MEQ PO (17:22)
[2017-11-12] MEDS ORDERED: COUMADIN3 M1 PO (17:22)
[2017-11-12] MEDS ORDERED: Synthroid,Levo25 MCG PO (17:22)
[2017-11-12] MEDS ORDERED: LIPITOR10 MG PO (17:23)
[2017-11-12 18:29] LABS: BILIRUBIN NEGATIVE (NEGATIVE); BLOOD NEGATIVE (NEGATIVE); CLARITY CLEAR (CLEAR); COLOR YELLOW (YELLOW); GLUCOSE NEGATIVE (NEGATIVE); KETONE NEGATIVE (NEGATIVE); LEUKO ESTERASE 1+ (NEGATIVE); NITRITE NEGATIVE (NEGATIVE)
[2017-11-12 21:28] VITALS: BP 102/43
[2017-11-13 00:55] VITALS: BP 101/41
[2017-11-13 05:52] LABS: BASO % 0.6 % (0.0-1.0); EOS # 0.1 10*3/uL (0.0-0.4); EOS % 1.1 % (1.0-4.0); HEMATOCRIT 36.8 % (37.0-47.0); HEMOGLOBIN 11.8 g/dl (12.0-16.0); LYMPH # 1.1 10*3/uL (1.3-4.4); LYMPH % 17.1 % (27.0-41.0); MEAN CELL VOLUME 94.6 fl (81.0-99.0); MEAN CORPUSCULAR HGB 30.3 pg (27.0-31.0); MEAN CORPUSCULAR HGB CONC 32.1 g/dl (33.0-37.0); MEAN PLATELET VOLUME 11.4 fl (9.6-12.3); MONO # 0.7 10*3/uL (0.1-1.0); NEUT # 4.6 10*3/uL (2.3-7.9); NEUT % 69.7 % (47.0-73.0); PLATELET COUNT AUTOMATED 178 10*3/uL (130-400); RED BLOOD COUNT 3.89 10*6/uL (4.10-5.10); RED CELL DISTRI WIDTH 14.1 % (0-14.5); WHITE BLOOD COUNT 6.7 10*3/uL (4.8-10.8)
[2017-11-13 06:07] LABS: CREATININE 1.48 mg/dL (0.55-1.02); POTASSIUM 3.4 mmol/L (3.5-5.1)
[2017-11-13 06:08] LABS: INTERNATIONAL NORM RATIO 2.6 (2.0-3.5)
[2017-11-13 08:00] VITALS: BP 110/59
[2017-11-13 13:02] VITALS: BP 123/62
[2017-11-13 16:57] VITALS: BP 99/47
[2017-11-13 21:07] VITALS: BP 90/44
[2017-11-14 01:14] VITALS: BP 92/56
[2017-11-14 06:20] LABS: BASO % 0.5 % (0.0-1.0); EOS # 0.1 10*3/uL (0.0-0.4); EOS % 1.2 % (1.0-4.0); HEMATOCRIT 36.8 % (37.0-47.0); HEMOGLOBIN 11.8 g/dl (12.0-16.0); INTERNATIONAL NORM RATIO 2.9 (2.0-3.5); LYMPH # 1.3 10*3/uL (1.3-4.4); LYMPH % 21.9 % (27.0-41.0); MEAN CELL VOLUME 97.1 fl (81.0-99.0); MEAN CORPUSCULAR HGB 31.1 pg (27.0-31.0); MEAN CORPUSCULAR HGB CONC 32.1 g/dl (33.0-37.0); MEAN PLATELET VOLUME 11.1 fl (9.6-12.3); MONO # 0.6 10*3/uL (0.1-1.0); MONO % 9.1 % (3.0-9.0); NEUT # 4.1 10*3/uL (2.3-7.9); NEUT % 66.6 % (47.0-73.0); PLATELET COUNT AUTOMATED 176 10*3/uL (130-400); RED BLOOD COUNT 3.79 10*6/uL (4.10-5.10); RED CELL DISTRI WIDTH 14.2 % (0-14.5); WHITE BLOOD COUNT 6.1 10*3/uL (4.8-10.8)
[2017-11-14 06:29] LABS: CREATININE 1.27 mg/dL (0.55-1.02); POTASSIUM 3.9 mmol/L (3.5-5.1)
[2017-11-14 08:00] VITALS: BP 112/60
[2017-11-14 12:00] VITALS: BP 123/44
[2017-11-14 16:00] VITALS: BP 124/62
[2017-11-14 21:17] VITALS: BP 105/51
[2017-11-15] VITALS: BP 113/52
[2017-11-15 06:08] LABS: BASO # 0.1 10*3/uL (0.0-0.1); BASO % 0.8 % (0.0-1.0); EOS # 0.1 10*3/uL (0.0-0.4); EOS % 1.3 % (1.0-4.0); HEMATOCRIT 36.2 % (37.0-47.0); HEMOGLOBIN 11.5 g/dl (12.0-16.0); LYMPH # 1.3 10*3/uL (1.3-4.4); LYMPH % 20.9 % (27.0-41.0); MEAN CELL VOLUME 95.8 fl (81.0-99.0); MEAN CORPUSCULAR HGB 30.4 pg (27.0-31.0); MEAN CORPUSCULAR HGB CONC 31.8 g/dl (33.0-37.0); MEAN PLATELET VOLUME 10.9 fl (9.6-12.3); MONO # 0.6 10*3/uL (0.1-1.0); MONO % 8.9 % (3.0-9.0); NEUT # 4.2 10*3/uL (2.3-7.9); NEUT % 67.5 % (47.0-73.0); PLATELET COUNT AUTOMATED 178 10*3/uL (130-400); RED BLOOD COUNT 3.78 10*6/uL (4.10-5.10); RED CELL DISTRI WIDTH 14.2 % (0-14.5); WHITE BLOOD COUNT 6.3 10*3/uL (4.8-10.8)
[2017-11-15 06:35] LABS: INTERNATIONAL NORM RATIO 3.2 (2.0-3.5)
[2017-11-15 06:36] LABS: BUN 12 mg/dl (7-24); CHLORIDE 111 mmol/L (98-107); CREATININE 1.06 mg/dL (0.55-1.02); POTASSIUM 3.9 mmol/L (3.5-5.1); SODIUM 146 mmol/L (136-145)
[2017-11-15 07:05] LABS: HEPATITIS B SURFACE AG Negative (Negative); HEPATITIS C VIRUS ANTIBODY <0.1 s/co (0.0-0.9)
[2017-11-15 08:00] VITALS: BP 127/42; BP 135/61
[2017-11-15 16:00] VITALS: BP 132/56
[2017-11-15] MEDS ORDERED: CYPROHEPTADINE H4 M1 PO (17:30)
== END 2017-11-15 18:40 | disposition other institution (70) | DRG 683 ==
LOC: ED 12:07 → 5E 16:08 → EDHOLD 16:08 → 5E 16:23
PROVIDERS: Emergency Medicine; Internal Medicine
DX: N17.0 Acute kidney failure with tubular necrosis (principal); E44.1 Mild protein-calorie malnutrition; I48.2 Chronic atrial fibrillation; D63.8 Anemia in other chronic diseases classified elsewhere; F33.9 Major depressive disorder, recurrent, unspecified; E03.9 Hypothyroidism, unspecified; E86.0 Dehydration; S40.011A Contusion of right shoulder, initial encounter; E78.2 Mixed hyperlipidemia; K21.0 Gastro-esophageal reflux disease with esophagitis; S80.11XA Contusion of right lower leg, initial encounter; S70.02XA Contusion of left hip, initial encounter; S70.01XA Contusion of right hip, initial encounter; E87.6 Hypokalemia; R62.7 Adult failure to thrive; I12.9 Hypertensive chronic kidney disease with stage 1 through stage 4 chronic kidney disease, or unspecified chronic kidney disease; J44.9 Chronic obstructive pulmonary disease, unspecified; F41.1 Generalized anxiety disorder; N18.1 Chronic kidney disease, stage 1; W19.XXXA Unspecified fall, initial encounter; Y93.89 Activity, other specified; Y92.89 Other specified places as the place of occurrence of the external cause; Y99.8 Other external cause status; Z87.19 Personal history of other diseases of the digestive system; Z79.01 Long term (current) use of anticoagulants; Z88.0 Allergy status to penicillin; Z86.73 Personal history of transient ischemic attack (TIA), and cerebral infarction without residual deficits; Z90.710 Acquired absence of both cervix and uterus; Z68.26 Body mass index [BMI] 26.0-26.9, adult

== ENCOUNTER 2018-02-04 00:18 | Emergency (ER) | payer MEDICARE ==
[~2018-02-04] VITALS: Ht 173.9 cm; Wt 77.6 kg
--- NOTE | ~2018-02-04 | EKG ---
[place], [place] ELECTROCARDIOGRAM REPORT NAME: BIGG RAMIRES UNIT #: [id number] ROOM: DOCTOR: EPIPHANY DRAFT REPORT BIRTHDATE: [birth year] [facility] Test Date: 2018-02-04 Test Time: 01:23:10 Pat Name: BIGG RAMIRES Department: Room: Gender: F Office System Analyst: Alam Lawler : 1945 Requested By: VANESSA ARAGON Order Number: [id number] Reading MD: Dez Camara MD Measurements Intervals [place] Rate: 91 P: AR: QRS: -5 QRSD: 118 T: -21 QT: 393 QTc: 484 Interpretive Statements Atrial fibrillation Incomplete right bundle branch block Compared to ECG 11/12/2017 13:22:29 Incomplete right bundle-branch block now present Aberrant conduction of supraventricular beat(s) no longer present T-wave abnormality no longer present Electronically Signed On 02-06-2018 14:00:19 PDT by Dez Camara MD CM:EKGRPT:ELECTROCARDIOGRAM REPORT [id number] VANESSA HALL DRAFT REPORT VANESSA ARAGON DO
[~2018-02-04 00:18] MED LIST changes: +CEFUROXIME AXE250 MG PO; +COUMADIN1 M1 PO; +COUMADIN3 M1 PO; +CYPROHEPTADINE H4 M1 PO; +Coumadin2 MG PO; +DIGOX125 MCG PO; +K-TAB10 MEQ PO; +LASIX40 MG PO; +LEXAPRO10 MG PO; +LIPITOR10 MG PO; +OMEPRAZOLE20 M2 PO; +PACERONE200 MG PO; +Synthroid,Levo25 MCG PO; +VITAMIN D50000 UNIT PO
[2018-02-04] MEDS ORDERED: POTASSIUM CHLO10 ME5 PO (00:36)
[2018-02-04] MEDS ORDERED: FUROSEMIDE40 MG PO (00:37)
[2018-02-04 01:21] LABS: BASO # 0.1 10*3/uL (0.0-0.1); BASO % 0.9 % (0.0-1.0); EOS # 0.1 10*3/uL (0.0-0.4); EOS % 1.6 % (1.0-4.0); HEMATOCRIT 39.3 % (37.0-47.0); HEMOGLOBIN 12.4 g/dl (12.0-16.0); LYMPH # 1.8 10*3/uL (1.3-4.4); LYMPH % 24.8 % (27.0-41.0); MEAN CELL VOLUME 91.6 fl (81.0-99.0); MEAN CORPUSCULAR HGB 28.9 pg (27.0-31.0); MEAN CORPUSCULAR HGB CONC 31.6 g/dl (33.0-37.0); MONO # 0.7 10*3/uL (0.1-1.0); MONO % 9.3 % (3.0-9.0); NEUT # 4.7 10*3/uL (2.3-7.9); NEUT % 63.1 % (47.0-73.0); PLATELET COUNT AUTOMATED 211 10*3/uL (130-400); RED BLOOD COUNT 4.29 10*6/uL (4.10-5.10); RED CELL DISTRI WIDTH 14.5 % (0-14.5); WHITE BLOOD COUNT 7.4 10*3/uL (4.8-10.8)
[2018-02-04 01:29] LABS: INTERNATIONAL NORM RATIO 2.4 (2.0-3.5)
[2018-02-04 01:40] LABS: ALBUMIN 2.8 gm/dl (3.1-4.5); ALKALINE PHOSPHATASE 77 U/L (45-117); BUN 10 mg/dl (7-24); CHLORIDE 105 mmol/L (98-107); CREATININE 1.25 mg/dL (0.55-1.02); POTASSIUM 3.5 mmol/L (3.5-5.1); SGOT/AST 18 IU/L (3-35); SGPT/ALT 19 U/L (12-78); SODIUM 143 mmol/L (136-145); TOTAL PROTEIN 6.2 gm/dL (6.4-8.2)
[2018-02-04 01:47] LABS: TROPONIN I < 0.015 ng/ml (<0.045)
== END 2018-02-04 03:35 | disposition short-term general hospital (02) ==
LOC: ED 00:18
PROVIDERS: Emergency Medicine
DX: S09.90XA Unspecified injury of head, initial encounter (principal); S19.9XXA Unspecified injury of neck, initial encounter; I48.91 Unspecified atrial fibrillation; I50.21 Acute systolic (congestive) heart failure; Z86.73 Personal history of transient ischemic attack (TIA), and cerebral infarction without residual deficits; Z88.0 Allergy status to penicillin; Z79.899 Other long term (current) drug therapy; Z79.01 Long term (current) use of anticoagulants; Z90.710 Acquired absence of both cervix and uterus; W18.2XXA Fall in (into) shower or empty bathtub, initial encounter; Y93.89 Activity, other specified; Y92.098 Other place in other non-institutional residence as the place of occurrence of the external cause; Y99.8 Other external cause status

== ENCOUNTER 2018-10-11 10:55 | Emergency (ER) | payer MEDICARE ==
[~2018-10-11] VITALS: Wt 66.2 kg
--- NOTE | ~2018-10-11 | EKG ---
[place], [place] ELECTROCARDIOGRAM REPORT NAME: BIGG RAMIRES UNIT #: [id number] ROOM: DOCTOR: EPIPHANY DRAFT REPORT BIRTHDATE: [birth year] 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
[~2018-10-11 10:55] MED LIST changes: +FUROSEMIDE40 MG PO; +POTASSIUM CHLO10 ME5 PO
[2018-10-11 11:39] LABS: BASO # 0.1 10*3/uL (0.0-0.1); BASO % 0.6 % (0.0-1.0); EOS # 0.1 10*3/uL (0.0-0.4); EOS % 0.9 % (1.0-4.0); HEMATOCRIT 43.3 % (37.0-47.0); HEMOGLOBIN 13.1 g/dl (12.0-16.0); LYMPH # 1.3 10*3/uL (1.3-4.4); MEAN CELL VOLUME 88.4 fl (81.0-99.0); MEAN CORPUSCULAR HGB 26.7 pg (27.0-31.0); MEAN CORPUSCULAR HGB CONC 30.3 g/dl (33.0-37.0); MEAN PLATELET VOLUME 10.2 fl (9.6-12.3); MONO # 0.8 10*3/uL (0.1-1.0); MONO % 7.8 % (3.0-9.0); NEUT % 77.4 % (47.0-73.0); PLATELET COUNT AUTOMATED 258 10*3/uL (130-400); RED CELL DISTRI WIDTH 15.9 % (0-14.5); WHITE BLOOD COUNT 10.3 10*3/uL (4.8-10.8)
[2018-10-11 11:50] LABS: ACT PARTIAL THROMBO TIME 29.4 SECONDS (20.0-32.1); INTERNATIONAL NORM RATIO 1.9 (2.0-3.5)
[2018-10-11 11:54] LABS: ALKALINE PHOSPHATASE 92 U/L (45-117); BUN 15 mg/dl (7-24); CHLORIDE 106 mmol/L (98-107); CREATININE 1.38 mg/dL (0.55-1.02); LIPASE 125 U/L (73-393); POTASSIUM 4.4 mmol/L (3.5-5.1); SGOT/AST 19 IU/L (3-35); SGPT/ALT 35 U/L (12-78); SODIUM 143 mmol/L (136-145); TOTAL PROTEIN 6.7 gm/dL (6.4-8.2)
[2018-10-11 11:59] LABS: TROPONIN I < 0.015 ng/ml (<0.045)
[2018-10-11 12:25] LABS: BILIRUBIN NEGATIVE (NEGATIVE); BLOOD NEGATIVE (NEGATIVE); CLARITY SL CLOUDY (CLEAR); COLOR YELLOW (YELLOW); GLUCOSE NEGATIVE (NEGATIVE); KETONE NEGATIVE (NEGATIVE); LEUKO ESTERASE 2+ (NEGATIVE); NITRITE NEGATIVE (NEGATIVE); PH 6.5 (5.0-9.0); SPECIFIC GRAVITY 1.015 (1.005-1.030); UROBILINOGEN 0.2 E.U./dl (0.2-1.0)
[2018-10-11 12:43] LABS: WBC 16-20 wbc/hpf (0-5)
[2018-10-11 12:44] LABS: BACTERIA 3+
== END 2018-10-11 15:55 | disposition home or self-care (01) ==
LOC: ED 10:55
PROVIDERS: Nurse Practitioner Family
DX: S93.402A Sprain of unspecified ligament of left ankle, initial encounter (principal); R42 Dizziness and giddiness; E07.9 Disorder of thyroid, unspecified; I48.91 Unspecified atrial fibrillation; I10 Essential (primary) hypertension; E11.9 Type 2 diabetes mellitus without complications; Z88.0 Allergy status to penicillin; Z79.899 Other long term (current) drug therapy; Z79.01 Long term (current) use of anticoagulants; Z90.710 Acquired absence of both cervix and uterus; X50.1XXA Overexertion from prolonged static or awkward postures, initial encounter; Y93.01 Activity, walking, marching and hiking; Y92.098 Other place in other non-institutional residence as the place of occurrence of the external cause; Y99.8 Other external cause status

== ENCOUNTER → 2019-01-08 | Outpatient (CLI) | payer MEDICARE ==
[2019-01-08 12:21] LABS: BASO # 0.1 10*3/uL (0.0-0.1); BASO % 0.7 % (0.0-1.0); EOS # 0.1 10*3/uL (0.0-0.4); HEMATOCRIT 41.8 % (37.0-47.0); HEMOGLOBIN 12.9 g/dl (12.0-16.0); LYMPH # 1.6 10*3/uL (1.3-4.4); LYMPH % 16.3 % (27.0-41.0); MEAN CELL VOLUME 87.1 fl (81.0-99.0); MEAN CORPUSCULAR HGB 26.9 pg (27.0-31.0); MEAN CORPUSCULAR HGB CONC 30.9 g/dl (33.0-37.0); MEAN PLATELET VOLUME 10.4 fl (9.6-12.3); MONO # 0.6 10*3/uL (0.1-1.0); MONO % 5.7 % (3.0-9.0); NEUT # 7.5 10*3/uL (2.3-7.9); NEUT % 75.9 % (47.0-73.0); PLATELET COUNT AUTOMATED 278 10*3/uL (130-400); RED CELL DISTRI WIDTH 16.3 % (0-14.5); WHITE BLOOD COUNT 9.8 10*3/uL (4.8-10.8)
[2019-01-08 12:39] LABS: CREATININE 1.18 mg/dL (0.55-1.02); FREE T4 1.48 ng/dl (0.76-1.46); POTASSIUM 4.1 mmol/L (3.5-5.1); TOTAL PROTEIN 6.6 gm/dL (6.4-8.2)
[2019-01-08 12:43] LABS: THYROID STIM HORMONE (HS) 2.94 uIU/ml (0.358-4.75)
[2019-01-08 13:28] LABS: VITAMIN D, 25-HYDROXY 92.3 ng/mL (30-100)
== END | disposition home or self-care (01) ==
LOC: LAB 11:56
PROVIDERS: Internal Medicine
DX: I48.2 Chronic atrial fibrillation (principal); E55.9 Vitamin D deficiency, unspecified; D52.9 Folate deficiency anemia, unspecified; D51.9 Vitamin B12 deficiency anemia, unspecified; I10 Essential (primary) hypertension; E78.2 Mixed hyperlipidemia

== ENCOUNTER 2019-02-13 22:06 | Emergency (ER) | payer MEDICARE ==
[~2019-02-13] VITALS: Ht 167.6 cm; Wt 72.6 kg
[~2019-02-13 22:06] MED LIST changes: +TRAMADOL HCL50 MG PO
== END 2019-02-14 03:04 | disposition home or self-care (01) ==
LOC: ED 22:06
DX: S42.391A Other fracture of shaft of right humerus, initial encounter for closed fracture (principal); I48.91 Unspecified atrial fibrillation; I11.0 Hypertensive heart disease with heart failure; I50.21 Acute systolic (congestive) heart failure; E11.9 Type 2 diabetes mellitus without complications; F17.200 Nicotine dependence, unspecified, uncomplicated; Z88.0 Allergy status to penicillin; Z79.899 Other long term (current) drug therapy; Z79.01 Long term (current) use of anticoagulants; Z86.73 Personal history of transient ischemic attack (TIA), and cerebral infarction without residual deficits; W18.09XA Striking against other object with subsequent fall, initial encounter; Y93.89 Activity, other specified; Y92.008 Other place in unspecified non-institutional (private) residence as the place of occurrence of the external cause; Y99.8 Other external cause status

== ENCOUNTER 2019-02-23 21:41 | Inpatient (IN) | payer MEDICARE ==
[~2019-02-23] VITALS: Ht 172.7 cm; Wt 67.8 kg
[2019-02-23 21:52] VITALS: BP 134/61
--- NOTE | 2019-02-23 21:52 | NUR ---
PT TO TREATMENT ROOM, PLACED IN GOWN, PLACED ON HEAD OF ADVERTISING, NIBP AND CONTINUOUS PULSE OX, ASSESSMENT COMPLETE, CALL PEREZ IN REACH
--- NOTE | 2019-02-23 21:55 | NUR ---
PUPILS 3+ REACTIVE BILAT, +PMS , RT SHOULDER NOTED WITH SLING LEAD WELDER FROM PREVIOUS
--- NOTE | 2019-02-23 22:02 | NUR ---
MD IN TO EVALUATE PT
--- NOTE | 2019-02-23 22:12 | NUR ---
ECCHYMOSIS NOTED TO RT ARM AND BILAT THIGHS/HIP, LACERATION TO LEFT HAND, BLEEDING CONTROLLED, BULKY DRESSING APPLIED AFTER CLEANSING WITH STERILE WATER, PT TOLERATED WELL, +PMS NOTED
--- NOTE | 2019-02-23 22:19 | NUR ---
CT COMPLETE ORDERED
[2019-02-23 22:37] VITALS: BP 131/54
--- NOTE | 2019-02-23 22:45 | NUR ---
CERVICAL COLLAR CLEARED BY DR. MALDONADO, PT TOLERATED WELL, RINGS REMOVED BY FAMILY FROM LEFT HAND
--- NOTE | 2019-02-23 23:00 | NUR ---
STRAIGHT CATH UA OBTAINED USING STERILE TECHNIQUE RETURN OF 100 CC CLEAR, YELLOW URINE NOTED, SPECIMEN SENT TO LAB, PT TOLERATED WELL
[2019-02-23 23:06] LABS: BILIRUBIN NEGATIVE (NEGATIVE); BLOOD NEGATIVE (NEGATIVE); CLARITY CLEAR (CLEAR); COLOR YELLOW (YELLOW); GLUCOSE NEGATIVE (NEGATIVE); KETONE NEGATIVE (NEGATIVE); LEUKO ESTERASE NEGATIVE (NEGATIVE); NITRITE NEGATIVE (NEGATIVE); UROBILINOGEN 0.2 E.U./dl (0.2-1.0)
--- NOTE | 2019-02-23 23:06 | NUR ---
CREDIT CHARGE AUTHORIZER AT BEDSIDE TO DRAW LAB WORK ORDERED, XRAY AT BEDSIDE TO COMPLETE XRAY ORDERED
[2019-02-23 23:11] VITALS: BP 125/53
[2019-02-23 23:16] LABS: BASO # 0.1 10*3/uL (0.0-0.1); BASO % 0.7 % (0.0-1.0); EOS # 0.2 10*3/uL (0.0-0.4); EOS % 1.8 % (1.0-4.0); HEMOGLOBIN 10.6 g/dl (12.0-16.0); LYMPH # 1.9 10*3/uL (1.3-4.4); MEAN CELL VOLUME 86.8 fl (81.0-99.0); MEAN CORPUSCULAR HGB 26.3 pg (27.0-31.0); MEAN CORPUSCULAR HGB CONC 30.3 g/dl (33.0-37.0); MEAN PLATELET VOLUME 10.6 fl (9.6-12.3); MONO # 0.7 10*3/uL (0.1-1.0); MONO % 8.3 % (3.0-9.0); NEUT # 6.1 10*3/uL (2.3-7.9); NEUT % 67.9 % (47.0-73.0); PLATELET COUNT AUTOMATED 267 10*3/uL (130-400); RED BLOOD COUNT 4.03 10*6/uL (4.10-5.10); RED CELL DISTRI WIDTH 16.8 % (0-14.5); WHITE BLOOD COUNT 8.9 10*3/uL (4.8-10.8)
[2019-02-23 23:20] LABS: BACTERIA 3+
[2019-02-23 23:26] LABS: INTERNATIONAL NORM RATIO 1.8 (2.0-3.5)
[2019-02-23 23:34] LABS: ALBUMIN 2.6 gm/dl (3.1-4.5); ALKALINE PHOSPHATASE 80 U/L (45-117); BUN 16 mg/dl (7-24); CHLORIDE 104 mmol/L (98-107); CREATININE 0.95 mg/dL (0.55-1.02); LIPASE 112 U/L (73-393); POTASSIUM 3.3 mmol/L (3.5-5.1); SGOT/AST 22 IU/L (3-35); SGPT/ALT 34 U/L (12-78); SODIUM 140 mmol/L (136-145); TOTAL PROTEIN 5.7 gm/dL (6.4-8.2)
[2019-02-23 23:36] LABS: TROPONIN I < 0.015 ng/ml (<0.045)
[2019-02-24] VITALS (7 sets, daily range): BP systolic 104–120; BP diastolic 50–76
--- NOTE | 2019-02-24 00:07 | NUR ---
PT RESTING QUIETLY, WITH NO COMPLAINTS AT PRESENT, PAIN IMPROVED
--- NOTE | 2019-02-24 00:24 | NUR ---
IN TO SUTURE LEFT HAND LACERATION
--- NOTE | 2019-02-24 01:00 | NUR ---
DR. MALDONADO IN AT BEDSIDE, TO HELP RESIDENT SUTURE
--- NOTE | 2019-02-24 01:25 | NUR ---
PT ADMITTED TO 4 TH FLOOR WITH RN IN NO ACUTE DISTRESS, A FIB ON MONITOR, RESP EASY ON 2L/NS, SALINE LOCK PATENT WITH NO REDNESS OR SWELLING, SHERRILL BANDAGES TO LEFT HAND AND FA INTACT
--- NOTE | 2019-02-24 01:38 | NUR ---
A 73, admitted to , under the services of Dr. COLIN SELF,FANTA Vergara with a diagnosis of FALL AT HOME, IMPAIRED MOBILITY AND ADLS. Chief complaint is FALL. Patient arrived via bed from ER. Monitor applied. Initial assessment completed. Vital signs taken and recorded. DR. COLIN SELF,FANTA Vergara notified of admission to the unit. Orders received. See assessment for past medical history, medications and allergies. Patient and/or family oriented to unit. [address] visitation policy reviewed. Clothing/patient valuable form completed. PT VACCINATED THIS FLU SEASON. WOUNDS TO LEFT THUMB AND LEFT ARM ON ADMISSION. SEE WOUND DOCUMENTATION. AFIA SESAY
--- NOTE | 2019-02-24 01:38 | NUR ---
NOT ABLE TO VISUALIZE PATIENT'S LEFT THUMB AT THIS TIME. REPORT FROM ER STATED THE PATIENT HAD SUTURES PLACED AND THAT THEY HAD A HARD TIME GETTING IT TO STOP BLEEDING. GAUZE DRESSING STICKING TO WOUND. PATIENT REQUESTED I WAIT FOR THE DOCTOR TO TAKE THE DRESSING OFF SO THAT IT DID NOT START TO BLEED AGAIN. WOUNDS ON LEFT FOREARM MEASURED AND DOCUMENTED IN WOUND CARE SCREEN. PATIENT ALSO HAS BRUISING TO RIGHT SHOULDER/ARM DUE TO HUMERUS FRACTURE FROM PREVIOUS FALL. RIGHT ARM IN SLING. BRUISING ALSO NOTED TO LEFT HIP AREA AND SMALL BRUISES THROUGHOUT LEGS.
--- NOTE | 2019-02-24 02:10 | NUR ---
NOTIFIED DR SHAW OF COMPLETED MED REC. READ MEDS TO HIM. HE GAVE ORDERS TO CONTINUE TRAMADOL AND HE STATED HE WOULD CONTINUE THE REST OF HER MEDS TOMORROW. ORDERS ALSO RECIEVED TO PUT IN FOR PHYSICAL THERAPY AND DIET OF NO CONCENTRATED SWEETS.
--- NOTE | 2019-02-24 07:45 | NUR ---
Patient resting quietly with no c/o discomfort. Respirations easy and regular. Vital signs stable. No overt distress. KAILA MCDANIELS
--- NOTE | 2019-02-24 08:42 | NUR ---
24 HR chart check completed.
--- NOTE | 2019-02-24 09:00 | NUR ---
PT REFUSING L THUMB MEASUREMENTS D/T PAIN/BLEEDING ON COUMADIN.
--- NOTE | 2019-02-24 11:01 | NUR ---
MEDICATED WITH PO ULTRAM ORDERED PER PT REQUEST FOR C/O RIGHT SHOULDER PAIN.
--- NOTE | 2019-02-24 12:30 | NUR ---
MEDICATION EFFECTIVE FOR PAIN.
--- NOTE | 2019-02-24 18:27 | NUR ---
MEDICATED WITH IV DILAUDID ORDERED PER PT REQUEST FOR C/O PAIN TO ENTIRE BODY RATED 10/10.
--- NOTE | 2019-02-24 19:00 | NUR ---
UNABLE TO CALL CALLIE CONSULT UNTIL TUESDAY D/T LACK OF COVERAGE. PM RN NOTIFIED TO PASS ALONG TO CALL CONSULT ON TUESDAY FOR DISLOCATED SHOULDER.
--- NOTE | 2019-02-24 19:06 | NUR ---
MEDICATED WITH PO TYLENOL ORDERED PER PT REQUEST FOR C/O HEADACHE.
--- NOTE | 2019-02-24 19:41 | NUR ---
PATIENT STATED SHE WOULD LIKE TO BE STARTED BACK ON LASIX 40MG DAILY. TALKED WITH DR SHAW ABOUT IT AND HE STATED HE WILL CONTINUE TO HOLD IT BECAUSE SHE IS DEHYDRATED. DR SHAW ALSO STATED HE WANTS TO CONTINUE TO STRAIGHT CATH THE PATIENT UNTIL SHE IS ABLE TO URINATE ON HER OWN.
--- NOTE | 2019-02-24 22:25 | NUR ---
TRAMADOL GIVEN PER PATIENT REQUEST FOR COMPLAINTS OF PAIN RATED 7/10. WILL ASSESS EFFECTIVENESS.
--- NOTE | 2019-02-24 23:20 | NUR ---
TRAMADOL SLIGHTLY EFFECTIVE PER PATIENT. PATIENT STATES WHEN SHE IS NOT MOVING HER PAIN IS AT A 4/10. WITH MOVEMENT HER PAIN IS AT A 6/10. REPOSITIONED WITH WEDGE UNDER RIGHT SIDE. WILL CONTINUE TO MONITOR.
--- NOTE | 2019-02-24 23:46 | NUR ---
WHEN CHECKING ON PATIENT I NOTICED HER GAUZE DRESSING TO HER LEFT FOREARM HAD SLID DOWN TO HER WRIST. HER WOUND WAS EXPOSED. THE SKIN WAS PEELING AROUND THE OPEN WOUND AND IT HAD SCANT DRAINAGE. DR CORRIGANAIN AWARE OF THE WOUND AND NO WOUND ORDERS WERE GIVEN. I APPLIED AN OPTIFOAM TO THE WOUND FOR COVERAGE. PATIENT IS STILL REFUSING TO LET STAFF UNDRESS HER GUAZE DRESSING TO HER LEFT THUMB AT THIS TIME. SHE STATED SHE WANTS THE DOCTOR TO LOOK AT IT FIRST BECAUSE SHE IS WORRIED ABOUT BLEEDING. PREVIOUSLY STATED, ER STATED SHE HAD GOTTEN SUTURES PLACED TO HER LEFT THUMB BEFORE COMING UP TO THE FLOOR. RATIONALE GIVEN FOR THE NEED TO MEASURE THE WOUND. PATIENT STILL REFUSING. WILL CONTINUE TO MONITOR BOTH DRESSINGS.
[2019-02-25] VITALS: BP 122/53
--- NOTE | 2019-02-25 04:30 | NUR ---
PATIENT'S GAUZE DRESSING WAS COMING OFF. I TOOK THE DRESSING OFF AND THE 2X2 GAUZE WAS STICKING TO THE PATIENT'S LEFT THUMB. PATIENT DID NOT WANT ME TO REMOVE THE GAUZE. LEFT THUMB WRAPPED BACK UP.
--- NOTE | 2019-02-25 04:54 | NUR ---
STRAIGHT CATHED. 500 ML OUT.
[2019-02-25 06:25] LABS: BASO % 0.6 % (0.0-1.0); EOS # 0.1 10*3/uL (0.0-0.4); EOS % 1.5 % (1.0-4.0); HEMATOCRIT 34.5 % (37.0-47.0); HEMOGLOBIN 10.2 g/dl (12.0-16.0); LYMPH # 1.1 10*3/uL (1.3-4.4); LYMPH % 16.1 % (27.0-41.0); MEAN CORPUSCULAR HGB CONC 29.6 g/dl (33.0-37.0); MEAN PLATELET VOLUME 10.9 fl (9.6-12.3); MONO # 0.6 10*3/uL (0.1-1.0); MONO % 8.9 % (3.0-9.0); NEUT # 5.2 10*3/uL (2.3-7.9); NEUT % 72.5 % (47.0-73.0); PLATELET COUNT AUTOMATED 218 10*3/uL (130-400); RED BLOOD COUNT 3.92 10*6/uL (4.10-5.10); RED CELL DISTRI WIDTH 16.7 % (0-14.5); WHITE BLOOD COUNT 7.1 10*3/uL (4.8-10.8)
[2019-02-25 06:52] LABS: BUN 12 mg/dl (7-24); CHLORIDE 105 mmol/L (98-107); POTASSIUM 3.9 mmol/L (3.5-5.1); SODIUM 142 mmol/L (136-145)
[2019-02-25 06:55] LABS: CREATININE 0.78 mg/dL (0.55-1.02)
[2019-02-25 07:01] LABS: INTERNATIONAL NORM RATIO 1.6 (2.0-3.5)
[2019-02-25 08:00] VITALS: BP 118/63
--- NOTE | 2019-02-25 08:39 | NUR ---
PRN ULTRAM GIVEN FOR PT COMPLAINTS OF PAIN IN THE RIGHT SHOULDER. RATES IT 12/26. PATIENT TEARFUL. CALL LIGHT WITHIN REACH, WILL MONITOR
--- NOTE | 2019-02-25 10:24 | NUR ---
SPOKE WITH DR. CORMIER AT THIS TIME. STATED TO MAKE DILAUDID Q6H SINCE IT WAS ONLY ON FOR Q6H PRN. ALSO TOLD HIM THAT PATIENT IS EXTREMELY TEARFUL AND DEPRESSED. OBTAINED A DR. SPENCE CONSULT
--- NOTE | 2019-02-25 11:09 | NUR ---
SPOKE WITH DR. SHAW AND NOTIFIE DHIM THE PATIENTS PRELIMINARY URINE CULTURE IS COMING BACK HEAVY GNB. ORDER RECIEVD FOR 1G ROCEPHIN DAILY
--- NOTE | 2019-02-25 11:11 | NUR ---
PATIENT UP TO CHAIR AT THIS TIME. ASKED PATIENT IF SHE WOULD LIKE ANY PAIN MEDICATION AND SHE STATED THAT SHE WOULD LIKE TO WAIT A LITTLE BIT AND SEE IF SHE FEELS BETTER
--- NOTE | 2019-02-25 11:12 | NUR ---
JANENE MADE AWARE OF DR. JORDY JUDD
[2019-02-25 12:00] VITALS: BP 94/52
--- NOTE | 2019-02-25 13:36 | NUR ---
PRN ULTRAM GIVEN FOR PT COMPLAINTS OF RIGHT SHOULDER PAIN RATING IT 9/10. CALL LIGHT WITHIN REACH, WILL MONITOR
--- NOTE | 2019-02-25 14:30 | NUR ---
PATIENT WALKED TO BATHROOM WITH ASSIST. URINATED WITHOUT PROBLEM OR BURNING. 100ML MADE IT INTO THE HAT, THE REST WAS MISSED.
--- NOTE | 2019-02-25 14:48 | NUR ---
SPOKE WITH DR. SHAW. STATED THAT PATIENTS BLOOD PRESSURES HAVE BEEN RUNNING LOW. CURRENTLY 90'S/50'S. ASKED IF IT WAS OK TO ADMINISTERED DILAUDID. HE STATED THAT IF SHE DIDN'T DROP IN BLOOD PRESSURE THE LAST TIME SHE RECIEVED IT THAT SHE COULD HAVE IT.
--- NOTE | 2019-02-25 15:02 | NUR ---
PRN DILAUDID GIVEN AT THIS TIME FOR CONTINUING COMPLAINTS OF PAIN IN THE RIGHT SHOULDER. ULTRAM INEFFECTIVE. CALL LIGHT WITHIN REACH, WILL MONITOR
[2019-02-25 16:00] VITALS: BP 113/58
--- NOTE | 2019-02-25 16:37 | NUR ---
DILAUDID NOT VERY EFFECTIVE FOR PAIN PER PATIENT. TYLENOL AVAILABLE AND GIVEN FOR PAIN. WILL MONITOR
[2019-02-25 20:00] VITALS: BP 123/59
--- NOTE | 2019-02-25 21:13 | NUR ---
ULTRAM GIVEN PER PATIENT REQUEST FOR SHOULDER/ARM PAIN RATED 8/10. WILL ASSESS EFFECTIVENESS.
--- NOTE | 2019-02-25 22:06 | NUR ---
ULTRAM EFFECTIVE PER PATIENT. NO SIGNS OR SYMPTOMS OF DISTRESS EXCEPT WITH MOVEMENT. GRUNTING AND GRIMACING WITH MOVEMENT OF ANY KIND. PATIENT REPOSITIONED IN BED AND RIGHT ARM/SHOULDER PROPPED UP WITH A PILLOW PER PATIENT REQUEST. WILL CONTINUE TO MONITOR.
--- NOTE | 2019-02-25 22:22 | NUR ---
24 HR chart check completed.
[2019-02-26] VITALS: BP 124/52
--- NOTE | 2019-02-26 00:28 | NUR ---
Patient resting quietly with no c/o discomfort. Respirations easy and regular. Vital signs stable. No overt distress. CALL LIGHT WITHIN REACH. JUSTINA BARR
--- NOTE | 2019-02-26 04:47 | NUR ---
PATIENT REQUESTED DILAUDID FOR PAIN THEN BEFORE ADMINISTERING DILAUDID SHE STATED SHE DID NOT WANT IT BECAUSE IT MADE HER "DIZZY" AND "FEEL FUNNY" WHEN SHE HAD IT THE DAY BEFORE. WASTED DILAUDID WITH SECOND RN.
--- NOTE | 2019-02-26 04:48 | NUR ---
TYLENOL GIVEN PER PATIENT REQUEST FOR COMPLAINTS OF PAIN RATED 6/10 WITH MOVEMENT. WILL ASSESS EFFECTIVENESS.
[2019-02-26 08:00] VITALS: BP 126/66
[2019-02-26 08:08] LABS: INTERNATIONAL NORM RATIO 1.8 (2.0-3.5)
--- NOTE | 2019-02-26 08:21 | NUR ---
TERELL IN DR PETERS OFFICE MADE AWARE OF NEW CONSULT ORDER.
--- NOTE | 2019-02-26 09:15 | NUR ---
BIGG RAMIRES [id number] Please refer to the physician's history and physical for past medical history, comorbid conditions, and allergies. Diagnosis: FALL AT HOME IMPAIRED MOBILITY AND ADLS Sebastián Score: 15,AT RISK WOUND DESCRIPTIONS: Wound Number: 1 Location of the wound: LEFT FOREARM PROXIMAL Type of wound: SKIN TEAR Thickness: Partial Size: 2.1cm X 2.6cm X 0.1cm Tunneling: NONE Undermining: NONE Sinus Tract: NONE Presence of Exudate: Serous Amount: Light Color: Red Odor: None Periwound Skin Appearance: Erythema Wound edges: APPROXIMATED Pain (associated with wound): DENIED AT TIME OF ASSESSMENT How does patient state this happened? PATIENT STATED THESE HAPPENED WHEN SHE FELL ON TUESDAY. WOUND #2 LEFT DISTAL FOREARM INTACT SCABS. NO DRAINAGE NOTED AT TIME OF ASSESSMENT. Wound Number: 3 Location of the wound: LEFT THUMB Type of wound: TRAUMATIC Thickness: Full Size: 5cm X 0.4cm X 0.1cm Tunneling: NONE Undermining: NONE Sinus Tract: NONE Presence of Exudate: Serous sanguineous Amount: Light Color: Red Odor: None Periwound Skin Appearance: Erythema Wound edges: APPROXIMATED Pain (associated with wound): TENDER TO TOUCH How does patient state this happened? PATIENT STATES THIS HAPPENED WHEN SHE FELL ON TUESDAY. If wound is on legs/feet or hands, capillary refill time, pulses, color temp, sensation: CAP REFILL < 3 SECONDS. Surface the patient is resting on: Isoflex SKIN PREVENTION RECOMMENDATION: 1. Pressure redistribution support surface as appropriate 2. Elevate heels 3. Remove boots/TEDS every shift and reapply 4. Head of bed 30 degrees as tolerated 5. Assess nutrition and hydration 6. Manage moisture 7. Avoid the use of containment devices while in bed 8. Use absorptive products on surfaces limit layers of linens on bed 9. Turn and reposition every 1-2 hours in bed and every 1 hour in chair as tolerated 10. Weight shifts every 15 minutes while up in chair 11. Offloading with pillows or device to keep heels elevated off bed 12. Monitor skin at least every shift 13. Inspect under medical devices twice a day WOUND TREATMENT RECOMMENDATIONS: SKIN TEAR GUIDELINES TO LEFT PROXIMAL FOREARM: CLEANSE WITH NSS APPLY SUREPREP AROUND THE WOUND ALLOW TO DRY APPLY HYDROGEL AND COVER WITH OPTIFOAM GENTLE. DRESSING CHANGE TO LEFT THUMB : CLEANSE WITH NSS COVER WITH ADAPTIC AND ROLLED GAUZE. CHANGE DAILY AND PRN SOILING. LEFT DISTAL FOREARM LEAVE OPEN TO AIR.
--- NOTE | 2019-02-26 09:49 | NUR ---
PT MEDICATED WITH DILAUDID 0.5MG IV FOR C/O SEVERE SHOULDER PAIN.
--- NOTE | 2019-02-26 10:17 | NUR ---
PT STATED DILAUDID MADE HER FEEL NAUSEOUS. MEDICATED WITH ZOFRAN 8MG IV ORDERED BY DR SHAW.
--- NOTE | 2019-02-26 10:20 | NUR ---
Nursing screen received and chart reviewed. Recommend OT d/t patients decline in ADLs and right shoulder injury. Thank you. Edgardo Medina OTr/L
--- NOTE | 2019-02-26 10:30 | NUR ---
Class C Driver in to talk to patient. Patient states lives at home alone with her friends checking in on her. There are basement steps in the home. There is a wheelchair ramp. Physician: Dr. Nicole Blair Pharmacy: [facility]: she would like [facility] on discharge Patient's level of ADLs: MINIMAL ASSIST Patient has working utilities: yes DME: walker Follow-up physician's appointment after d/c: she prefers to make her own follow up appt after discharge Does patient want to access PORTAL?: no Discharge plan discussed with patient. She lives at home alone with her friends checking in on her. Her fiance about a year ago and her family lives in [place] and [place]. She is independent in her ADLs and ambulates with a walker. Her right arm is in a sling. Discussed short term SNF and she refuses. Discussed home health care services and she is agreeable. When provided with a list of agencies she chose [facility]. When medically stable she will be discharged to home with [facility] services. She states her friend, Zuleyma, will transport on discharge. BURTON CARR
--- NOTE | 2019-02-26 10:50 | NUR ---
Occupational Therapy evaluation completed on 4 with full eval to follow. Precautions include fall risk;bed alarm, RUE sling, NWB UE,high complexity level 56935 via chart review, testing and evaluation. Recommend OT per POC and SNF to enable safe return home alone. Thank you. Edgardo Medina OTR/L
[2019-02-26 12:00] VITALS: BP 104/34
--- NOTE | 2019-02-26 13:10 | NUR ---
PHYSICAL THERAPY Coby completed full report to follow, Pt is a moderate level of [id number]. PT to work on transfers, amb, strengthening. Recommend SNF at discharge. Thank you Nuha Wagoner PT
--- NOTE | 2019-02-26 13:23 | NUR ---
PT SITTTING UP IN BED EATING LUNCH AT THIS TIME. STATED DILAUDID AND ZOFRAN EFFECTIVE IN EASING HER PAIN AND NAUSEA.
--- NOTE | 2019-02-26 13:36 | NUR ---
OT NOTE Attempted to see pt this P.M. for OT session and upon arrival pt was supine in bed. Pt visiting with family and requesting to rest at this time. Will check back at a later time/date and continue with POC as able. DREA Bernardo/Anup
--- NOTE | 2019-02-26 13:38 | NUR ---
Patient requesting a referral to [facility]. contacted facility and faxed referral. Requires a 3 night stay, waiting on review/acceptance.
--- NOTE | 2019-02-26 14:20 | NUR ---
Called to room to speak to patient and daughter about short term SNF. Patient is agreeable to short term SNF. When provided with a list of facilities she chose [facility]. Explained she will need a 3 night hospital stay and medically stable before she will be able to be discharged. She and her daughter verbalized an understanding. senior buyer planner notified.
[2019-02-26 16:00] VITALS: BP 132/71
--- NOTE | 2019-02-26 18:35 | NUR ---
PHYSICAL THERAPY Nursing screen received and chart reviewed. Physical therapy order received and completed 02/26/19. Second PT order received for Right humerus fx. Maintain Right UE non-weightbearing status. Continue to recommend SNF at discharge. Discharge Duplicate PT order. Thank you. Debbie Nelson,PT,DPT
[2019-02-26 20:00] VITALS: BP 113/58
--- NOTE | 2019-02-26 20:17 | NUR ---
24 HR chart check completed.
--- NOTE | 2019-02-26 21:00 | NUR ---
SLEEPING, AWAKENS EASILY. RESPIRATIONS EASY. LUNGS DIMINISHED, CLEAR. PULSE OX 93% RA. SLING/IMMOBILIZER IN PLACE TO RIGHT ARM/SHOULDER. CALL LIGHT WITHIN REACH. BED ALARM MAINTAINED FOR SAFETY
--- NOTE | 2019-02-26 22:31 | NUR ---
MEDICATED WITH ULTRAM PER PRN ORDER FOR C/O PAIN TO RIGHT ARM RATING A 7. CALL LIGHT WITHIN REACH. WILL MONITOR FOR EFFECTIVENESS
[2019-02-27] VITALS: BP 134/56
--- NOTE | 2019-02-27 | NUR ---
EARLIER ULTRAM APPEARS EFFECTIVE, SLEEPING. RESPIRATIONS EASY. VSS. CALL LIGHT WITHIN REACH. BED ALARM MAINTAINED FOR SAFETY
[2019-02-27 02:46] VITALS: BP 118/56
--- NOTE | 2019-02-27 02:46 | NUR ---
AWAKENS WITH VAGUE COMPLAINTS, "I'M JUST NOT FEELING RIGHT." BSG CHECKED 100. VSS. HR 103 PER MOLD SWABBER. BP 118/56. MEDICATED WITH ZOFRAN IV PER PRN ORDER. WILL MONITOR
--- NOTE | 2019-02-27 03:30 | NUR ---
MEDS APPEAR EFFECTIVE. RESTING WITH EYES CLOSED. RESPIRATIONS EASY.
--- NOTE | 2019-02-27 04:28 | NUR ---
Patient stated she will follow up with Dr. Ayesha Blair upon discharge
--- NOTE | 2019-02-27 04:45 | NUR ---
PATIENT AWAKE, CONFUSED. SETTING OFF BED ALARM. PATIENT RUMMAGING AROUND IN BED, STATES LOOKING FOR CELL PHONE. NO CELL PHONE ON BELONGINGS LIST. ATTEMPTED TO EXPLAIN THIS TO PATIENT WHO ONLY BECOMES MORE AGITATED. PATIENT ARGUING WITH ROOM-MATE AND STAFF. STATES "I'M NOT LOSING MY MIND." "WHY ARE YOU IN MY HOME?" 1:1 PROVIDED TO REORIENT PATIENT WITH LITTLE TO NO SUCCESS. PLACED IN JENNIFER-CHAIR AND BROUGHT TO NURSES STATION. WILL MONITOR
--- NOTE | 2019-02-27 06:00 | NUR ---
REMAINS AT NURSES STATION. C/O PAIN TO RIGHT SHOULDER BUT DECLINES PAIN MEDS STATING "I'M TRYING TO CLEAR MY HEAD."
[2019-02-27 06:25] LABS: INTERNATIONAL NORM RATIO 1.9 (2.0-3.5)
--- NOTE | 2019-02-27 07:33 | NUR ---
patient has been accepted to [facility], 3 night stay completed. Patient can go when medically stable for discharge.
--- NOTE | 2019-02-27 07:55 | NUR ---
PHYSICAL THERAPY Patient seen this am 1;1 for therapy visit and was sitting semi reclined in Belinda chair near nursing station upon therapist arrival. Patient identified by name / and presented with R arm sling, NWB on R UE. Patient c/o's mild bouts of dizziness during standing activities and educated on visual fixation technique prior to performing sit to stand transfer at rail. Patient completed intial sit to stand, MOD A, tolerating static stand < 1 minute. Patient needed seated rest due to increased fatigue and was then able to transfer MIN/MANAGER HARBOR, ambulating 10'x 2, MANAGER HARBOR/MIN with single handrail support. Patient was very cautious during all standing activities for fear of falling and reported only mild c/o dizziness. Patient returned to [facility] chair in her room beside her bed with lap tray, body alarm, telephone and call light awaiting breakfast. Will continue per POC as tolerated, total treatment time 16 minutes. Jamar Cohen, GREY GOODS TESTER
[2019-02-27 08:00] VITALS: BP 130/66
--- NOTE | 2019-02-27 08:00 | NUR ---
OT NOTE Pt was seen this A.M. 1:1 for 15 minute OT session. Upon arrival pt was sitting upright in the celeste chair at the nurses station. Pt identified by name and and had complaints of R shoulder pain that she was unable to rate on 0-10 pain scale. Pt presented to therapy with R sling in place which remained in place throughout the entire session. Pt completed sit to stand from chair level with modA and use of hand rail for UE support. Challenged pt's static standing tolerance needed for increased I in self care tasks and functional transfers. Pt was able to tolerate aprox 2 minutes at a time before sitting due to fatigue. Throughout pt was educated on relaxation techniques due to fear of falling. Pt then completed functional mobility to the room with Shorty and use of hand rail for UE support. Pt was left sitting upright in the celeste chair in her room per nurse allowing with lap tray in place, body alarm activated, and call light in hand. Continue with rec D/C plan to SNF. NITO Bernardo
--- NOTE | 2019-02-27 08:14 | NUR ---
New orders received from DR. Clay for right proximal humeral fracture. AROM r elbow, wrist and hand, NWB RUE, gentle pendulum right shoulder. OT goal as follows: Improve RUE AROM elb to hand to full. Good knowledge of right gentle pendulum exercises. Plan: issue written HEP for RUE AROM elb to hand and pendulum exercises, educate patient in above via oral and demonstrative instructions. Leila Medina OTr/L
--- NOTE | 2019-02-27 09:00 | NUR ---
PATIENT MUCH MORE ORIENTED AT THIS TIME. AWAKE AND ALERT. MEDS TAKEN WITHOUT DIFFICULTY. DENIES PAIN AT THIS TIME. PATIENT STATES SHE BELIEVES THAT THE PAIN PILL SHE HAD LAST NIGHT MADE HER CONFUSED.
--- NOTE | 2019-02-27 10:30 | NUR ---
Cardroom Drawing Runner in to see patient. No new needs or request at this time. When medically stable she will be discharged to [facility]. Dr. Curiel notified.
[2019-02-27 12:00] VITALS: BP 136/73
--- NOTE | 2019-02-27 13:16 | NUR ---
Notified [facility] patient probable discharge today; Daughter will transport.
[2019-02-27] MEDS ORDERED: CIPRO500 MG PO (13:33)
[2019-02-27] MEDS ORDERED: ZOFRAN8 M1 PO (13:35)
--- NOTE | 2019-02-27 13:37 | NUR ---
Spoke to Dr. Curiel regarding patient discharging to [facility]. New order to discharge patient to [facility]. Discharge summary is complete. assortment planner notified.
--- NOTE | 2019-02-27 14:00 | NUR ---
Spoke to friend, Nikki, at [phone] regarding patient discharging today to [facility]. Asked Nikki if she would be able to transport the patient to [facility] and she said she will be able to. She stated she would be at the hospital about 5pm. Nikki will stop and get clothes and shoes and some extra clothing for [facility]. Nurse, patient, and assortment planner notified.
[2019-02-27 16:00] VITALS: BP 113/49
--- NOTE | 2019-02-27 18:10 | NUR ---
Discharge instructions reviewed with patient/family. Patient receptive and verbalizes understanding. Follow-up care arranged. Written instructions given to patient/family. PT REFUSED DISCHARGE PHOTOS DUE TO ARM PAIN. REPORT GIVEN TO RECEIVING NURSE AT [facility]. PATIENT TAKEN OFF FLOOR BY WHEELCHAIR AND TRANSPORTED VIA FRIEND'S PRIVATE CAR. IMITATION MARBLE MECHANIC REMOVED. HEPLOCK DISCONTINUED. VELMA MONTES DE OCA
--- NOTE | 2019-02-28 08:37 | NUR ---
OCCUPATIONAL THERAPY CO-SIGN I approve of the Occupational Therapy notes written above. SHAVON URBANO OTR/Anup
--- NOTE | 2019-02-28 11:24 | NUR ---
PHYSICAL THERAPY CO-SIGN I approve of the Physical Therapy notes written above. Nuha Wagoner PT
== END 2019-02-27 18:19 | disposition other institution (70) | DRG 563 ==
LOC: ED 21:41 → 4E 02-24 00:40 → EDHOLD 02-24 00:40 → 4E 02-24 00:50
PROVIDERS: Emergency Medicine Emergency Medical Services; ADMIT Internal Medicine
DX: S42.301A Unspecified fracture of shaft of humerus, right arm, initial encounter for closed fracture (principal); E44.0 Moderate protein-calorie malnutrition; I50.22 Chronic systolic (congestive) heart failure; R62.7 Adult failure to thrive; S43.004A Unspecified dislocation of right shoulder joint, initial encounter; E87.6 Hypokalemia; E03.9 Hypothyroidism, unspecified; F41.1 Generalized anxiety disorder; J44.9 Chronic obstructive pulmonary disease, unspecified; I11.0 Hypertensive heart disease with heart failure; F17.210 Nicotine dependence, cigarettes, uncomplicated; F32.9 Major depressive disorder, single episode, unspecified; E78.2 Mixed hyperlipidemia; E55.9 Vitamin D deficiency, unspecified; R29.6 Repeated falls; I48.20 Chronic atrial fibrillation, unspecified; K21.0 Gastro-esophageal reflux disease with esophagitis; S61.012A Laceration without foreign body of left thumb without damage to nail, initial encounter; W18.30XA Fall on same level, unspecified, initial encounter; Y93.89 Activity, other specified; Y92.89 Other specified places as the place of occurrence of the external cause; Y99.8 Other external cause status; Z86.73 Personal history of transient ischemic attack (TIA), and cerebral infarction without residual deficits; Z88.0 Allergy status to penicillin; Z87.440 Personal history of urinary (tract) infections; Z79.01 Long term (current) use of anticoagulants; Z83.3 Family history of diabetes mellitus; Z90.710 Acquired absence of both cervix and uterus; Z68.22 Body mass index [BMI] 22.0-22.9, adult

== ENCOUNTER 2019-03-08 09:03 | Emergency (ER) | payer MEDICARE ==
[~2019-03-08] VITALS: Ht 170.1 cm; Wt 73.5 kg
[~2019-03-08 09:03] MED LIST changes: +ZOFRAN8 M1 PO
[2019-03-08] MEDS ORDERED: Motrin,Rufen400 MG PO (09:27)
[2019-03-08 09:35] LABS: BASO # 0.1 10*3/uL (0.0-0.1); BASO % 0.9 % (0.0-1.0); EOS % 0.4 % (1.0-4.0); HEMATOCRIT 36.5 % (37.0-47.0); HEMOGLOBIN 11.3 g/dl (12.0-16.0); LYMPH # 0.8 10*3/uL (1.3-4.4); LYMPH % 11.9 % (27.0-41.0); MEAN CELL VOLUME 84.7 fl (81.0-99.0); MEAN CORPUSCULAR HGB 26.2 pg (27.0-31.0); MEAN PLATELET VOLUME 10.5 fl (9.6-12.3); MONO # 0.5 10*3/uL (0.1-1.0); MONO % 7.4 % (3.0-9.0); NEUT # 5.4 10*3/uL (2.3-7.9); NEUT % 79.1 % (47.0-73.0); PLATELET COUNT AUTOMATED 250 10*3/uL (130-400); RED BLOOD COUNT 4.31 10*6/uL (4.10-5.10); RED CELL DISTRI WIDTH 16.6 % (0-14.5); WHITE BLOOD COUNT 6.8 10*3/uL (4.8-10.8)
[2019-03-08 09:49] LABS: ALBUMIN 2.8 gm/dl (3.1-4.5); ALKALINE PHOSPHATASE 109 U/L (45-117); BUN 9 mg/dl (7-24); CHLORIDE 110 mmol/L (98-107); CREATININE 0.85 mg/dL (0.55-1.02); POTASSIUM 3.5 mmol/L (3.5-5.1); SGOT/AST 29 IU/L (3-35); SGPT/ALT 40 U/L (12-78); SODIUM 142 mmol/L (136-145); TOTAL PROTEIN 5.8 gm/dL (6.4-8.2)
[2019-03-08 10:01] LABS: BILIRUBIN NEGATIVE (NEGATIVE); BLOOD NEGATIVE (NEGATIVE); CLARITY SL CLOUDY (CLEAR); COLOR YELLOW (YELLOW); GLUCOSE NEGATIVE (NEGATIVE); KETONE TRACE (NEGATIVE); LEUKO ESTERASE NEGATIVE (NEGATIVE); NITRITE NEGATIVE (NEGATIVE); PH 7.5 (5.0-9.0); UROBILINOGEN 0.2 E.U./dl (0.2-1.0)
[2019-03-08 10:24] LABS: BACTERIA 2+; COARSE GRANULAR CAST 0-2
== END 2019-03-08 11:53 | disposition home or self-care (01) ==
LOC: ED 09:03
PROVIDERS: Emergency Medicine
DX: R41.82 Altered mental status, unspecified (principal); R11.10 Vomiting, unspecified; I48.91 Unspecified atrial fibrillation; I11.0 Hypertensive heart disease with heart failure; I50.21 Acute systolic (congestive) heart failure; E11.9 Type 2 diabetes mellitus without complications; E07.9 Disorder of thyroid, unspecified; Z88.0 Allergy status to penicillin; Z79.899 Other long term (current) drug therapy; Z79.2 Long term (current) use of antibiotics; Z79.01 Long term (current) use of anticoagulants; Z90.710 Acquired absence of both cervix and uterus; Z86.73 Personal history of transient ischemic attack (TIA), and cerebral infarction without residual deficits

== ENCOUNTER 2019-03-09 06:23 | Inpatient (IN) | payer MEDICARE ==
[~2019-03-09] VITALS: Ht 167.6 cm; Wt 67.3 kg
--- NOTE | ~2019-03-09 | PR ---
[place], [place] PROGRESS NOTE NAME: [facility]IR[id number] #: [id number] ROOM: 510 DOCTOR: FANTA SHAW MD BIRTHDATE: [birth year] DOS: 03/12/2019 SUBJECTIVE: The patient is very weak, does open her eyes and communicates. No significant complaints of any new pains. She was complaining of some neck pains and I adjusted her pillow and the pain went away. OBJECTIVE: VITAL SIGNS: This morning blood pressure 124/68, heart rate of 96-108 beats per minute, breathing 16-20 times per minute, temperature 98 degrees Fahrenheit. GENERAL APPEARANCE: The patient is alert and oriented x 3, in no visible distress. Generalized weakness. HEENT AND NECK: Exam within normal limits. CARDIOVASCULAR SYSTEM: Heart rate is regular in rate and rhythm. S1 and S2 normally audible. LUNGS: Clear to auscultation. ABDOMEN: Soft, nontender. No obvious organomegaly. Bowel sounds are present. EXTREMITIES: Without significant cyanosis or edema. IMPRESSION: 1. The patient with advanced adult failure to thrive and disability with recurrent falls. We are taking bedsore and fall precautions. 2. Recent syncopal episode monitored for 24 hours. No obvious cardiac cause. 3. Hypothyroidism, replaced with thyroid supplements. 4. Chronic atrial fibrillation. The patient is anticoagulated and therapeutic on Coumadin. 5. Right humerus fracture, arm remains in a sling. 6. Moderate protein-calorie malnutrition. The patient is working with Dietary. 7. Hypokalemia. I will repeat serum electrolytes. I should be able to discharge the patient back to long-term tomorrow if patient's power of ip technology transactions attorney agrees. She is waiting for longterm placement. She was living at home. FANTA SHAW MD CM:PNTRANS [id number] FANTA SHAW MD 03/12/19 1302 interface
--- NOTE | ~2019-03-09 | EKG ---
[place], [place] ELECTROCARDIOGRAM REPORT NAME: BIGG RAMIRES UNIT #: [id number] ROOM: 510 DOCTOR: ALEXANDRIA DRAFT REPORT BIRTHDATE: [birth year] [facility] Test Date: 2019-03-09 Test Time: 06:56:57 Pat Name: BIGG RAMIRES Department: Room: 510 Gender: F [employer] Aide: GABRIEL : 1945 Requested By: VANESSA ARAGON Order Number: [id number] Reading MD: Kathia Sherman Measurements Intervals [place] Rate: 113 P: OR: QRS: 77 QRSD: 100 T: QT: 430 QTc: 590 Interpretive Statements Atrial fibrillation with RVR RSR' in V1 or V2, right VCD or RVH Prolonged QT interval Compared to ECG 10/11/2018 11:25:32 Right ventricular hypertrophy now present RSR' in V1 or V2 now present Prolonged QT interval now present Electronically Signed On 03-10-2019 11:33:30 PST by Kathia Sherman CM:EKGRPT:ELECTROCARDIOGRAM REPORT [id number] VANESSA HALL DRAFT REPORT VANESSA ARAGON DO
--- NOTE | ~2019-03-09 | PR ---
[place], [place] PROGRESS NOTE [id number] UN[facility] #: [id number] ROOM: 510 DOCTOR: FANTA SHAW MD BIRTHDATE: [birth year] DOS: 03/11/2019 SUBJECTIVE: The patient is very weak and lethargic, does open her eyes, bruising on the face, with generalized weakness. PHYSICAL EXAMINATION: GENERAL APPEARANCE: The patient is alert and oriented x 3, in no visible distress. VITAL SIGNS: Blood pressure 111/66, heart rate 109 beats per minute, breathing 16 times per minute, temperature 98 degrees Fahrenheit. HEENT AND NECK: Exam within normal limits. CARDIOVASCULAR SYSTEM: Heart rate is regular in rate and rhythm. S1 and S2 normally audible. LUNGS: Clear to auscultation. ABDOMEN: Soft, nontender. No obvious organomegaly. Bowel sounds are present. EXTREMITIES: Without significant cyanosis or edema. IMPRESSION: 1. The patient has extreme disability, adult failure to thrive and falls. We are taking bedsore and fall precautions. 2. The patient has syncopal episode and fall. No significant cardiac dysrhythmias on the surveillance system monitor on first 24 hours of cardiac monitoring. 3. Hypothyroidism, replaced with thyroid supplements. 4. Chronic atrial fibrillation. The patient anticoagulated with Coumadin with therapeutic INR. 5. Right humerus fracture, arm remains in a sling, has been evaluated by Dr. Clay. 6. Moderate protein-calorie malnutrition. The patient is working with Dietary. FANTA SHAW MD CM:PNTRANS [phone] FANTA SHAW MD 03/11/19 182 interface
--- NOTE | ~2019-03-09 | PR ---
[place], [place] PROGRESS NOTE [id number] #: [id number] ROOM: 510 DOCTOR: FANTA SHAW MD BIRTHDATE: [birth year] DOS: 03/13/2019 SUBJECTIVE: The patient continues to gain strength. OBJECTIVE: VITAL SIGNS: Blood pressure 132/68, heart rate of 96 beats per minute, breathing 16-20 times per minute, temperature 98.1 degrees Fahrenheit. GENERAL APPEARANCE: Generalized weakness. HEENT AND NECK: Bruising, especially around the right eye which is resolving. CARDIOVASCULAR SYSTEM: Heart rate is regular in rate and rhythm. S1 and S2 normally audible. LUNGS: Clear to auscultation. ABDOMEN: Soft, nontender. No obvious organomegaly. Bowel sounds are present. EXTREMITIES: Without significant cyanosis or edema. IMPRESSION AND PLAN: 1. Advanced adult failure to thrive and disability with recurrent falls. We are taking bedsore and fall precautions. 2. Recent syncopal episode for which she has been monitored on the athletic monitor for 24 hours. No signs of any cardiac reason for syncope. 3. Advanced adult failure to thrive. We are waiting for patient to be transferred to group home facility when arrangements are complete. 4. Hypothyroidism, replaced with thyroid supplements. 5. Chronic atrial fibrillation. The patient anticoagulated with Coumadin. 6. Right humerus fracture. The patient now remains on insulin. 7. Hypokalemia, treated with supplements. 8. Moderate protein-calorie malnutrition. The patient is working with Dietary. FANTA SHAW MD CM:PNTRANS [id number] FANTA SHAW MD 03/13/19 1129 interface
--- NOTE | ~2019-03-09 | WRIGHTHP ---
[place], [place] PATIENT HISTORY AND PHYSICAL EXAM NAME: [facility]IRES [id number] UNIT #: [id number] ROOM: 510 DOCTOR: FANTA SHAW MD BIRTHDATE: [birth year] DOS: 03/09/2019 HISTORY OF PRESENT ILLNESS: The patient had a fall at home and an orbital fracture, syncopal episode and was recommended for monitoring and admission. After admission, the patient is confused, but able to eat by herself with some guidance. She is not providing me with much history. No recent chest pain. No GI or urinary symptoms. REVIEW OF SYSTEMS: RESPIRATORY: No increasing shortness of breath. GASTROINTESTINAL: No nausea, vomiting, diarrhea, constipation. CARDIOVASCULAR: No chest pains or palpitations. ALLERGIES: KNOWN ALLERGIES TO PENICILLIN. PHYSICAL EXAMINATION: GENERAL APPEARANCE: The patient is alert and oriented x 3, in no visible distress, generalized weakness. VITAL SIGNS: Blood pressure 143/73, heart rate of 112 beats per minute, breathing 20 times per minute, temperature 98.1 degrees Fahrenheit. HEENT AND NECK: Extraocular movements are intact. Sclerae are anicteric. Oral mucosa is moist and clean. No obvious facial weakness. Neck is supple without any lymphadenopathy. No thyromegaly. No JVD. No carotid arterial bruits. LUNGS: Clear to auscultation. No wheezing. No rhonchi. CARDIOVASCULAR SYSTEM: Irregularly irregular heart rate. S1 and S2 normally audible. No significant murmur or any other abnormal cardiac sounds. ABDOMEN: Soft, nontender. No obvious organomegaly. Bowel sounds are present. No obvious herniation. EXTREMITIES: Without significant cyanosis or edema. Warm to touch. CENTRAL NERVOUS SYSTEM The patient's right arm is in sling because of previous fracture and bruising around the right eye and ecchymosis. Generalized muscle wasting and generalized weakness. The patient is disoriented. IMPRESSION: 1. Advanced adult failure to thrive and disability. We are taking bedsore and fall precautions. 2. Syncopal episode at home. The patient was started on a air sampling and monitoring and being followed closely. We are using an air mattress for bedsore precautions and I will try to get her to shelter for rehabilitation, which has been refused in the past. 3. Chronic atrial fibrillation. The patient anticoagulated with Coumadin. INR therapeutic at 2.4. No significant bleeding, so Coumadin will be continued. 4. Hypothyroidism, to be replaced with thyroid supplements. 5. History of right humerus fracture for which was evaluated by Dr. Clay in the past. The patient in an arm sling as an immobilizer. 6. Moderate protein-calorie malnutrition. The patient worked with Dietary. 7. Advanced adult failure to thrive. The patient to undergo rehabilitation. [place], [place] PATIENT HISTORY AND PHYSICAL EXAM NAME: BIGG RAMIRES Jai UNIT #: [id number] ROOM: [facility] DOCTOR: FANTA SHAW MD BIRTHDATE: [birth year] FANTA SHAW MD CM:HISPHYS:PATIENT HISTORY AND PHYSICAL EXAMINATION [phone] FANTA SHAW MD 03/09/191902 interface
--- NOTE | ~2019-03-09 | DS ---
[place], [place] DISCHARGE SUMMARY NAME: BIGG RAMIRES UNIT #: [id number] ROOM: 510 DOCTOR: FANTA SHAW MD BIRTHDATE: [birth year] DOS: 03/14/2019 DISCHARGE SUMMARY DISCHARGE DIAGNOSES: 1. The patient with advanced disability and adult failure to thrive, mostly stays in bed. 2. Recurrent falls and ambulatory dysfunction. 3. Right humerus fracture in a sling, evaluated by Dr. Clay. 4. Chronic atrial fibrillation. The patient anticoagulated with Coumadin. 5. Hypokalemia. 6. Moderate protein-calorie malnutrition. 7. Hypothyroidism. 8. Syncopal episode. The patient monitored for 24 hours. HOSPITAL COURSE: 1. The patient presented with advanced adult failure to thrive and disability. We took bedsore and fall precautions. The patient worked with physical therapy. 2. The patient had a syncopal episode at home and she was having recurrent falls and monitored her for 24 hours with a comfort care code status, just look for any cardiac cause of syncope, which was not found and she was being discharged to rehab for further physical therapy. 3. Altered mental status with very weak and lethargic, has all improved. She is more awake, alert and talking now. 4. Chronic atrial fibrillation. The patient anticoagulated with Coumadin. Heart rate controlled with digoxin. 5. Hypothyroidism, replaced with levothyroxine. 6. Gastroesophageal reflux disease and esophagitis, asymptomatic with omeprazole. LABORATORY DATA: INR therapeutic at 3.1. Normal serum electrolytes, BUN and creatinine. Blood cultures negative. DISCHARGE MANAGEMENT: The patient to be continued on levothyroxine 25 mcg daily, omeprazole 20 mg a day, amiodarone 200 mg daily, Coumadin 2 mg every Tuesday, Tuesday, Tuesday, , Tuesday, and Tuesday and 1 mg on Tuesdays, tramadol 50 mg b.i.d., digoxin 125 mcg every other day. Consult physical therapy and occupational therapy. [place], [place] DISCHARGE SUMMARY NAME: BIGG RAMIRES UNIT #: [id number] ROOM: 510 DOCTOR: FANTA SHAW MD BIRTHDATE: [birth year] FANTA SHAW MD CM:CLEO [id number] FANTA SHAW MD 03/14/19 1017 interface
--- NOTE | ~2019-03-09 | PR ---
[place], [place] PROGRESS NOTE NAME: BIGG RAMIRES UNIT #: [id number] ROOM: 510 DOCTOR: FANTA SHAW MD BIRTHDATE: [birth year] DOS: 03/10/2019 SUBJECTIVE: The patient is very weak. Able to move all extremities. Has bruising on her face from recent fall, right arm in a sling from the right humerus fracture, has been evaluated by Dr. Clay. OBJECTIVE: GENERAL APPEARANCE: Generalized weakness. VITAL SIGNS: Blood pressure 130/61, heart rate 111 beats per minute, breathing 16-20 times per minute, temperature 98 degrees Fahrenheit. HEENT AND NECK: Exam within normal limits. CARDIOVASCULAR SYSTEM: Heart rate is regular in rate and rhythm. S1 and S2 normally audible. LUNGS: Clear to auscultation. ABDOMEN: Soft, nontender. No obvious organomegaly. Bowel sounds are present. EXTREMITIES: Without significant cyanosis or edema. IMPRESSION: 1. Advance adult failure to thrive, disability and falls. We are taking bedsore and fall precautions. 2. Syncopal episode at home. The patient was monitored for 24 hours, but she maintains a comfort care code status. No significant cardiac dysrhythmias were observed. The cause of syncope appears to be not from a cardiac pathology. 3. Advanced adult failure to thrive. We are using air mattress to prevent bedsores along with every 2-hour turning. 4. Chronic atrial fibrillation. The patient anticoagulated with Coumadin. INR was therapeutic at 2.4. 5. Hypothyroidism. The patient on thyroid supplements. 6. History of right humerus fracture. The patient's right arm remains in an immobilizer sling. 7. Advance adult failure to thrive and poor long-term prognosis. 8. Moderate protein-calorie malnutrition, being followed by dietary and encouraged to eat. 9. Adult failure to thrive. The patient undergoing physical therapy and to go to rehab after discharge from the hospital. [place], [place] PROGRESS NOTE NAME: BIGG RAMIRES UNIT #: [id number] ROOM: 510 DOCTOR: FANTA SHAW MD BIRTHDATE: [birth year] FANTA SHAW MD CM:GAEL [phone] FANTA SHAW MD 03/11/19 1419 interface
[~2019-03-09 06:23] MED LIST changes: +Motrin,Rufen400 MG PO
[2019-03-09 06:31] VITALS: BP 144/72
[2019-03-09 07:16] LABS: BASO # 0.1 10*3/uL (0.0-0.1); BASO % 0.7 % (0.0-1.0); EOS % 0.4 % (1.0-4.0); HEMATOCRIT 38.2 % (37.0-47.0); HEMOGLOBIN 11.2 g/dl (12.0-16.0); LYMPH # 0.8 10*3/uL (1.3-4.4); LYMPH % 11.2 % (27.0-41.0); MEAN CORPUSCULAR HGB 25.5 pg (27.0-31.0); MEAN CORPUSCULAR HGB CONC 29.3 g/dl (33.0-37.0); MEAN PLATELET VOLUME 11.3 fl (9.6-12.3); MONO # 0.6 10*3/uL (0.1-1.0); MONO % 8.4 % (3.0-9.0); NEUT # 5.6 10*3/uL (2.3-7.9); PLATELET COUNT AUTOMATED 270 10*3/uL (130-400); RED BLOOD COUNT 4.39 10*6/uL (4.10-5.10); RED CELL DISTRI WIDTH 16.9 % (0-14.5); WHITE BLOOD COUNT 7.1 10*3/uL (4.8-10.8)
--- NOTE | 2019-03-09 07:26 | NUR ---
UPDATED [facility] ON PATIENT.
[2019-03-09 07:34] LABS: ALBUMIN 2.7 gm/dl (3.1-4.5); ALKALINE PHOSPHATASE 108 U/L (45-117); BUN 14 mg/dl (7-24); CHLORIDE 109 mmol/L (98-107); CREATININE 0.98 mg/dL (0.55-1.02); INTERNATIONAL NORM RATIO 2.4 (2.0-3.5); POTASSIUM 3.5 mmol/L (3.5-5.1); SGOT/AST 28 IU/L (3-35); SGPT/ALT 43 U/L (12-78); SODIUM 143 mmol/L (136-145); TOTAL PROTEIN 5.8 gm/dL (6.4-8.2)
[2019-03-09 07:35] LABS: TROPONIN I < 0.015 ng/ml (<0.045)
[2019-03-09 10:45] VITALS: BP 152/95
[2019-03-09 11:00] VITALS: BP 152/95
--- NOTE | 2019-03-09 11:00 | NUR ---
A 73, admitted to 5E, under the services of Dr. COLIN SELF,FANTA Vergara with a diagnosis of SYNCOPE, CLOSED HEAD INJURY. Chief complaint is DIZINESS. Patient arrived via stretcher from ER. Monitor applied. Initial assessment completed. Vital signs taken and recorded. DR. COLIN SELF,FANTA Vergara notified of admission to the unit. Orders received. See assessment for past medical history, medications and allergies. Patient and/or family oriented to unit. [facility]. visitation policy reviewed. Clothing/patient valuable form completed. MEAGAN RAMIREZ
[2019-03-09 12:00] VITALS: BP 144/71
--- NOTE | 2019-03-09 15:17 | NUR ---
Nursing screen received and chart review completed. Patient was hospitalized after an unwitnessed fall at the halfway and altered mental status. Due to fall and syncope, patient could benefit from Occupational Therapy evaluation for d/c planning. Thank you. Edgardo Medina OTR/ede
[2019-03-09 16:00] VITALS: BP 143/73
[2019-03-09 18:14] LABS: BILIRUBIN 1+ (NEGATIVE); BLOOD NEGATIVE (NEGATIVE); CLARITY SL CLOUDY (CLEAR); COLOR YELLOW (YELLOW); GLUCOSE NEGATIVE (NEGATIVE); KETONE NEGATIVE (NEGATIVE); LEUKO ESTERASE TRACE (NEGATIVE); NITRITE NEGATIVE (NEGATIVE); PH 6.5 (5.0-9.0); SPECIFIC GRAVITY 1.025 (1.005-1.030); UROBILINOGEN 0.2 E.U./dl (0.2-1.0)
[2019-03-09 18:23] LABS: BACTERIA TRACE
[2019-03-09 20:00] VITALS: BP 118/74
--- NOTE | 2019-03-09 20:28 | NUR ---
TYLENOL ADMINISTERED FOR PT C/O 01/25 HEADACHE AND GENERALIZED PAIN. WHEN ASKED WHERE THE PAIN IS THE PT STATES "WHERE ISN'T IT". WILL CONTINUE TO MONITOR AND REASSESS. PT RESTING IN BED AT THIS TIME.
--- NOTE | 2019-03-09 21:12 | NUR ---
24 HOUR CHART CHECK COMPLETE.
--- NOTE | 2019-03-09 21:16 | NUR ---
PT STATES THAT THE TYLENOL "TOOK THE EDGE OFF AND THAT SHE FEELS MUCH MORE COMFORTABLE". PT STILL MOANS WITH MOVEMENT, BUT WAS REPOSITIONED IN BED TO PROMOTE COMFORT.
[2019-03-10] VITALS: BP 113/65
[2019-03-10 06:38] LABS: BASO % 0.6 % (0.0-1.0); EOS # 0.1 10*3/uL (0.0-0.4); EOS % 1.1 % (1.0-4.0); HEMATOCRIT 37.1 % (37.0-47.0); LYMPH # 1.2 10*3/uL (1.3-4.4); LYMPH % 17.5 % (27.0-41.0); MEAN CELL VOLUME 85.7 fl (81.0-99.0); MEAN CORPUSCULAR HGB 25.4 pg (27.0-31.0); MEAN CORPUSCULAR HGB CONC 29.6 g/dl (33.0-37.0); MEAN PLATELET VOLUME 11.3 fl (9.6-12.3); MONO # 0.7 10*3/uL (0.1-1.0); MONO % 9.9 % (3.0-9.0); NEUT % 70.5 % (47.0-73.0); PLATELET COUNT AUTOMATED 277 10*3/uL (130-400); RED BLOOD COUNT 4.33 10*6/uL (4.10-5.10); RED CELL DISTRI WIDTH 16.7 % (0-14.5); WHITE BLOOD COUNT 7.1 10*3/uL (4.8-10.8)
[2019-03-10 06:55] LABS: BUN 10 mg/dl (7-24); CHLORIDE 111 mmol/L (98-107); CREATININE 0.85 mg/dL (0.55-1.02); POTASSIUM 3.3 mmol/L (3.5-5.1); SODIUM 147 mmol/L (136-145)
[2019-03-10 08:00] VITALS: BP 110/68
--- NOTE | 2019-03-10 10:03 | NUR ---
PT CRYING IN PAIN. RATES PAIN 01/25. DR SHAW NOTIFIED. ORDERS FOR IV DILAUDID 0.5 MG Q6H RECEIVED.
[2019-03-10 12:00] VITALS: BP 92/54
[2019-03-10 16:00] VITALS: BP 130/61
--- NOTE | 2019-03-10 19:00 | NUR ---
REPORT RECEIVED FROM DAYLIGHT NURSE. PT IS SLEEPING IN BED AT THIS TIME. NC INTACT AT 2L O2. PT RIGHT EYE IS BRUISED, REPIRATIONS EASY. NO SIGNS OF DISTRESS. CALL LIGHT AND BED SIDE TABLE IN REACH.
[2019-03-10 20:00] VITALS: BP 115/68
[2019-03-11] VITALS: BP 116/61
--- NOTE | 2019-03-11 | NUR ---
PT SLEEPING AT THIS TIME. RESPIRATIONS ARE EASY
--- NOTE | 2019-03-11 03:00 | NUR ---
PT SLEEPING, CALL LIGHT IN REACH.
--- NOTE | 2019-03-11 05:15 | NUR ---
24 HR chart check completed.
[2019-03-11 08:00] VITALS: BP 122/72
--- NOTE | 2019-03-11 08:12 | NUR ---
IN TO ASSESS PATIENT. PATIENT TEARFUL. ALERT AND ORIENTED AT THIS TIME. WHEN ASKED WHAT HAPPENED TO PATIENT, SHE STATED THAT SHE IS TRYING TO FIGURE IT OUT. PATIENT IS COOPERATIVE WITH ASSESSMENT. BREATHING IS EASY AND REGULAR ON 2L NC. DIMINISHED LUNGS T/O. NORMOACTIVE BOWELS X4 QUADS. PRN DILAUDID GIVEN FOR PT COMPLAINTS OF 9/10 PAIN. NO EDEMANOTED. HEART RATE IS IRREGULAR WITH HISTORY OF AFIB. PATIENT SITTING UP IN CHAIR.CALL LIGHT WITHIN REACH, WILL MONITOR
--- NOTE | 2019-03-11 08:19 | NUR ---
AFTER ADMINISTERING DILAUDID PATIENT BECAME NAUSEATED. PRN ZOFRAN GIVEN. CALL LIGHT WITHIN REACH, WILL MONITOR
--- NOTE | 2019-03-11 09:30 | NUR ---
ALL PRN MEDICATION APPEARS EFFECTIVE, PT SLEEPING IN BED. 2LNC REMAINS INTACT, NO DISTRESS NOTED. CALL LIGHT WITHIN REACH
--- NOTE | 2019-03-11 10:15 | NUR ---
PHYSICAL THERAPY PT EVAL COMPLETED TODAY ON LEVEL 5: FULL EVAL TO FOLLOW. RECOMMEND PT WHILE HERE TO ADDRESS DECREASED STRENGTH, BALACNE AND FUNCTIONAL MOBILITY. PT EVAL IS MODERATE COMPLEXITY: 10464. D/C RECOMMENDATIONS ARE TO RETRUN TO [facility] WHEN MEDICALLY STABLE TO CONTINUE REHAB. THANK YOU FOR REFERRAL AUBREE YING PT
--- NOTE | 2019-03-11 10:50 | NUR ---
24 HR chart check completed.
--- NOTE | 2019-03-11 11:15 | NUR ---
VISITORS AT BEDSIDE WITH PATIENT.
[2019-03-11 12:00] VITALS: BP 120/64
--- NOTE | 2019-03-11 14:22 | NUR ---
PT SLEEPING. NO DISTRESS NOTED. CALL LIGHT WITHIN REACH, WILL MONITOR
--- NOTE | 2019-03-11 15:23 | NUR ---
ORDERS RECIEVED FROM DR. SHAW FOR PATIENTS WOUNDS
[2019-03-11 16:00] VITALS: BP 111/66
--- NOTE | 2019-03-11 17:00 | NUR ---
PATIENT REFUSING PAIN MEDICATION
--- NOTE | 2019-03-11 19:20 | NUR ---
REPORT RECEIVED FROM MIL PATTEN. PT IS SLEEPING AT THIS TIME. RESPIRATIONS ARE EASY. CALL LIGHT IN REACH.
[2019-03-11 20:00] VITALS: BP 130/68
--- NOTE | 2019-03-11 23:18 | NUR ---
PT YELLING OUT AT THIS TIME. STATES"IM HURING SO BAD SOMEONE HELP ME" ASKED PT IF SHE WOULD LIKE PAIN MEDICATIONS SHE SAID "NO. HELP ME" I EXPLAINED TO HER THAT IT WOULD HELP HER FACE AND I COULD GIVE IT THROUGH THE IV SO SHE WOULDNT HAVE TO SWALLOW PILLS. SHE AGREED. PT THEN MEDICATED WITH DILAUDID PER ORDER FOR 10/10 FACIAL PAIN FROM FALL. WILL MONITOR EFFECTIVENESS.
[2019-03-12] VITALS: BP 122/62
--- NOTE | 2019-03-12 01:00 | NUR ---
DILAUDID APPEARS EFFECTIVE. PT SLEEPING AT THIS TIME. NO SIGNS OR SYMPTOMS OF DISTRESS. PT BREATHING EASY AND UNLABORED. CALL LIGHT IN REACH.
--- NOTE | 2019-03-12 06:11 | NUR ---
BIGG RAMIRES Jai [id number] Please refer to the physician's history and physical for past medical history, comorbid conditions, and allergies. Diagnosis: SYNCOPE HEAD INJURY Sebastián Score: 16,MODERATE RISK WOUND DESCRIPTIONS: Wound Number: 1 Location of the wound: Left lateral forearm towards (bottom) Type of wound: skin tear Thickness: Partial Size: 0.5cm x 1.2cm x 0.1cm Tunneling: none Undermining: none Sinus Tract: none Presence of Exudate: Serosanguineous Amount: Light Color: Red Odor: None Periwound Skin Appearance: Normal Wound edges: approximated Pain (associated with wound): none at time of assessment How does patient state this happened? pt unsure how this happened Wound Number: 2 Location of the wound: Left lateral forearm top Type of wound: skin tear Thickness: Partial Size: 2.7cm x 1.8cm x 0.1cm Tunneling: none Undermining: none Sinus Tract: none Presence of Exudate: Serosanguineous Amount: Light Color: Red Odor: None Periwound Skin Appearance: Normal Wound edges: approximated Pain (associated with wound): none at time of assessment How does patient state this happened? pt unsure how this happened Wound Number: 3 Location of the wound: Left hand Type of wound: skin tear Thickness: Partial Size: 0.5cm x 0.7cm x 0.1cm Tunneling: none Undermining: none Sinus Tract: none Presence of Exudate: Serosanguineous Amount: Light Color: Red Odor: None Periwound Skin Appearance: Normal Wound edges: approximated Pain (associated with wound): none at time of assessment How does patient state this happened? pt unsure how this happened Wound Number: 4 Location of the wound: Left forearm middle wound towards bottom Type of wound: skin tear Thickness: Partial Size: 1.0cm x 0.8cm x 0.1cm Tunneling: none Undermining: none Sinus Tract: none Presence of Exudate: Serosanguineous Amount: Light Color: Red Odor: None Periwound Skin Appearance: Normal Wound edges: approximated Pain (associated with wound): none at time of assessment How does patient state this happened? pt unsure how this happened Wound Number: 5 Location of the wound: Left forearm middle wound towards top Type of wound: skin tear Thickness: Partial Size: 0.4cm x 1.5cm x 0.1cm Tunneling: none Undermining: none Sinus Tract: none Presence of Exudate: Serosanguineous Amount: Light Color: Red Odor: None Periwound Skin Appearance: Normal Wound edges: approximated Pain (associated with wound): none at time of assessment How does patient state this happened? pt unsure how this happened Surface the patient is resting on: Position Pro SKIN PREVENTION RECOMMENDATION: 1. Pressure redistribution support surface as appropriate 2. Elevate heels 3. Remove boots/TEDS every shift and reapply 4. Head of bed 30 degrees as tolerated 5. Assess nutrition and hydration 6. Manage moisture 7. Avoid the use of containment devices while in bed 8. Use absorptive products on surfaces limit layers of linens on bed 9. Turn and reposition every 1-2 hours in bed and every 1 hour in chair as tolerated 10. Weight shifts every 15 minutes while up in chair 11. Offloading with pillows or device to keep heels elevated off bed 12. Monitor skin at least every shift 13. Inspect under medical devices twice a day WOUND TREATMENT RECOMMENDATIONS: Continue skin tear guidelines to left hand and left forearm nss, sureprep, hydrogel and cover with optifoam gentle
[2019-03-12 07:25] LABS: INTERNATIONAL NORM RATIO 3.1 (2.0-3.5)
[2019-03-12 08:00] VITALS: BP 124/68
--- NOTE | 2019-03-12 08:01 | NUR ---
Patient is short term at [facility]. NEWS COPY EDITOR faxed updates to [facility]. -RICARDO Vale
--- NOTE | 2019-03-12 08:05 | NUR ---
PHYSICAL THERAPY Screen received pt is on caseload, thank you. Nuha Wagoner PT
--- NOTE | 2019-03-12 09:00 | NUR ---
Residential Direct Support Professional in to see patient. She is currently short term at [facility] and plans to return there upon discharge. media planner following. She c/o room spinning after receiving pain medication through her IV. Lights turned down, given call light to call for assistance, she verbalized an understanding.
--- NOTE | 2019-03-12 09:15 | NUR ---
MEDICATED WITH DILAUDID PER PRN ORDER FOR COMPLAINTS OF FACIAL PAIN, PT RATES PAIN 10/10. WILL MONITOR FOR EFFECTIVENESS.
--- NOTE | 2019-03-12 09:15 | NUR ---
PHYSICAL THERAPY PT SUPINE IN BED WITH HEAD OF BED ELEVATED. PT STATED " I'M TO DIZZY AND I FEEL TERRIBLE. NOT NOW PLEASE." PHYSICAL THERAPY WILL ATTEMPT AGAIN AT ANOTHER TIME/DATE. LESLIE SALOMON PTA
--- NOTE | 2019-03-12 10:00 | NUR ---
PT STATES EARLIER DILAUDID HELPED WITH PAIN IN HER FACE/HEAD. RESTING COMFORTABLY.
--- NOTE | 2019-03-12 10:25 | NUR ---
PHYSICAL THERAPY PT SITTING IN RECLINER UPON SECOND ATTEMPT THIS A.M. PT STATED " NO THERAPY UNTIL THE PAIN GOES DOWN AND I AM NOT NAUSEATED ANY MORE." PHYSICAL THERAPY WILL TRY AGAIN AT ANOTHER TIME/DATE. LESLIE SALOMON PTA
[2019-03-12 12:00] VITALS: BP 111/55
--- NOTE | 2019-03-12 12:45 | NUR ---
PHYSICAL THERAPY Patient was sitting up in bedside chair this pm when approached for therapy and reports increased c/o of R shoulder / L neck pain. Patient stated she did not feel up for any treatment at this time and requested to stay in chair to rest. Will continue per POC as able. Jamar Cohen, LABOR ECONOMICS TEACHER
[2019-03-12 16:00] VITALS: BP 117/69
--- NOTE | 2019-03-12 18:07 | NUR ---
MEDICATED WITH DILAUDID AND ZOFRAN PER PRN ORDER FOR COMPLAINTS OF INCREASED FACIAL PAIN AND NAUSEA. WILL MONITOR FOR EFFECTIVENESS.
[2019-03-12 20:00] VITALS: BP 105/53
[2019-03-13] VITALS: BP 100/62
--- NOTE | 2019-03-13 03:36 | NUR ---
24 HR chart check completed.
--- NOTE | 2019-03-13 04:14 | NUR ---
Upon discharge recommend patient to follow up for wound care in outpatient setting continue current wound care orders at discharging facility.
--- NOTE | 2019-03-13 05:33 | NUR ---
AWOKE ON HER OWN ALERT AND ORIENTED X3. C/O HEAD HURTING AND RIGHT ARM IN SLING AND C/O THIS ALSO HURTING. SLING ADJUSTED. UP TO BEDSIDE COMMODE WITH ASSISTANCE. PATIENT AFRAID OF FALLING AGAIN. PATIENT BACK TO BED WITH ASSISTANCE AND PO MEDICATIONS GIVEN. BED ALARM ON. CALL LIGHT IN REACH.
[2019-03-13 07:00] LABS: BUN 14 mg/dl (7-24); CHLORIDE 107 mmol/L (98-107); CREATININE 0.99 mg/dL (0.55-1.02); POTASSIUM 4.2 mmol/L (3.5-5.1); SODIUM 142 mmol/L (136-145)
--- NOTE | 2019-03-13 07:52 | NUR ---
BATCH FREEZER faxed updates to [facility]. -RICARDO Vale
[2019-03-13 08:00] VITALS: BP 132/68
--- NOTE | 2019-03-13 08:28 | NUR ---
SPOKE WITH DR CHRISTOPHER REGARDING PT'S PAIN, PT STATES TYLENOL IS NOT HELPING MUCH, BUT THE DIALUDID MAKES HER FEEL HOT AND DIZZY. ORDER RECEIVED FOR ULTRAM BID.
--- NOTE | 2019-03-13 09:00 | NUR ---
Exploration Driller in to see patient. She is currently short term at [facility] and plans to return there upon discharge. assortment planner following. Possible discharge today.
--- NOTE | 2019-03-13 09:40 | NUR ---
PT COMPLAINS OF NAUSEA. MEDICATED WITH ZOFRAN PER PRN ORDER. WILL MONITOR FOR EFFECTIVENESS.
--- NOTE | 2019-03-13 11:00 | NUR ---
PT RESTING, EARLIER MEDICATIONS EFFECTIVE.
--- NOTE | 2019-03-13 11:15 | NUR ---
PHYSICAL THERAPY Patient presented to therapy in supine with head of bed elevated and report of 8/10 PAIN IN THE R shoulder. Patient gives informed consent for treatment. Patient was identified by name AND ON WRISTBAND. Patient performed supine to sitting at EOB transfer with MIN A X 1. Patient sat on EOB with CGA X 1 due to patient being very dizzy. Patient scooted herself to EOB CGA. Patient sat on EO Bfor 3 minutes with CGA X 2. Patient performed sit to stand from EOB with MIN A X 1 pushing off bed with L LE. Patient stood at bedside with RECOVERY MANAGER X 1 on the L LE for 1 minute and then had to sit on EOB because of dizziness. Patient has sling on the R LE and is NWB on the R LE. Patient transferred back to supine in bed with SBA scooted herself up in bed herself SBA. Patient was left in supine in bed with head of bed elevated, call light within reach and bed alarm activated. Patient was 1:1 with this MARBLE SUPERVISOR for 19 minutes total. Alex Delacruz police captain senior
[2019-03-13 12:00] VITALS: BP 112/54
--- NOTE | 2019-03-13 13:31 | NUR ---
DRESSINGS APPLIED TO LEFT ARM SKIN TEARS PER ORDER.
--- NOTE | 2019-03-13 14:11 | NUR ---
Discussed discharge planning with Dr. Curiel. Plan is to discharge patient to [facility] tomorrow.
[2019-03-13 16:00] VITALS: BP 108/55
[2019-03-13 20:00] VITALS: BP 114/53
--- NOTE | 2019-03-13 20:48 | NUR ---
24 HR chart check completed.
--- NOTE | 2019-03-13 21:00 | NUR ---
SLEEPING, AWAKENS EASILY. RESPIRATIONS EASY. LUNGS DIMINISHED. PULSE OX 98% 2L, O2 REMOVED PATIENT DOES NOT ROUTINELY USE. RIGHT EYE ECHHYMOTIC. RIGHT ARM/SHOULDER REMAINS IN IMMOBILIZER. CALL LIGHT WITHIN REACH. BED ALARM IN PLACE FOR SAFETY
--- NOTE | 2019-03-13 22:30 | NUR ---
MEDICATED WITH ROUTINE ULTRAM AND TYLENOL TO ASSIST WITH PAIN TO RIGHT ARM RATING A 10. WILL MONITOR
[2019-03-14] VITALS: BP 122/60
--- NOTE | 2019-03-14 | NUR ---
MEDS APPEAR EFFECTIVE. SLEEPING. RESPIRATIONS EASY. VSS. CALL LIGHT WITHIN REACH. BED ALARM MAINTAINED
--- NOTE | 2019-03-14 06:00 | NUR ---
SLEPT THROUGHOUT NIGHT WITH NO DISTRESS NOTED. RESPIRATIONS EASY. CALL LIGHT WITHIN REACH. NO VOICED COMPLAINTS THIS SHIFT. BED ALARM MAINTAINED FOR SAFETY
[2019-03-14 08:00] VITALS: BP 114/60
--- NOTE | 2019-03-14 08:00 | NUR ---
Automation Test Engineer in to see patient. No new needs or request at this time. When medically stable she will be discharged to [facility]. digital sales planner following. Possible discharge today.
--- NOTE | 2019-03-14 09:30 | NUR ---
DR. Curiel in and states pt is going to be dc.
--- NOTE | 2019-03-14 10:30 | NUR ---
Pt states routine ultram helped to relieve pain.
--- NOTE | 2019-03-14 11:20 | NUR ---
Report called to [facility]. Notified of dc and picker box operator time at 3 pm per park warden. Spoke with July nurse to nurse report given.
--- NOTE | 2019-03-14 12:35 | NUR ---
PLANT GUARD notifid of patient discharge. PLANT GUARD spoke with RN. PLANT GUARD spoke with patient who stated she has no transportation. PLANT GUARD spoke with [facility], she was able to have transportation within 45 mins. PLANT GUARD notified Work Pigment Mixer. PLANT GUARD reached out to family friend Flower. She is aware the patient will be returning to [facility] today. PLANT GUARD will fax discharge orders. -RICARDO Vale
--- NOTE | 2019-03-14 12:58 | NUR ---
Pt dc via wheelchair to ambulette from [facility]. DC with belongings. IV and monitor was removed.
--- NOTE | 2019-03-14 15:01 | NUR ---
PHYSICAL THERAPY CO-SIGN I approve of the Physical Therapy notes written above. Nuha Wagoner PT
== END 2019-03-14 13:01 | disposition other institution (70) | DRG 86 ==
LOC: ED 06:23 → 5E 09:35 → EDHOLD 09:35 → 5E 10:52
PROVIDERS: Emergency Medicine; ADMIT Internal Medicine
DX: S02.85XA Fracture of orbit, unspecified, initial encounter for closed fracture (principal); E44.0 Moderate protein-calorie malnutrition; I50.22 Chronic systolic (congestive) heart failure; I48.20 Chronic atrial fibrillation, unspecified; R55 Syncope and collapse; R62.7 Adult failure to thrive; E03.9 Hypothyroidism, unspecified; E87.6 Hypokalemia; S09.90XA Unspecified injury of head, initial encounter; R29.6 Repeated falls; K21.0 Gastro-esophageal reflux disease with esophagitis; W18.30XA Fall on same level, unspecified, initial encounter; Y93.89 Activity, other specified; Y92.098 Other place in other non-institutional residence as the place of occurrence of the external cause; Y99.8 Other external cause status; Z86.73 Personal history of transient ischemic attack (TIA), and cerebral infarction without residual deficits; Z87.440 Personal history of urinary (tract) infections; Z88.0 Allergy status to penicillin; Z83.3 Family history of diabetes mellitus; Z68.22 Body mass index [BMI] 22.0-22.9, adult

== ENCOUNTER 2019-03-18 10:15 | Inpatient (IN) | payer MEDICARE ==
[~2019-03-18] VITALS: Ht 172.7 cm; Wt 66.9 kg
[2019-03-18 10:16] VITALS: BP 134/67
[2019-03-18 10:31] LABS: BASO % 0.5 % (0.0-1.0); EOS % 0.3 % (1.0-4.0); HEMATOCRIT 40.8 % (37.0-47.0); HEMOGLOBIN 12.2 g/dl (12.0-16.0); LYMPH # 0.9 10*3/uL (1.3-4.4); LYMPH % 11.7 % (27.0-41.0); MEAN CORPUSCULAR HGB 25.4 pg (27.0-31.0); MEAN CORPUSCULAR HGB CONC 29.9 g/dl (33.0-37.0); MEAN PLATELET VOLUME 11.6 fl (9.6-12.3); MONO # 0.4 10*3/uL (0.1-1.0); MONO % 5.4 % (3.0-9.0); NEUT # 6.4 10*3/uL (2.3-7.9); NEUT % 81.8 % (47.0-73.0); PLATELET COUNT AUTOMATED 248 10*3/uL (130-400); RED CELL DISTRI WIDTH 16.5 % (0-14.5); WHITE BLOOD COUNT 7.8 10*3/uL (4.8-10.8)
[2019-03-18 10:43] LABS: ACT PARTIAL THROMBO TIME 40.2 SECONDS (20.0-32.1); INTERNATIONAL NORM RATIO 4.5 (2.0-3.5)
[2019-03-18 10:53] LABS: ALBUMIN 2.8 gm/dl (3.1-4.5); ALKALINE PHOSPHATASE 112 U/L (45-117); BUN 8 mg/dl (7-24); CHLORIDE 106 mmol/L (98-107); CREATININE 0.94 mg/dL (0.55-1.02); POTASSIUM 3.4 mmol/L (3.5-5.1); SGOT/AST 22 IU/L (3-35); SGPT/ALT 25 U/L (12-78); SODIUM 142 mmol/L (136-145); TOTAL PROTEIN 6.1 gm/dL (6.4-8.2)
[2019-03-18 10:55] LABS: TROPONIN I < 0.015 ng/ml (<0.045)
--- NOTE | 2019-03-18 11:19 | NUR ---
PT REFUSES TO TRY TO TOILET FOR URINE SPECIMEN OR BE STRAIGHT CATH'D. SHE STATES "THEY CAN DO IT UPSTAIRS".
[2019-03-18 11:35] VITALS: BP 132/66
[2019-03-18 11:51] VITALS: BP 143/67
--- NOTE | 2019-03-18 11:51 | NUR ---
A 73, admitted to , under the services of BHARATH Bernal MD with a diagnosis of TACHYCARDIA. Chief complaint is CONFUSION. Patient arrived via bed from ER. Monitor applied. Initial assessment completed. Vital signs taken and recorded. BHARATH BERNAL MD notified of admission to the unit. Orders received. See assessment for past medical history, medications and allergies. Patient and/or family oriented to unit. [address] visitation policy reviewed. Clothing/patient valuable form completed. DAKOTA SHEIKH
[2019-03-18] MEDS ORDERED: TRAMADOL HCL50 MG PO (12:02)
--- NOTE | 2019-03-18 14:24 | NUR ---
SPOKE W DR CHRISTOPHER NEW ORDERS WERE GIVEN
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
[2019-03-18 16:00] VITALS: BP 124/55
[2019-03-18 20:00] VITALS: BP 123/62
--- NOTE | 2019-03-18 20:35 | NUR ---
PATIENT ASSESSMENT COMPLETED WITHOUT INCIDENT. PATIENT NOTED TO BE TALKING TO PERSONS THAT ONLY SHE COULD SEE, CALLING OUT TO PERSONS THAT WERE NOT IN THE ROOM, AGGITATED, ANXIOUS AND CONFUSED. PATIENT DID HAVE BRIEF MOMENTS OF LUCIDITY. MONITOR INTACT. IV INFUSING WITHOUT INCIDENT. PATIENT REPOSITIONED FOR COMFORT. SLING TO RIGHT ARM INTACT. CALL LIGHT WITHIN REACH, WILL CONTINUE TO MONITOR.
[2019-03-19] VITALS: BP 153/71
[2019-03-19 08:00] VITALS: BP 156/80
--- NOTE | 2019-03-19 09:00 | NUR ---
Embossing Press Operator in to see patient. She is short term at [facility] and plans to return there upon discharge. She has been working with PT/OT at [facility]. Awaiting Dr. Vieira to see if patient will be able to be admitted to [facility].
--- NOTE | 2019-03-19 09:30 | NUR ---
Dr. Vieira saw patient and has added medication to her regime. When medically stable she will be discharged to [facility]. operations planner following.
[2019-03-19 11:50] LABS: VITAMIN D, 25-HYDROXY 81.3 ng/mL (30-100)
[2019-03-19 12:00] VITALS: BP 140/80
[2019-03-19 12:25] LABS: BILIRUBIN NEGATIVE (NEGATIVE); BLOOD NEGATIVE (NEGATIVE); CLARITY SL CLOUDY (CLEAR); COLOR YELLOW (YELLOW); GLUCOSE NEGATIVE (NEGATIVE); KETONE NEGATIVE (NEGATIVE); LEUKO ESTERASE TRACE (NEGATIVE); NITRITE NEGATIVE (NEGATIVE); SPECIFIC GRAVITY 1.015 (1.005-1.030)
[2019-03-19 12:47] LABS: BACTERIA 4+
[2019-03-19 12:48] LABS: YEAST 2+
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
--- NOTE | 2019-03-19 14:44 | NUR ---
Patient comes from [facility] short term care; patient would like to return, waiting on a decision from [facility] whether or not they can accept her back due to her hallucinations and confusion.
--- NOTE | 2019-03-19 15:02 | NUR ---
PHYSICAL THERAPY Coby completed pt with moderate level of complexity 80156 recomend SNF at discharge. PT to work on transfers,amb, strengthening, balance, safety. Nuha Wagoner PT
[2019-03-19 16:00] VITALS: BP 153/79
[2019-03-19 20:00] VITALS: BP 92/56
[2019-03-19 20:15] VITALS: BP 100/58
--- NOTE | 2019-03-19 21:28 | NUR ---
SPOKE TO REGARDING PATIENT'S BLOOD PRESSURE 100/58 MANUALLY AND COREG SCHEDULED FOR 2200. INSTRUCTED TO CONSULT CARDIOLOGY-'S GROUP.
--- NOTE | 2019-03-19 21:34 | NUR ---
'S ANSWERING SERVICE CALLED REGARDING CONSULT. MESSAGE LEFT PER INSTRUCTION WITH CALL BACK NUMBER.
--- NOTE | 2019-03-19 21:57 | NUR ---
NO CALL BACK FROM CARDIOLOGY SO FAR. RN PAGED ANSWERING SERVICE AGAIN. MESSAGE LEFT REQUESTING CALL BACK.
--- NOTE | 2019-03-19 22:02 | NUR ---
CALLED BACK. DISCUSSED CONSULT INFORMATION, CURRENT VITAL SIGNS, AND MEDICATIONS GIVEN/DUE TO BE GIVEN. PER , ORDER STAT EKG TONIGHT AND HOLD 2200 DOSE OF COREG. STATES HE WILL ADDRESS MEDICATION ADJUSTMENTS TOMORROW AFTER SEEING THE PATIENT.
[2019-03-20] VITALS: BP 134/69
--- NOTE | 2019-03-20 05:00 | NUR ---
PT TOOK PILL WITHOUT DIFFICULTY. PT IS STILL HALLUCINATING, YELLING AT "ONORFE OR SELF" TO "GET IN HERE WITH MEBRITTANYW." RN ATTEMPTED TO EXPLAIN THAT ONOFRE AND/OR SELF ARE NOT HERE. PT DISAGREES, STATING SHE JUST SAW THEM. RN ATTEMPTED TO REORIENT PT WITHOUT SUCCESS. PT REPOSITIONED IN BED FOR COMFORT. SIDE RAILS UP X3. BED ALARM INTACT. CALL LIGHT IN REACH.
[2019-03-20] MEDS ORDERED: RISPERIDONE0.5 MG PO (08:20)
[2019-03-20] MEDS ORDERED: CARVEDILOL3.125 MG PO (08:20)
[2019-03-20] MEDS ORDERED: ELIQUIS5 M1 PO (08:20)
--- NOTE | 2019-03-20 08:20 | NUR ---
Notified Janie in the [facility] regarding Dr. Blair' request for Dr. Vieira to see patient again for visual and auditory hallucinations. Janie states she will pass the message on to Dr. Vieira.
--- NOTE | 2019-03-20 10:25 | NUR ---
OT NOTE Pt was seen this A.M. 1:1 for 20 minute OT session. Upon arrival pt was supine in bed talking of the "rats in her room that are all over the place." Pt identified by name and and had no complaints at this time. Pt transferred supine to sit EOB with Shorty. While sitting EOB pt's sling on her RUE was readjusted due to being off. Challenged pt's dynamic sitting balance needed for increased I in self care tasks and functional transfers. While weight shifting, crossing midline, and reaching over all planes pt was able to maintain F- sitting balance. Pt could only tolerate for a few minutes at a time due to becoming dizzy. Attempted to educate pt on visual fixation technique however she was unable to process the commands. After aprox 3 minutes pt stated she felt better. Pt then completed multiple sit to stand transfers from bed level with Shorty. Challenged pt's static standing tolerance needed for increased I in self care tasks and functional trasnfers. Pt was able to tolerate aprox 60 seconds before needing to sit to due LOB forwards from feeling dizzy. Pt transferred back into bed sit to supine with Shorty. There she was left with call light in hand, tray table in place, and bed alarm activated for safety. Continue with rec D/C plan to return to SNF. DREA Bernardo/Anup
--- NOTE | 2019-03-20 11:13 | NUR ---
PHYSICAL THERAPY Patient presented to therapy in supine with head of bed slightly elevated and bed alarm activated. Patient appears to be hallucinating conplaining about rats in the room. Patient gives informed consent for treatment. Patient was identified by name and on wristband. Patient transferred supine to sitting at EOB with SBA. Patient is non-wt bearing on R UE. Patient SAT ON EOB WITH SOME MILD DIZZINESS. Patient recovered from the dizziness within a minute. Patient sit to stand from EOB with CGA X 2. Patient stood at EOB for 2 minutes total with SBA to CGA. Patient had mild dizziness during standing. Patient attempted ambulation with TRUCK BRACER X 2 but became weak and dizzy upon taking 2 steps. Patient sat on EOB with MIN A X 2. Patient unable to ambulate due to weakness and dizziness. Patient sat on EOB and dizziness alleviated within a couple minutes. Patient performed 5 Xs sit to stands in 26 seconds from the EOB with SBA. Patient transferred back to supine in bed with SBA. Patient moved up to head of bed with sheet transfer and MAX A X 2. Patient was left in supine in bed with head of bed elevated, call light within reach and bed alarm activated. Patient was 1:1 with this MANAGER SAFE for 20 minutes total. KATHIA BURGOS MANAGER SAFE
[2019-03-20 12:00] VITALS: BP 140/76
[2019-03-20 16:00] VITALS: BP 117/76
--- NOTE | 2019-03-20 16:58 | NUR ---
[facility] Discharge instructions reviewed with patient/family. Patient receptive and verbalizes understanding. Follow-up care arranged. Written instructions given to patient/family. YINKA NOEL
--- NOTE | 2019-03-21 07:45 | NUR ---
OCCUPATIONAL THERAPY CO-SIGN I approve of the Occupational Therapy notes written above. SHAVON URBANO OTR/Anup
== END 2019-03-20 17:17 | disposition home health service (06) | DRG 308 ==
LOC: ED 10:15 → 4E 11:34
PROVIDERS: Emergency Medicine; Psychiatry & Neurology Psychiatry; ADMIT Internal Medicine
DX: I48.21 Permanent atrial fibrillation (principal); G93.41 Metabolic encephalopathy; F23 Brief psychotic disorder; F33.2 Major depressive disorder, recurrent severe without psychotic features; I50.22 Chronic systolic (congestive) heart failure; E03.9 Hypothyroidism, unspecified; R29.6 Repeated falls; R62.7 Adult failure to thrive; Z66 Do not resuscitate; Z51.5 Encounter for palliative care; Z88.0 Allergy status to penicillin; Z83.3 Family history of diabetes mellitus; Z79.01 Long term (current) use of anticoagulants; I69.344 Monoplegia of lower limb following cerebral infarction affecting left non-dominant side

== ENCOUNTER 2019-03-20 16:18 | Inpatient (IN) | payer MEDICARE ==
[~2019-03-20] VITALS: Ht 172.7 cm; Wt 66.2 kg
[~2019-03-20 16:18] MED LIST changes: +CARVEDILOL3.125 MG PO; +ELIQUIS5 M1 PO; +RISPERIDONE0.5 MG PO
--- NOTE | 2019-03-20 17:00 | NUR ---
IKEBIGG Jai a 73 year old F admitted via wheel chair from the ADMITTING as a voluntary admission BY MEGAN. Arrived on unit at 1700. ALLERGIES: PCN. Vital signs are: [id number] 153/83. The client signed the following forms with stated understanding: Authorization For The Release of Medical Information, Clothing List, Consent to Voluntary Admission and Hospitalization, Consent and Release Forms/Receipt of Rights, Acknowledgement of Advance Directive Information, Behavioral Health Consent Form, and Informed Consent of Medications. Admitted under the services of Dr. JORDY SELF,[facility]. A search was conducted and hazardous articles were removed. Client was oriented to the unit. JEFF MOSER
[2019-03-20 17:13] VITALS: BP 153/83
[2019-03-20 17:37] VITALS: BP 153/83
--- NOTE | 2019-03-20 18:10 | NUR ---
DR CHRISTOPHER CALLED AND LEFT MESSAGE TO CALL BACK REGARDING NEW ADMISSION.
--- NOTE | 2019-03-20 18:50 | NUR ---
DR. MONTERO NOTIFIED OF NEW ADMISSION, REVIEW MEDICAL MEDICATIONS AND AREA NOTED TO UNDER BILATERAL BREAST. NEW ORDER FOR NYSTATIN POWDER UNDER BREAST TOPICAL TID. ORDER IN PLACE. PATIENT WILL BE UNDER THE CARE OF DR. SHAW.
[2019-03-20 20:00] VITALS: BP 112/58
--- NOTE | 2019-03-20 20:36 | NUR ---
EVENING/MUSIC/HYMNS PT IN BED SLEEPING AT THIS TIME. PT JUST ADMITTED TO UNIT AND WILL BE ENCOURAGED TO ATTEND AND PARTICIPATE IN GROUP IN THE AM. STAFF WILL COMPLETE ACTIVITY ASSESSMENT SOMETIME TOMORROW.
--- NOTE | 2019-03-20 23:08 | NUR ---
EASILY AWAKENED FOR MEDICATION. FLUIDS PROVIDED. DENIES PAIN AT THIS TIME. REINFORCED TO CALL IF SHE DEVELOPES PAIN. DID AGREE TO EAT CUP OF APPLESAUCE WITH MEDICATIONS. MENTAL HEALTH WORKER IN ROOM TO COMPLETE ORAL CARE. WILL ENCOURAGE FLUID MUCH POSSIABLE FOR SEVERELY DRY MOUTH.
--- NOTE | 2019-03-21 04:48 | NUR ---
24 HR chart check completed.
--- NOTE | 2019-03-21 06:17 | NUR ---
SLEPT WELL ALL SHIFT. HAS NOT VOIDED THIS SHIFT
--- NOTE | 2019-03-21 06:32 | NUR ---
CLIENT HASN'T VOIDED THIS SHIFT. ENCOURAGING FLUIDS. TRIED TOILETING WITHOUT SUCCESS. STATES SHE FEELS A LITTLE PRESSURE. BLADDER SCAN DONE. 545ML. WILL CONTACT PCP
[2019-03-21 07:36] VITALS: BP 110/62
--- NOTE | 2019-03-21 07:40 | NUR ---
Nursing screen and Occupational Therapy referral received. Patient was on medical floor and has been transferred to [facility] with new OT referral. Leila Medina OTr/Anup
--- NOTE | 2019-03-21 07:58 | NUR ---
PHYSICAL THERAPY Screen received as well as orders for Phyiscal Therapy will follow, thank you Nuha Wagoner PT
[2019-03-21 08:09] LABS: ALBUMIN 2.6 gm/dl (3.1-4.5); ALKALINE PHOSPHATASE 102 U/L (45-117); BUN 8 mg/dl (7-24); CHLORIDE 109 mmol/L (98-107); CHOLESTEROL 166 mg/dL (<200); HDL CHOLESTEROL 39 mg/dl (40-60); LDL CHOLESTEROL 109 mg/dL (9-159); POTASSIUM 3.7 mmol/L (3.5-5.1); SGOT/AST 33 IU/L (3-35); SGPT/ALT 33 U/L (12-78); SODIUM 143 mmol/L (136-145); TOTAL PROTEIN 5.8 gm/dL (6.4-8.2); TRIGLYCERIDES 90 mg/dl (<150); VLDL CHOLESTEROL 18 mg/dL (6-40)
--- NOTE | 2019-03-21 08:15 | NUR ---
Treatment Plan meeting was held with Dr. Vieira, RN, AT, [facility] and Vice President [employer]idential [employer] in attendance. Plan for discharge next week. Pt. came to [facility] from [facility]. Spoke with Joyce at [facility] this morning and she is not a bed hold. Pt. was short Term and plan was to discharge patient home with Home Health.
--- NOTE | 2019-03-21 09:20 | NUR ---
Occupational Therapy evaluation completed on 3N since transfer to Behavioral Health unit. Upon arrival on the unit patient was being fed breakfast by staff. Staff reported that patient was having difficulty swallowing and that a speech consult was ordered. OTR educated staff in proper head/chin tuck position for safe feeding and shared with staff that patient was min assist for set up and was then was able to self feed 03/19/19. Patient was able to feed self with min assist for stabbing food d/t height of table and patient was able to hold cup with left hand but she did cough after taking a small drink. Recommend OT per pOC and SNF upon d/c and Speech consult for swallow. Thank you. Leila Medina OTR/ede
--- NOTE | 2019-03-21 09:30 | NUR ---
PT VOIDED WITHOUT ISSUE, NO C/O OF PAIN OR DISTRESS NOTED.
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
--- NOTE | 2019-03-21 10:21 | NUR ---
PT HAD SMALL EMESIS OF UNDIGESTED APPLESAUCE. WHEN ASKED IF PT WAS HAVING ANY PAIN SHE STATED "JUST A LITTLE CRAMPING THATS ALL AND IM HOT". VS =[id number]/63-97%RA. BS 156. NO FURTHER S/S OF DISTRESS NOTED.
--- NOTE | 2019-03-21 10:29 | NUR ---
SPOKE WITH DR. SHAW AT [phone], PER DR. SHAW GO AHEAD AND ORDER PO ZOFRAN 8MG Q6 HOURS NEEDED. CONVERSATION WITNESSED BY 2ND RN SHIRA.
--- NOTE | 2019-03-21 10:49 | NUR ---
DR. SHAW ON UNIT TO ASSESS PT, UPDATE PROVIDED. PER DR. SHAW CALL DR. LEDESMA'S OFFICE AND SEE IF THEY WANT RECONSULTED ON HER OR JUST GIVE VERBAL ORDERS. PER DR. CORMIER JUST CONTINUE TO MONITOR PT BLOOD PRESSURES.
--- NOTE | 2019-03-21 12:00 | NUR ---
SPEECH PATHOLOGY Orders for dysphagia evaluation received and chart review completed. Reports indicate patient has been coughing with liquids. Clinician arrived on U for assessment. Clinician was informed by nurse that patient has been ill and vomiting this morning. Patient's lunch was present but she did not feel up to eating. Transport then arrived to take patient for x-rays. Will attempt assessment again later. Thank you for this referral. BELEN PIPER MSCCC-PUBLIC HEALTH DIETITIAN
--- NOTE | 2019-03-21 12:41 | NUR ---
AM GROUP PT ATTENDED MORNING GROUP THERAPY AND ATTEMPTED TO PARTICIPATE BY LOOKING AT MAGAZINES BUT WAS ILL AND HAD TO BE REMOVED FROM THE DAYROOM. PT HAS A BROKEN RIGHT ARM AND IS UNABLE TO PARTICIPATE IN MANY OF THE ACTIVITIES. PT EXPRESSED NO VISUAL HALLUCINATIONS WHILE IN GROUP.
--- NOTE | 2019-03-21 12:49 | NUR ---
DR. LEDESMA ON UNIT TO ASSESS PT, UPDATE PROVIDED. PER DR. LEDESMA, THE PT NO LONGER NEEDS TO WEAR THE SLING AND DR. LEDESMA WILL PUT ORDERS IN FOR PHYSICAL THERAPY.
--- NOTE | 2019-03-21 13:38 | NUR ---
SPEECH PATHOLOGY Clinician arrived on U to reattempt swallowing assessment. Patient was in quiet room with a basin on her lap. She reported that she still felt nauseaus and politely declined assessment at this time, stating she did not feel up to eating anything. Clinician spoke with patient's nurse who confirmed patient's reports of illness. Will continue and complete assessment tomorrow. Thank you for this referral. BELEN PIPER MSCCC-DISTRIBUTION TRANSFORMER ASSEMBLER
--- NOTE | 2019-03-21 15:24 | NUR ---
Clinical Updates faxed to [facility] Attn: [phone].
--- NOTE | 2019-03-21 15:47 | NUR ---
PM GROUP PT WAS PRESENT FOR AFTERNOON GROUP THERAPY RECLINED IN A JENNIFER CHAIR HOLDING A BASIN SHE WAS STILL SICK. PT WAS QUIET AND RESPONDED WHEN ASKED IF SHE NEEDED ANYTHING. PT EXPRESSED NO PARANOID IDEATIONS OR HALLUCINATIONS WHILE IN GROUP.
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
--- NOTE | 2019-03-21 19:53 | NUR ---
DR. MAIN MADE AWARE OF PT HR 120 AND BP 108/62. STATES TO GIVE ROUTINE HS MEDS INCLUDING COREG 3.125 AND ENCOURAGE PO FLUIDS. RECHECK HR AND BP IN 30-60MIN
[2019-03-21 19:57] VITALS: BP 108/62
--- NOTE | 2019-03-21 20:36 | NUR ---
PT IS DENYING HALLUCINATIONS AT THIS TIME. PT HAS NO ADVERSE BEHAVIORS. PT ONLY STATES "I'M OKAY HONEY, I AM JUST SAYING ALL MY PRAYERS THAT IF I DO EVERYTHING I AM SUPPOSED TO DO, I WON'T HAVE TO HAVE SURGERY ON THIS ARM". PT ALSO STATES THAT "THE BLOOD THINNER I AM ON GIVES ME BRUISES IF YOU JUST TOUCH ME". PT REASSURED OF SAFETY. WILL CONTINUE TO MONITOR PT FOR HALLUCINATIONS AND ADVERSE MOODS. WILL CONTINUE TO MONITOR Q15 MIN, MAINTAIN FALLING STAR PROGRAM
--- NOTE | 2019-03-21 21:24 | NUR ---
dr. ott made aware of pt hr 120 and bp 129/65. states to "keep an eye on her" and that he will be on unit in the am.
--- NOTE | 2019-03-22 03:48 | NUR ---
24 HR chart check completed.
--- NOTE | 2019-03-22 07:11 | NUR ---
PHYSICAL THERAPY Physical therapy evaluation completed, 3N. Full details to follow. Pt presents as a high complexity after evaluation/chart review, [address]. PT to work on strength, balance, gait, bed mobility, transfers and safety. Recommending SNF at discharge. thank you Ele Berger, PT, DPT
--- NOTE | 2019-03-22 07:13 | NUR ---
OT orders received for RUE AROM shoulder, elbow,wrist and hand for healing right proximal humerus. OT goals for RUE ammended as follows: Improved AROM RUEto 50% Shoulder ROM and full distal ROM for participation in ADLSs. With tx plan to include AAROM,gentle AROM and therapeutic activities, ADLs. Leila Medina OTR/L
--- NOTE | 2019-03-22 07:20 | NUR ---
OT NOTE Pt was seen this A.M. 1:1 for 29 minute OT session with DRILLER MULTIPLE SPINDLE and nursing staff present for observation only. Upon arrival pt was sitting upright in the celeste chair. Pt identified by name and and had complaints of 7/10 R shoulder pain and a headache. Pt was taken out to the hallway where she completed multiple sit to stand transfers from chair level with Shorty. Challenged pt's static standing tolerance needed for increased I in self care tasks and functional transfers. Pt was able to tolerate aprox 10 seconds before having to sit due to feeling dizzy and becoming unsteady. Pt's breakfast tray then arrived which she required Shorty for set up of tray for assist with opening juices and packets. Pt was then able to manage all utensils and drinks with use of her L hand with supervision. Pt was left sitting upright in the celeste chair in the dining room under [facility] staff supervision. Continue with rec D/C plan to return to [facility] SNF. DREA Bernardo/Anup
[2019-03-22 07:30] VITALS: BP 118/65
--- NOTE | 2019-03-22 09:45 | NUR ---
DR. SPENCE ON UNIT TO ASSESS PT, REQUESTING ORTHOSTATIC BP. LAY-109/61, HR116 SIT-82/51 HR103 STAND-99/[address] SHAW.
--- NOTE | 2019-03-22 10:45 | NUR ---
DR. SHAW ON UNIT TO ASSESS PT, UPDATE PROVIDED. NEW ORDERS RECEIVED.
--- NOTE | 2019-03-22 11:44 | NUR ---
AM GROUP PT DID NOT ATTEND MORNING GROUP THERAPY. PT WAS IN BED SLEEPING.
--- NOTE | 2019-03-22 11:54 | NUR ---
Spoke with Joyce at [facility]cerning Therapy Recommendations for return to SNF and Faxed Updated Clinical Information to [facility] Attn: Joyce [phone]. Plan is to discharge next and Joyce states "Unsure if they will have a bed at that time".
--- NOTE | 2019-03-22 12:06 | NUR ---
SPEECH PATHOLOGY Clinical swallowing evaluation completed as per orders. This was ordered yesterday and attempted however unable to be completed as patient was ill. Assessment was completed today during lunchtime meal. Patient did not c/o nausea during today's encounter but was noted to be weak in general. She is ordered a soft diet and thin liquid however all food items on her lunch tray today were of pureed consistency, including tomato soup and ice cream. Patient fed herself and displayed no overt oral or pharyngeal swallowing difficulty. She took liquids by straw with no cough or no c/o globus. Recommend patient remain on soft diet and thin liquids with use of universal safe swallow precautions. Follow up therapy is recommended to ensure safety with soft foods, education and adherence to safety precautions. Results and kimberly. were shared with patient and her nurse and they verbalized understanding. Refer to report in [employer] for further information. Thank you for this referral. BELEN IPPER MSCCC-MARKET DEVELOPMENT EXECUTIVE
--- NOTE | 2019-03-22 13:40 | NUR ---
22G IV PLACED IN LEFT HAND BY Tobi CHAPARRO RN. IV RUNNING 250 ML/HR PER DR. DELGADO ORDER. PT TOLERATING WITHOUT ISSUE.
--- NOTE | 2019-03-22 15:15 | NUR ---
DR. HURT CALLED TO REQUIRE ABOUT PT STAT EKG, ADVISED THAT OT HAS NOT BEEN COMPLETED YET AND I WILL CALL EKG TO INQUIRE ABOUT IT.
--- NOTE | 2019-03-22 15:24 | NUR ---
CALLED DR. HOLLIS'S OFFICE AND ADVISDED OF CONSULT NEEDED FOR COUNSELING.
--- NOTE | 2019-03-22 15:44 | NUR ---
PM GROUP PT WAS PRESENT FOR AFTERNOON GROUP THERAPY AND PARTICIPATED BY SOCIALIZING WITH NURSING STUDENTS. PT HAD IV RUNNING AND HAS A BROKEN RIGHT ARM AND IS UNABLE TO PARTICIPATE IN MOST ACTIVITES. PT EXPRESSED NO HALLUCINATIONS OR ANXIETY WHILE IN GROUP
--- NOTE | 2019-03-22 16:25 | NUR ---
DR. CARRILLO ON UNIT TO ASSESS PT, UPDATE PROVIDED. NO FURTHER ORDERS AT THIS TIME.
--- NOTE | 2019-03-22 17:39 | NUR ---
IV DISCONTINUED AT THIS TIME PER ORDERS.
--- NOTE | 2019-03-22 18:12 | NUR ---
P: PT MOOD IS DEPRESSED. I: PROVIDE EMOTIONAL SUPPORT AND 1:1 FOR PT TO VOICE FEELINGS, ENCOURAGE MED COMPLIANCE AND PROVIDE MED EDUCATION R: PT ALERT TO PERSON, PLACE AND TIME. PT MED COMPLIANT WITHOUT DIFFICULTY, MED EDUCATION PROVIDED. PT MORE INTERACTIVE WITH STAFF AND STUDENTS TODAY. PT UP TO GERICHAIR AT THIS TIME, WITH AMBULATE SHORT DISTANCES WITH 1 STAFF ASSIST. PT CONTINENT OF BOWEL AND BLADDER. PT DENIES ANY SUICIDAL THOUGHTS AT THIS TIME. PT IS GOAL DIRECTED STATES "I JUST WANT TO TO GET BETTER SO I CAN GO HOME." P: MONITOR PT BEHAVIORS ON Q15 MIN SAFETY CHECKS, PROVIDE EMOTIONAL SUPPORT AND 1:1 FOR PT TO VOICE FEELINGS, ENCOURAGE GROUP PARTICIPATION AND SOCIALIZATION, ENCOURAGE MED COMPLIANCE AND PROVIDE MED EDUCATION.
[2019-03-22 19:40] VITALS: BP 121/62
--- NOTE | 2019-03-22 20:00 | NUR ---
Patient resting quietly with no c/o discomfort. Respirations easy and regular. Vital signs stable. No overt distress. KEVIN HUFF
--- NOTE | 2019-03-22 23:21 | NUR ---
PT ALERT, ORIENTED X 3. PT DENIES HALLUCINATIONS OR DELUSIONS. PT STATES SHE FEELS BETTER TODAY AFTER IV FLUIDS. DENIES DIZZINESS. MEDICATION COMPLIANT WITHOUT DIFFICULTY. PT IS PLEASANT, COOPERATIVE. SOMEWHAT WITHDRAWN TO SELF, WILL INTERACT WHEN VERBALLY CUED. Q15 MIN MONITORING PER POLICY. PT IS NOW RESTING QUIETLY IN BED. BED IN LOWEST POSITION, BED ALARM ON. PT EDUCATED RADIO RECORDER DON'T FALL.
--- NOTE | 2019-03-23 05:55 | NUR ---
pt slept past 2144
--- NOTE | 2019-03-23 07:35 | NUR ---
OT NOTE Pt was seen this A.M. 1:1 for 25 minute OT session with SHELF FILLER and nursing staff present for observation only. Upon arrival pt was supine in bed. Pt identified by name and and had complaints of 7/10 R shoulder pain. Pt transferred supine to sit EOB with Shorty for assist with UB. While sitting EOB pt doffed gown with CGA and donned shirt with Shorty for assist with donning over her RUE. Pt was educated throughout on compenstory technique for increased I. After aprox 6 minutes of sitting EOB pt had complaints of feeling dizzy. After aprox 3 minutes pt reported that she no longer felt dizzy. AROM completed to R digits and wrist over all planes for 1 X 10 and gentle AAROM completed to R elbow and shoulder over all planes of motion for 1 X 10 to increase and restore maximum functional use. Sit to stand completed from bed level with Shorty X 2 followed by standing pivot from the EOB to the celeste chair with Shorty X 2. Pt's breakfast tray arrived which she was able to complete set up with SBA and all self feeding completed with SBA while using B hands. Pt was left sitting upright in the celeste chair in the dining room under [facility] staff supervision. Continue with rec D/C plan to return to [facility] SNF. DREA Bernardo/Anup
[2019-03-23 07:48] VITALS: BP 112/62
--- NOTE | 2019-03-23 07:50 | NUR ---
Patient resting quietly with no c/o discomfort. Respirations easy and regular. Vital signs stable. No overt distress. GIVENS,ANNY
--- NOTE | 2019-03-23 08:15 | NUR ---
Treatment Plan meeting was held with Dr. Vieira, RN, ROTARY SHEAR OPERATOR-S and Assistant Librarian in attendance. Plan for discharge Tuesday-Tuesday. Updates faxed to [facility]. Joyce at [facility] states Pt. is "Not a Bed Hold" but will see if they have a bed next week. Pt. MEGAN wants her to return there to continue her Therapy.
--- NOTE | 2019-03-23 10:28 | NUR ---
Clinical Updates faxed to [facility] Attn: Joyce [phone].
--- NOTE | 2019-03-23 10:40 | NUR ---
P- MOOD APPERS DEPRESSED WITH FLAT AFFECT. HOWEVER, PT DENIES FEELING SAD OR DEPRESSED, STATES SHE IS FEELING BETTER AND IS HOPEFUL SHE WILL CONTINUE TO IMPROVE WITH RECENT MEDICATION CHANGES. I- ORIENTATION, MOOD AND BEHAVIOR ASSESSED. ASSESSED PT FOR SI/HI, INTENT OR PLAN. ASSESSED PT FOR S/S HALLUCINATIONS, PARANOIA AND/OR DELUSIONS. MEDICATIONS ADMINISTERED PER PHYSICIAN'S ORDERS. ASSISTANCE WITH ADL CARE PROVIDED NEEDED. HIGH FALL RISK PRECAUTIONS MAINTAINED. ENCOURAGED PT TO ASK FOR ASSISTANCE BEFORE ATTEMPTING TO STAND, TRANSFER FOR AMBULATE. ENCOURAGED PT TO ATTEND AND PARTICIPATE IN [facility] GROUPS AND ACTIVITIES. R- PT IS ALERT AND ORIENTED X4. MEMORY APPEARS TO BE INTACT. RESPS EASY AND EVEN ON ROOM AIR. MOOD APPEARS DEPRESSED WITH FLAT AFFECT, HOWEVER, PT DENIES FEELING DEPRESSED. STATES SHE IS FEELING BETTER AND IS HOPEFUL SHE WILL CONTINUE TO IMPROVE WITH RECENT MEDICATION CHANGES. PT DENIES SI/HI, INTENT OR PLAN. PT DENIES HALLUCINATIONS, NO RESPONSE TO INTERNAL STIMULI NOTED. NO PARANOIA OR DELUSIONS NOTED. PT IS MEDICATION COMPLIANT WITHOUT DIFFICULTY. NO DISTRESS NOTED. INTERACTIVE WITH PEERES APPROPRIATELY. NO DISTRESS NOTED. PT DENIES PAIN/DISCOMFORT. PT AGREES TO COMPLY WITH FALL RISK PRECUATIONS, EXPRESSES UNDERSTANDING OF NEED TO ASK FOR ASSISTANCE PRIOR TO ATTEMPTING TO STAND, TRANSFER OR AMBULATE D/T FALL RISK. P- PLAN TO CONTINUE CURRENT TREATMENT, CONTINUE TO MONITOR MOOD AND BEHAVIORS, PROVIDE APPROPRIATE REORIENTATION, REDIRECTION AND 1:1 NEEDED. CONTINUE TO ENCOURAGE MEDICATION COMPLIANCE WELL GROUP ATTENDANCE AND PARTICIPATION.
--- NOTE | 2019-03-23 11:11 | NUR ---
ORTHOSTATIC BLOOD PRESSURES OBTAINED AT THIS TIME PER REQUEST OF CARDIOLOGY: LYING: BP 118/76 HR 125 SITTING: BP 116/76 HR 110 STANDING: BP 98/68 HR 100 PT SYMPTOMATIC, BECAME DIZZY AND REQUIRED ASSISTANCE TO STAND SAFELY. NOTIFIED AT [phone] OF THE ABOVE WITH NO NEW ORDERS RECIEVED AT THIS TIME.
--- NOTE | 2019-03-23 12:13 | NUR ---
SPEECH PATHOLOGY Patient was seen for treatment this pm during lunchtime meal. She was seated at a table in activity room with peers. Patient was feeding herself and her tray consisted of a variety of solid foods and thin liquids. Patient had no c/o of nausea and displayed good intake. Safe tolerance of all food items was displayed. No s/s aspiration displayed during meal. Patient had no c/o globus with solids. She did endorse difficulty with large pills but stated that when taking a drink the pills went down. Patient's nurse stated that she has been eating well and was able to take pills in applesauce without difficulty. Recommend patient remain on soft diet and thin liquid with use of universal safe swallow precautions. As she is eating well and tolerating food and liquid, recommend discharge from speech services at this time. Thank you for this referral. It has been a pleasure taking part in this patient's care. BELEN PIPER MS [facility]-NATURAL RESOURCES SPECIALIST
--- NOTE | 2019-03-23 13:30 | NUR ---
ON UNIT AND ASSESED PT THIS AFTERNOON.
--- NOTE | 2019-03-23 15:08 | NUR ---
Attempted to meet with pt this afternoon but pt was sleeping soundly.
--- NOTE | 2019-03-23 15:22 | NUR ---
OCCUPATIONAL THERAPY CO-SIGN I approve of the Occupational Therapy notes written above. SHAVON URBANO OTR/Anup
[2019-03-23 19:48] VITALS: BP 118/67
--- NOTE | 2019-03-23 20:34 | NUR ---
24 HR chart check completed.
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
--- NOTE | 2019-03-24 05:55 | NUR ---
PT HAS SLEPT PAST 2199
--- NOTE | 2019-03-24 06:34 | NUR ---
PT CONTINENT OF ANOTHER SMALL BM & CONTINENT OF URINE.
--- NOTE | 2019-03-24 07:45 | NUR ---
PT AWAKE AND ALERT, RESPS EASY AND EVEN ON ROOM AIR. SEATED AT DINING ROOM TABLE AWAITING BREAKFAST AT THIS TIME. NO DISTRESS NOTED.
[2019-03-24 07:46] VITALS: BP 119/66
--- NOTE | 2019-03-24 10:27 | NUR ---
PT C/O RIGHT SHOULDER/ARM PAIN RATED 7/10. PT STATED "I JUST DON'T UNDERSTAND WHY THAT TOOK MY SLING OFF ITS NOT HEALED ALL THE WAY." EDUCATION PROVIDED. PT MEDICATED WITH TYLENOL 650 MG PO PRN PER ORDERS, WILL CONTINUE TO MONITOR.
--- NOTE | 2019-03-24 10:43 | NUR ---
GUICHO FIRE AND EXPLOSION INVESTIGATOR ON UNIT TO SEE PT AT THIS TIME, UPDATE GIVEN.
--- NOTE | 2019-03-24 11:53 | NUR ---
AM GROUP/EXERCISE/MUSIC/BRAIN GAMES PT ATTENDED AND PARTICIPATED TO BEST OF ABILITY IN ALL ACTIVITY'S. PT BECOMING TEARFUL DURING DISCUSSION. PT EXPLAINS HAVING TROUBLE WITH GRIEF. THIS STAFF AND PEER ENCOURAGING PT AT THIS TIME. PT OPEN AND RECEPTIVE. PT DID NOT EXPRESS ANY HALLUCINATIONS OR PARANOIA AT THIS TIME. PT WILL CONTINUE TO ATTEND AND PARTICIPATE IN FUTURE GROUP SESSIONS.
--- NOTE | 2019-03-24 12:00 | NUR ---
PT STATES PRN TYLENOL ADMINISTERED FOR C/O RIGHT ARM PAIN HAS BEEN EFFECTIVE. PT STATES "YEAH, THAT WORKED REALLY GOOD. I'LL JUST TAKE TYLENOL FROM NOW ON WHEN I HAVE PAIN". ENCOURAGED PT TO ASK FOR TYLENOL WHEN SHE NEEDS IT AGAIN. PT AGREED.
--- NOTE | 2019-03-24 13:13 | NUR ---
P- PT APPEARS MILDLY DEPRESSED, FLAT AFFECT, ONE PERIOD OF TEARFULNESS THIS MORNING. HIGH FALL RISK. I- ORIENTATION, MOOD AND BEHAVIOR ASSESSED. ASSESSE DPT FOR SI/HI, INTENT OR PLAN. ASSESSED PT FOR S/S HALLUCINATIONS, PARANOIA AND/OR DELUSIONS. MEDICATIONS ADMINISTERED PER PHYSICIAN'S ORDERS. ASSISTANCE WITH ADL CARE PROVIDED NEEDED. ENCOURAGED PT TO ATTEND AND PARTICIPATE IN [facility]ER MILIEU GROUPS AND ACTIVITIES. HIGH FALL RISK PRECAUTIONS MAINTAINED AND PT EDUCATION PROVIDED REGARDING IMPORTANCE OF ADHERING TO THESE MEASURES TO ENSURE PT SAFETY. R- PT IS ALERT AND ORIENTED X4. MEMORY APPEARS TO BE INTACT. RESPS EASY AND EVEN ON ROOM AIR. MOOD APPEARS MILDLY DEPRESSED WITH FLAT AFFECT, ONE PERIOD OF TEARFULNESS THIS MORNING. SPEECH IS SOFT, COHERENT, ABLE TO MAKE NEEDS KNOWN WITHOUT DIFFICULTY. POSITIVE PEER INTERACTIONS NOTED. PT DENIES SI/HI, INTENT OR PLAN. PT DENIES HALLUCINATIONS, NO RESPONSE TO INTERNAL STIMULI NOTED. NO PARANOIA OR DELUSIONS NOTED. PT IS MEDICATION COMPLIANT WITHOUT DIFFICULTY. COMPLIANT WITH FALL RISK PRECAUTIONS, VERBALIZES UNDERSTANDING OF NEED TO ASK FOR ASSISTANCE BEFORE ATTEMPTING TO STAND, TRANSFER OR AMBULATE TO PREVENT FALLS. NO DISTRESS NOTED. P- PLAN TO CONTINUE CURRENT TREATMENT, CONTINUE TO MONITOR MOOD AND BEHAVIORS, PROVIDE APPROPRIATE REORIENTATION, REDIRECTION AND 1:1 NEEDED. CONTINUE TO ENCOURAGE MEDICATION COMPLIANCE WELL GROUP ATTENDANCE AND PARTICIPATION.
--- NOTE | 2019-03-24 15:42 | NUR ---
PM GROUP/CRAFTS/LEISURE PT ATTENDED AND PARTICIPATED IN GROUP. PT PLEASANT AND ON TASK BUT ONLY ABLE TO DO THINGS TO A CERTAIN EXTENT DUE TO BROKEN ARM. PT 1:1 DISCUSSION ABOUT AND MANY OF THE PT'S STRUGGLES. PT DID NOT EXPRESS ANY PARANOIA OR HALLUCINATIONS AT THIS TIME AND WILL CONTINUE TO ATTEND AN DPARTICIPATE TO BEST OF PT ABILITY.
[2019-03-24 19:47] VITALS: BP 120/70
--- NOTE | 2019-03-24 19:55 | NUR ---
24 HR chart check completed.
--- NOTE | 2019-03-24 20:55 | NUR ---
P-MILDLY DEPRESSED, HIGH FALL RISK I-ENCOURAGE VENTILATION OF FEELINGS & PROVIDE EMOTIONAL SUPPORT. ASSESS STRESSORS, ADMINISTER MEDS, MONITOR SLEEP. MONITOR PT FOR HIGH FALL RISK R-PT IS ALERT & ORIENTED X 4. DENIES FEELING DEPRESSED BUT APPEARS MILDY DEPRESSED WITH A FLAT AFFECT. DOES STATE THAT SHE IS FEELING BETTER. REMINDED PT TO WAIT FOR ASSISTANCE & SHE STATED UNDERSTANDING & HAS BEEN COMPLIANT. HAS BEEN SITTING IN A WHEELCHAIR. ATE SNACK. DENIES SUICIDAL FEELINGS. DENIES ANY SENSORY DISTURBANCE & NONE IS EVIDENT. MAINTAINS GOOD EYE CONTACT & IS APPROPRIATE WITH CONVERSATION. MEDICATIONS REVIEWED & PT STATED A FAIR UNDERSTANDING. 1 STAFF ASSIST PROVIDED FOR TRANSFERS & HELP WITH ADLS. GIVEN A SHOWER. P-CONTINUE TO MONITOR & PROVIDE PHYSICAL ASSISTANCE & EMOTIONAL SUPPORT NEEDED.
--- NOTE | 2019-03-25 05:43 | NUR ---
PT HAS SLEPT PAST 2129
[2019-03-25 07:46] VITALS: BP 125/58
--- NOTE | 2019-03-25 09:38 | NUR ---
P-DEPRESSED MOOD I-REDIRECTION WITH 1:1 THERAPEUTIC INTERVENTIONS. EDUCATE AND ENCOURAGE MEDICATION COMPLIANCE R-PATIENT REQUESTING TO STAY IN BED THIS AM DUE TO INCREASED PAIN IN RIGHT SHOULDER. PATIENT MEDICATED WITH TYLENOL 650MG FOR COMPLAINT OF RIGHT SHOULDER PAIN WITH PAIN 8/10 ON PAIN SCALE. PATIENT WITH VERY LIMITED ROM TO RIGHT ARM. PATIENT MEDICATION COMPLIANT. TYLENOL 650MG EFFECTIVE AT THIS TIME WHILE PATIENT RESTING IN BED P-CONTINUE TO EDUCATE AND ENCOURAGE MEDICATION COMPLIANCE, ENCOURAGE GROUP THERAPY WHILE AWAKE
--- NOTE | 2019-03-25 16:12 | NUR ---
Shift chart check completed.
--- NOTE | 2019-03-25 17:30 | NUR ---
DR SHAW ON UNIT TO SEE PATIENT
[2019-03-25 19:52] VITALS: BP 124/65
--- NOTE | 2019-03-25 21:38 | NUR ---
PT COMPLAINT OF PAIN TO HER RIGHT SHOULDER, REQUESTED TYLENOL WHICH WAS GIVEN AT [employer]. PLEASANT COOPERATIVE INTERACTIVE AND MEDICATION COMPLIANT. PT STATED THAT SHE FINALLY FEELS BACK TO HERSELF AND FOR A WHILE SHE COULDN'T BELIEVE HOW "CRAZY" SHE WAS, UPON DISCUSSING WITH HER ABOUT MEDICATIONS AND CHANGES THAT HAVE OCCURED SHE STATED SHE DIDN'T WANT TO BURDEN HER FRIENDS WITH HER PROBLEMS BUT IS GLAD SHE GOT HELP. NO HALLUCINATIONS OR DELUSIONS NOTED OR REPORTED FROM PT. NO SI/HI, PT REQUESTING TO GO TO BED AT THIS TIME. ALERT X4 WITH AWARENESS OF MEDICATIONS AND SITUATIONS. CONTINUE TO MONITOR 15 MIN CHECKS AND FALL PRECAUTIONS WITH ALERTS OF CALL DON'T FALL
--- NOTE | 2019-03-26 05:17 | NUR ---
PT SLEPT 7+ HOURS IN BED
--- NOTE | 2019-03-26 05:20 | NUR ---
24 HR chart check completed.
--- NOTE | 2019-03-26 07:50 | NUR ---
OT NOTE Pt was seen this A.M. 1:1 for 24 minute OT session with nursing staff present for observation only. Upon arrival pt was supine in bed asleep. Pt was easily aroused and identified by name and . Pt had complaints of 9/10 R shoulder pain. Pt transferred supine to sit EOB with Shorty for assist with UB. Upon inital rise pt had complaints of feeling dizzy. Pt was educated on visual fixation and relaxation techniques, after aprox 2 minutes pt had no further complaints. While sitting EOB AROM was completed to RUE wrist and digits over all planes and AAROM completed to R elbow and shoulder joint over all planes for 1 X 10 to point of tolerance. Sit to stand then completed from the EOB with Shorty followed by standing pivot from EOB to the w/c with Shorty CONFERENCE SPECIALIST. Pt was then taken to breakfast which she required Shorty for set up of tray and completed self feeding with supervision. Pt completed all self feeding task with her LUE; however, she did use her RUE for assist. Pt was left sitting upright in her w/c in the dining room under [facility] staff supervision. Continue with rec D/C plan to return to [facility] SNF. NITO Bernardo
[2019-03-26 07:54] VITALS: BP 132/56
--- NOTE | 2019-03-26 08:56 | NUR ---
DR. MONTERO NOTIFIED OF MANUAL BP 78/40 WITH COMPLAINTS OF BEING DIZZY. VERABL ORDER TO CALL WIND FARM ENGINEER. OTHRO BP'S OBTAINING. PATIENT ASSIST BY 2 STAFF MEMBERS. LAYING DOWN 80/62, SITTING 98/68 AND STANDING 86/50. PATIENT ASSISTED SLOWLY WITH POSITIONING. STILL HAVING DIZZINESS. DR. GOLDBERG NOTIFIED. VERBAL ORDERS. INCREASE MIDODRINE TO 5MG TID AND 500CC NORMAL SALINE BOLUS OVER 30 MINUTES, RECHECK BP IN A COUPLE OF HOURS AND CALL BACK WITH UPDATE.
--- NOTE | 2019-03-26 09:39 | NUR ---
PHYSICAL THERAPY Patient is lying down now and NURSING - RN JEFF says she is dizzy and needs to rest right now. No therapy provided for this reason this morning. KATHIA BURGOS RECESSING MACHINE OPERATOR
--- NOTE | 2019-03-26 10:30 | NUR ---
IV STARTED IN LEFT ARM, 22 GUAGE, TOLERATED WELL. 0.9%NS INFUSING 500CC IN 30 MINUTES. TOLERATED WELL.
--- NOTE | 2019-03-26 11:03 | NUR ---
Notified Joyce at [facility] of Plans to discharge Tuesday/Tue. Faxed Clinical Updates. Orders received from Dr. Vieira for SNF at Discharge for PT/OT and Speech, Faxed Copy of Order to [facility] [phone].
--- NOTE | 2019-03-26 11:40 | NUR ---
AM GROUP PT DID NOT ATTEND MORNING GROUP THERAPY. PT WAS IN BED RESTING.
--- NOTE | 2019-03-26 12:34 | NUR ---
PATIENT ASSISTED TO BED AFTER LUNCH. COMPLAINING OF BEIND DIZZY, EVERYTHING IS SPINNING, COMPLAINING OF BEING NAUSOUS. RECHECKED MANUAL BP. LAYING 122/70, APICAL 100, SITTING BP 108/68. DR GOLDBERG ON UNIT TO ASSESS PATIENT AND UPDATED. VERBAL ORDER FOR SAPPHIRE PINTO. OKAY TO GIVE DIGOXIN ORDERED.
--- NOTE | 2019-03-26 14:22 | NUR ---
P: DEPRESSED MOOD WITH FLAT AFFECT. HIGH FALL RISK. COMPLAINTS OF FEELING DIZZY/NAUSOUS WITH REPOSTIONING. I: ONE ON ONE FOR EMOTIONAL SUPPORT, ORTHO STATIC BP, ATTRACTIONS ASSOCIATE NOTIFIED, 1-2 PERSON ASSIST WITH ACTIVITIES OF DAILY LIVING. MONITOR MEAL/DRINK INTAKES. IV BOLUS COMPLETE ORDERED. DR. GOLDBERG ON UNIT TO ASSESS PATIENT. ENCOURAGE PATIENT TO CHANGE POSITIONS SLOWLY DUE TO ORTHO STATIC BP'S. ENCOURAGE PATIENT TO CONTINUE DRINKING FLUIDS. OFFERED GINGERALE OR POPSICKLE. R: EFFECTIVE. PATIENT IS ALERT TO PERSON, PLACE, TIME AND SITUATION; ABLE TO VOICE NEEDS. DENIES ANY HALLUCINATIONS, DELUSIONS, HI/SI OR PAIN. 1-2 PERSON ASSIST WITH ACTIVITIES OF DAILY LIVING, CONTINTENT OF BOWEL AND BLADDER. SET UP FOR MEALS, INTAKES ARE IMPROVING. MEDICATION COMPLAINT WITH EDUCATION PROVIDED. Q 15 MINUTE SAFETY CHECKS MAINTAINED. P: CONITINUE TO MONITOR FOR HALLUCINATIONS, DELUSIONS, DIZZINESS, BLOOD PRESSURES AND INTAKES. PROVIDE ONE ON ONE, MEAL INTAKE ENCOURAGEMENT, CONTINUE TO ENGAGE WITH STAFF AND OTHER PATIENTS-GROUP SESSIONS.
--- NOTE | 2019-03-26 15:40 | NUR ---
PM GROUP PT DID NOT ATTEND AFTERNOON GROUP THERAPY. PT WAS IN BED RESTING.
--- NOTE | 2019-03-26 16:48 | NUR ---
Shift chart check completed.
[2019-03-26 19:50] VITALS: BP 113/69
--- NOTE | 2019-03-26 22:01 | NUR ---
P: FLAT AFFECT/DEPRESSED, DIZZY WHEN CHANGE OF POSITIONS, FREQUENT MEDICAITON CHANGES FOR CARDIAC MEDS, HIGH FALL RISK, I: SPOKE WITH PT AT LENGTH ABOUT MOOD AND HER PERCEPTION OF WHAT IS GOING ON WITH HER HEALTH, PT REPORTED THAT SHE IS "NOT DEPRESSED" AND THAT SHE IS JUST FRUSTRATED WITH EVERYTHING CAUSING HER TO BE DIZZY. PT STATED THAT SHE IS SAD FREQUENTLY ABOUT THE LOSS OF HER SPOUSE AND THAT IT IS NEVER ENOUGH TIME WITH SOMEONE YOU LOVE. REPORTS SHE HAS DEALT WITH IT AND UNDERSTANDS SHE CAN'T CHANGE IT, BUT IT MAKES HER SAD REGUARDLESS OF WHAT SHE TELLS HERSELF. PT EDUCATED CLUTCH OPERATOR DON'T FALL, HOW TO CHANGE POSITIONS SLOWLY, AND MONITORED FOR CHANGES IN MENTAL STATUS R: PT STATES SHE FEELS BETTER THEN BEFORE AND IS GLAD THE HALLUCINATIONS ARE GONE. REPORTS SHE DOESN'T SEE ANYTHING ANYMORE EXCEPT WHAT IS SUPPOSED TO BE THERE. PT ATTEMPTS TO MUCH HOC HERSELF BUT NEEDS STAFF ASSIST DUE TO LOSS OF BALANCE AND FALL RISK P: CONTINUE TO OFFER SUPPORT, MONITOR BLOOD PRESSURE AND HEART RATE, MONITOR FOR HALLUCINATIONS OR DELUSIONS, PROMOTE SAFE ENVIRONMENT, CALL DON'T FALL. NO SI/HI OR DELUSIONS MEDICATION COMPLIANT
--- NOTE | 2019-03-27 05:51 | NUR ---
PT SLEPT 8 HOURS, 24 HR chart check completed.
--- NOTE | 2019-03-27 07:20 | NUR ---
PHYSICAL THERAPY Patient seen this am for therapy visit and was sitting upright in Belinda chair at table in activity room upon therapist arrival. Patient identified by name / and was very pleasant this morning as OT assistant counsel was present for observation only. Patient reports no c/o's pain, however still having episodes of increased dizziness during all standing activities. Patient was able to perform several sit to stand transfes at rail in [facility], demonstrating slow rise with visual fixation technique to minimize c/o of dizziness. Patient tolerated static stand 50 seconds first attempt and then 1 minute second trial with only mild c/o dizziness. Patient did not feel comfortable at this time to attempt gait ex secondary to increased dizziness and returned to Belinda chair at table in activity room awaiting breakfast, under [facility] staff Supervision. Will continue per POC as tolerated, total treatment time 14 minutes. Jamar Cohen, SUPERVISOR LABORATORY
--- NOTE | 2019-03-27 07:30 | NUR ---
OT NOTE Pt was seen this A.M. 1:1 for 15 minute OT session with CERTIFIED MEDICATION AIDE and nursing staff present for observation only. Upon arrival pt was sitting upright in the w/c in the dining room. Pt identified by name and and had no complaints at this time. Pt was taken out into the hallway where she completed multiple sit to stand transfers from chair level with Shorty and use of hand rail for UE support. Upon inital rise pt had complaints of "mild dizziness" which she reported had stopped after aprox 10 seocnds. Challenged pt's static standing tolerance needed for increased I in self care tasks and functional transfers, pt was able to tolerate aprox 60 seconds at a time before sitting due to fatigue. Pt's breakfast tray arrived which she was able to complete set up with Shorty and completed self feeding with supervision. Pt was left sitting upright in the w/c in the dining room under [facility] staff supervision. COntinue with rec D/C plan to return to SNF. DREA Bernardo/Anup
--- NOTE | 2019-03-27 08:15 | NUR ---
Treatment Plan meeting was held with Dr. Vieira, RN, AT and Assistant Floor Covering Printer. Plan for discharge Tuesday to [facility] for SNF.
[2019-03-27 08:26] VITALS: BP 113/60
--- NOTE | 2019-03-27 10:48 | NUR ---
ORTHO STATIC BP'S: LAYING 140/80, SITTING 130/72 AND STANDING 118/80. APICAL 104, PATIENT HAVING COMPLAINTS OF BEIND DIZZY AND NAUSEA. PATIENT ALSO REPORTS SEEING LITTLE BLACK DOTS THAT MOVE WHEN SHE CHANGES POSITIONS FROM LAYING DOWN TO SITTING. PATIENT ASSISTED SLOWLY WITH REPOSITIONING AND [address] MONTERO NOTIFIED NEW ORDER FOR ANTIVERT 25MG PO TID.
--- NOTE | 2019-03-27 11:25 | NUR ---
Spoke with Joyce at [facility]. Notified of Plans to discharge patient tommorow. Pt. will require Transportation due to POA working.
--- NOTE | 2019-03-27 11:30 | NUR ---
Left Message for Nikki GUZMAN to notify of plans to discharge tommorow. Left Message for Return call.
--- NOTE | 2019-03-27 11:54 | NUR ---
AM GROUP PT DID NOT ATTEND MORNING GROUP THERAPY. PT WAS IN BED RESTING.
--- NOTE | 2019-03-27 12:20 | NUR ---
DR. DE LEON ON UNIT TO ASSESS PATIENT.
--- NOTE | 2019-03-27 15:39 | NUR ---
PM GROUP PT DID NOT ATTEND AFTERNOON GROUP THERAPY. PT WAS IN BED RESTING.
--- NOTE | 2019-03-27 16:00 | NUR ---
Shift chart check completed.
--- NOTE | 2019-03-27 18:49 | NUR ---
DR. CUNHA ON UNIT TO ASSESS PATIENT.
[2019-03-27 19:35] VITALS: BP 113/62
--- NOTE | 2019-03-27 19:40 | NUR ---
PATIENT IS ALERT AND ORIENTED TO PERSON, PLACE, TIME AND SITUATION;ABLE TO VOICE NEEDS. MOOD IS SLIGHTLY DEPRESSED WITH FLAT AFFECT; IMPROVEMENT NOTED. PATIENT INTERACTIVE WITH STAFF AND PARTICIPATED IN GROUP SESSION. VISITING WITH DAUGHTER THIS EVENING. MEDICATION COMPLAINT WITH EDUCATION. Q 15 MINUTE SAFETY CHECKS MAINTAINED.1-2 PERSON ASSIST WITH ACTIVITIES OF DAILY LIVING, CONTINENT OF BOWEL AND BLADDER. SET UP FOR MEALS, INTAKES ARE FAIR. UP IN WHEELCHAIR. PATIENT IS FEARFUL OF FALLING AND USES CALL LIGHT FOR ASSISTANCE. CONTINUE TO MONITOR FOR CONFUSION AND HALLUCINATIONS. PROVIDE ONE ON ONE FOR EMOTIONAL SUPPORT AND ENCOURAGE GROUP INTERACTIONS.
--- NOTE | 2019-03-27 21:13 | NUR ---
Patient alert and oriented x4. Mood slightly depressed,flat affect. No signs of any hallucinations noted at this time. Patient compliant with HS medications without any difficulty. Patient isolative to room this evening before snacks. Provided 1:1 for emotional support. Plan to continue to encourage medication compliance and encourage more interaction with staff and other patients. Plan to continue to provide emotional support and also continue to monitor for confusion and hallucinations. Q 15 minute safety checks continued and maintained. See [facility] flowsheet for further documentation.
--- NOTE | 2019-03-28 00:13 | NUR ---
24 HR chart check completed.
--- NOTE | 2019-03-28 05:40 | NUR ---
Patient slept approx. 8 hours throughout shift with no awakening. Q 15 minute safety checks continued and maintained.
--- NOTE | 2019-03-28 07:20 | NUR ---
PHYSICAL THERAPY Patient seen this am for therapy visit and was sitting in activity room w/c at table upon therapist arrival. Patient identified by name / and still reports mild bouts of increased dizziness during standing activities. OT rehab assistant was present for observation only this morning as patient performed sit to stand transfer at rail in [facility], CGA x 1, tolerating < 45 seconds static stand. Patient able to complete several sit to stand transfers, including ambulating 10'x1, CLINICAL ALLERGIST/MIN, while demonstrating very cautious gait pattern secondary to increased fear of falling. Patient reported mild dizziness during gait ex and returned to w/c in activity room. Patient remained at table awaiting breakfast under [facility] staff Supervision. Will continue per POC as tolerated, total treatment time 14 minutes. Jamar Cohen, WASTE DISPOSAL ATTENDANT
--- NOTE | 2019-03-28 07:30 | NUR ---
OT NOTE Pt was seen this A.M. 1:1 for 15 minute OT session with ADVERTISING SALES AGENT and nursing staff present for observation only. Upon arrival pt was sitting upright in the w/c in the dining room. pt identified by name and and had complaints of a headache. Pt was taken to the hallway where she completed multiple sit to stand transfers from chair level with Shorty and use of hand rail for UE support. Upon each rise pt had complaints of feeling dizzy resulting in sitting after aprox 30-45 seconds. visusal fixation and relaxation techniques addressed and pt had no complaints after aprox 60 seconds. Pt was left sitting upright in the dining room under [facility] staff supervision. Contineu with rec D/C plan to SNF. DREA Bernardo/Anup
[2019-03-28 07:52] VITALS: BP 98/56
[2019-03-28 08:10] VITALS: BP 102/58
--- NOTE | 2019-03-28 08:15 | NUR ---
Treatment Plan meeting was held this a.m. with Dr. Vieira, RN, AT and Cadet Deck in attendance. Plan for discharge today with return to [facility]. Call placed to MEGAN Jordan and notified her of Discharge. MEGAN to transport with poultry picker time between 10:30-11:00.
--- NOTE | 2019-03-28 08:30 | NUR ---
DR. SHAW NOTIFIED OF PATIENT'S DISCHARGE.
[2019-03-28] MEDS ORDERED: RISPERIDONE1 MG PO (08:39)
[2019-03-28] MEDS ORDERED: MEMANTINE HCL10 MG PO (08:39)
[2019-03-28] MEDS ORDERED: EXELON13.3 MG/21 T (08:39)
[2019-03-28] MEDS ORDERED: RISPERIDONE0.5 MG PO (08:39)
[2019-03-28] MEDS ORDERED: MIRTAZAPINE15 M2 PO (08:39)
--- NOTE | 2019-03-28 09:02 | NUR ---
DR. GOLDBERG ON UNIT TO ASSESS PATIENT.
--- NOTE | 2019-03-28 09:23 | NUR ---
Discharge Paperwork Faxed to [facility] Attn: Joyce [phone].
[2019-03-28] MEDS ORDERED: METOPROLOL SUCC25 M2 PO (10:30)
[2019-03-28] MEDS ORDERED: MECLIZINE HCL25 M2 PO (10:30)
--- NOTE | 2019-03-28 10:45 | NUR ---
nurse [facility] nurse [facility]
--- NOTE | 2019-03-28 11:00 | NUR ---
pt off unit at this time via wheelchair with mental health worker and poa. all belongings and signed discharge paperwork sent with pt and poa at this time.
--- NOTE | 2019-03-29 07:36 | NUR ---
OCCUPATIONAL THERAPY CO-SIGN I approve of the Occupational Therapy notes written above. SHAVON URBANO OTR/Anup
--- NOTE | 2019-03-29 08:37 | NUR ---
PHYSICAL THERAPY CO-SIGN I approve of the Phyical Therapy notes written above. Nuha Wagoner PT
== END 2019-03-28 11:00 | disposition other institution (70) | DRG 885 ==
LOC: 3N 16:18
PROVIDERS: ADMIT Psychiatry & Neurology Psychiatry
DX: F33.3 Major depressive disorder, recurrent, severe with psychotic symptoms (principal); F23 Brief psychotic disorder; I48.20 Chronic atrial fibrillation, unspecified; E44.0 Moderate protein-calorie malnutrition; N39.0 Urinary tract infection, site not specified; G30.9 Alzheimer's disease, unspecified; E03.9 Hypothyroidism, unspecified; E87.6 Hypokalemia; F29 Unspecified psychosis not due to a substance or known physiological condition; I50.9 Heart failure, unspecified; R41.9 Unspecified symptoms and signs involving cognitive functions and awareness; F41.1 Generalized anxiety disorder; I11.0 Hypertensive heart disease with heart failure; I95.1 Orthostatic hypotension; B95.2 Enterococcus as the cause of diseases classified elsewhere; F02.80 Dementia in other diseases classified elsewhere, unspecified severity, without behavioral disturbance, psychotic disturbance, mood disturbance, and anxiety; E11.9 Type 2 diabetes mellitus without complications; E78.5 Hyperlipidemia, unspecified; Z86.73 Personal history of transient ischemic attack (TIA), and cerebral infarction without residual deficits; S42.211D Unspecified displaced fracture of surgical neck of right humerus, subsequent encounter for fracture with routine healing; Z79.01 Long term (current) use of anticoagulants; W18.39XD Other fall on same level, subsequent encounter; Z79.899 Other long term (current) drug therapy; R62.7 Adult failure to thrive; Z68.23 Body mass index [BMI] 23.0-23.9, adult

== ENCOUNTER 2019-04-02 04:32 | Emergency (ER) | payer MEDICARE ==
[~2019-04-02] VITALS: Ht 172.7 cm; Wt 66.2 kg
[~2019-04-02 04:32] MED LIST changes: +EXELON13.3 MG/21 T; +MECLIZINE HCL25 M2 PO; +MEMANTINE HCL10 MG PO; +METOPROLOL SUCC25 M2 PO; +MIRTAZAPINE15 M2 PO; +RISPERIDONE1 MG PO
[2019-04-02 04:57] LABS: BILIRUBIN 1+ (NEGATIVE); BLOOD NEGATIVE (NEGATIVE); CLARITY SL CLOUDY (CLEAR); COLOR YELLOW (YELLOW); GLUCOSE NEGATIVE (NEGATIVE); KETONE NEGATIVE (NEGATIVE); LEUKO ESTERASE 1+ (NEGATIVE); NITRITE NEGATIVE (NEGATIVE); SPECIFIC GRAVITY 1.025 (1.005-1.030); UROBILINOGEN 0.2 E.U./dl (0.2-1.0)
[2019-04-02 05:04] LABS: BACTERIA 1+; HYALINE CAST 0-2; WBC 31-40 wbc/hpf (0-5); YEAST 2+
[2019-04-02] MEDS ORDERED: SEPTDS PO (05:51)
== END 2019-04-02 06:30 ==
LOC: ED 04:32
PROVIDERS: Emergency Medicine
DX: N39.0 Urinary tract infection, site not specified (principal); F22 Delusional disorders; Z88.0 Allergy status to penicillin

== ENCOUNTER 2019-04-18 15:48 | Emergency (ER) | payer MEDICARE ==
[~2019-04-18 15:48] MED LIST changes: +SEPTDS PO
== END 2019-04-18 18:30 | disposition home or self-care (01) ==
LOC: ED 15:48
DX: S32.591A Other specified fracture of right pubis, initial encounter for closed fracture (principal); Z88.0 Allergy status to penicillin; Z79.899 Other long term (current) drug therapy; W01.0XXA Fall on same level from slipping, tripping and stumbling without subsequent striking against object, initial encounter; Y93.89 Activity, other specified; Y92.89 Other specified places as the place of occurrence of the external cause; Y99.8 Other external cause status

== ENCOUNTER 2019-04-27 11:56 | Inpatient (IN) | payer MEDICARE ==
[2019-04-27] VITALS (8 sets, daily range): BP systolic 96–120; BP diastolic 50–77
[~2019-04-27] VITALS: Ht 162.5 cm; Wt 53.3 kg
[2019-04-27 12:42] LABS: BASO % 0.1 % (0.0-1.0); EOS # 0.1 10*3/uL (0.0-0.4); EOS % 0.6 % (1.0-4.0); HEMATOCRIT 24.9 % (37.0-47.0); LYMPH # 0.8 10*3/uL (1.3-4.4); LYMPH % 9.1 % (27.0-41.0); MEAN CELL VOLUME 85.3 fl (81.0-99.0); MEAN CORPUSCULAR HGB CONC 28.1 g/dl (33.0-37.0); MEAN PLATELET VOLUME 10.8 fl (9.6-12.3); MONO # 0.7 10*3/uL (0.1-1.0); MONO % 7.7 % (3.0-9.0); NEUT # 6.9 10*3/uL (2.3-7.9); NEUT % 81.7 % (47.0-73.0); PLATELET COUNT AUTOMATED 307 10*3/uL (130-400); RED BLOOD COUNT 2.92 10*6/uL (4.10-5.10); RED CELL DISTRI WIDTH 18.2 % (0-14.5); WHITE BLOOD COUNT 8.4 10*3/uL (4.8-10.8)
[2019-04-27 12:52] LABS: BILIRUBIN NEGATIVE (NEGATIVE); BLOOD NEGATIVE (NEGATIVE); CLARITY SL CLOUDY (CLEAR); COLOR YELLOW (YELLOW); GLUCOSE NEGATIVE (NEGATIVE); KETONE NEGATIVE (NEGATIVE); LEUKO ESTERASE TRACE (NEGATIVE); NITRITE POSITIVE (NEGATIVE); SPECIFIC GRAVITY 1.025 (1.005-1.030)
[2019-04-27 12:53] LABS: ACT PARTIAL THROMBO TIME 34.2 SECONDS (20.0-32.1); INTERNATIONAL NORM RATIO 1.4 (2.0-3.5)
[2019-04-27 12:58] LABS: ALBUMIN 2.4 gm/dl (3.1-4.5); ALKALINE PHOSPHATASE 90 U/L (45-117); BUN 20 mg/dl (7-24); CHLORIDE 112 mmol/L (98-107); CREATININE 0.94 mg/dL (0.55-1.02); POTASSIUM 3.6 mmol/L (3.5-5.1); SGOT/AST 22 IU/L (3-35); SGPT/ALT 29 U/L (12-78); SODIUM 145 mmol/L (136-145); TOTAL PROTEIN 5.8 gm/dL (6.4-8.2)
[2019-04-27 13:04] LABS: TROPONIN I < 0.015 ng/ml (<0.045)
[2019-04-27 13:12] LABS: BACTERIA 4+
--- NOTE | 2019-04-27 14:18 | NUR ---
pt resting in bed seems to be more alert than when she first came in her youth care professional is in the room call light in reach
--- NOTE | 2019-04-27 15:39 | NUR ---
PT TO CT SCAN WHILE I WENT AND PICKED UP BLOOD WILL START WHEN SHE RETURNS
--- NOTE | 2019-04-27 16:11 | NUR ---
BLOOD TRANSFUSION STARTED AT [address] PT [address] FROM [address] SCAN
--- NOTE | 2019-04-27 16:30 | NUR ---
The assessment has been completed. CHANELLE BRIDGES Time: 1629 A 74 year old FEMALE admitted to 5E under services of BHARATH BERNAL MD. Pt. arrived via ambulance from ER. Chief complaint: ANEMIA,CONFUSION,AFIB WITH RVR. CHANELLE BRIDGES
--- NOTE | 2019-04-27 16:38 | NUR ---
BLOOD TRANSFUSING WHEN PT WAS TAKEN TO FLOOR
--- NOTE | 2019-04-27 16:52 | NUR ---
MANAGER SOCIAL WORK NOTIFIED THAT BLOOD PRODUCT WAS NOT SCANNED ELECTRONICALLY IN EMERGENCY DEPARTMENT. STATED SHE WOULD FIND OUT WHO STARTED IT AND WHAT TIME. PT IS STABLE AT THIS TIME.
[2019-04-27] MEDS ORDERED: CARDIZEM LA180 MG PO (17:08)
[2019-04-27] MEDS ORDERED: INVEGA6 MG PO (17:13)
[2019-04-27] MEDS ORDERED: MEGACE 40400 MG/10 PO (17:16)
[2019-04-27] MEDS ORDERED: TOPROL XL25 MG PO (17:18)
[2019-04-27] MEDS ORDERED: COL-RITE100 M1 PO (17:23)
[2019-04-27] MEDS ORDERED: MILK OF MA400 MG/5 M PO (17:26)
[2019-04-27] MEDS ORDERED: TRAMADOL HCL50 MG PO (17:28)
[2019-04-27] MEDS ORDERED: RIVASTIGMINE TAR6 M1 PO (17:46)
--- NOTE | 2019-04-27 18:06 | NUR ---
DR SHAW INFORMED OF ADMISSION AND THAT MED REC WAS UP TO DATE. VERBALLY WENT OVER MEDICATIONS WITH HIM AND REPEATED ORDERS BACK.
--- NOTE | 2019-04-27 19:47 | NUR ---
PATIENT IS RESTING IN BED WITH EASY AND REGULAR RESPERS ON ROOM AIR. ASSESSMENT IS COMPLETE WITH NO C/O OR S/S OF DISTRESS NOTED AT THIS TIME. BED IS LOW, LOCKED, ALARMED, AND CALL LIGHT IS WITHIN REACH. BLOOD TRANSFUSION FINISHED AT THIS TIME. UNABLE TO STOP TRANSFUSION IN TAR D/T BLOOD NOT BEING SCANNED. WILL CONTINUE TO MONITOR, SEE SHIFT ASSESSMENT.
[2019-04-28] VITALS: BP 128/49
[2019-04-28 02:14] LABS: HEMATOCRIT 25.8 % (37.0-47.0); HEMOGLOBIN 7.6 g/dl (12.0-16.0)
[2019-04-28 08:00] VITALS: BP 132/60
--- NOTE | 2019-04-28 09:49 | NUR ---
PT RESTING IN BED WITH EYES CLOSED. DENIES PAIN. REPOSITIONED FOR COMFORT.
--- NOTE | 2019-04-28 11:01 | NUR ---
PT CONFUSED AND UNABLE TO ANSWER ANY QUESTIONS. ATTEMPTED TO CALL ALL NUMBERS LISTED FOR COCOJoleen DAMION BUT WAS TOLD I HAD THE WRONG NUMBER THEN THAT SHE WAS NOT AVAILABLE.
[2019-04-28 12:00] VITALS: BP 105/43
--- NOTE | 2019-04-28 15:40 | NUR ---
PTS DAUGHTER CALLED IN AND WAS UNAWARE OF PASSWORD. TRANSFERRED CALL TO ROOM WHERE PT TOLD DAUGHTER PASSWORD AND ALLOWED ME TO SPEAK WITH THE DAUGHTER. DAUGHTER STATES SHE DOES NOT KNOW THE WOMEN LISTED THE POWER OF CONCRETE LABORER AND IS CONCERNED FOR HER MOTHER SHE LIVES IN [place]. STATES SHE WILL TRAVEL HERE TO SORT OUT WHAT IS GOING ON. POA AND LIVING WILL ON CHART.
--- NOTE | 2019-04-28 15:50 | NUR ---
Received a call from Flower Phipps, sil GUZMAN. She is upset that patients daughter is flying in from [place] in a few days. She is requesting that nobody visit the patient except for herself. I let her know we can't possibly monitor every person walking in, but we can put a sign on the door for visitors to report to nurses station before entering. Flower also changed patients passcode to PIG.
[2019-04-28 16:00] VITALS: BP 117/60
[2019-04-28 20:00] VITALS: BP 97/38
[2019-04-29] VITALS: BP 99/45
[2019-04-29 08:00] VITALS: BP 120/82; BP 125/91
--- NOTE | 2019-04-29 08:06 | NUR ---
24 HR chart check completed.
--- NOTE | 2019-04-29 09:00 | NUR ---
RESTING IN BED. RESPIRATIONS EASY. LUNGS DIMINISHED, CLEAR. PULSE OX 94% RA. CALL LIGHT WITHIN REACH. BED ALARM MAINTAINED FOR SAFETY
--- NOTE | 2019-04-29 09:30 | NUR ---
RESTLESS, ATTEMPTING TO CLIMB OOB. ASSISTED BACK TO BED AND POSITIONED FOR COMFORT. CONFUSED, INSISTING DAUGHTER WAS HERE AND STOLE GRAND-DAUGHTER. ATTEMPTED TO REORIENT PATIENT AND EXPLAIN THAT INCIDENT DID NOT OCCUR. PATIENT ONLY BECOMING MORE AGITATED.
[2019-04-29 12:00] VITALS: BP 122/50
--- NOTE | 2019-04-29 12:45 | NUR ---
SITTING IN RECLINER VISITING WITH MEGAN
--- NOTE | 2019-04-29 15:00 | NUR ---
PHYSICAL THERAPY PT EVAL COMPLETED TODAY; FULL EVAL TO FOLLOW. RECOMMEND PT WHILE HERE TO ADDRESS DECREASED STRENGTH AND FUNCTIONAL MOBILITY. PT EVAL IS MODERATE COMPLEXITY: 25011. D/C RECOMMENDATIONS ARE TO RETURN TO SNF ON D/C FOR CONTINUED REHAB. THANK YOU FOR REFERRAL AUBREE YING PT
--- NOTE | 2019-04-29 15:00 | NUR ---
GUEST PRESENT AT BEDSIDE VISITING. NO DISTRESS NOTED. NO VOICED COMPLAINTS
[2019-04-29 16:00] VITALS: BP 118/60
--- NOTE | 2019-04-29 16:00 | NUR ---
ASSISTED BACK TO BED AND POSITIONED FOR COMFORT. BED ALARM APPLIED FOR SAFETY
--- NOTE | 2019-04-29 18:35 | NUR ---
SLEEPING. BED ALARM MAINTAINED FOR SAFETY
[2019-04-29 20:00] VITALS: BP 112/49
--- NOTE | 2019-04-29 21:00 | NUR ---
PATIENT IS RESTING IN BED WITH EASY AND REGULAR RESPERS ON ROOM AIR. ASSESSMENT IS COMPLETE WITH NO S/S OF DISTRESS NOTED. BED IS LOW, LOCKED, ALARMED, AND CALL LIGHT IS WITHIN REACH. WILL CONTINUE TO MONITOR, SEE SHIFT ASSESSMENT.
--- NOTE | 2019-04-29 21:23 | NUR ---
EKG OBTAINED FOR HEARTRATE BEING IN THE 130'S BY APICAL PULSE.
[2019-04-30] VITALS: BP 121/68
--- NOTE | 2019-04-30 01:41 | NUR ---
PATIENT IS SLEEPING WITH EASY AND REGULAR RESPERS ON ROOM AIR. CALL LIGHT IS WITHIN REACH.
--- NOTE | 2019-04-30 04:41 | NUR ---
CHART CHECK COMPLETE.
--- NOTE | 2019-04-30 05:31 | NUR ---
WHILE REPOSITINING PATIENT. SKIN TEAR NOTED TO LEFT FOREARM. NEW SKIN IMPAIRMENT POLICY FOLLOWED. AWARE, SHIFT DIRECTOR AWARE, AND WINTERIZER AWARE. DRESSING APPLIED PER ORDER. PATIENT TOLERATED WELL, CALL LIGHT IS WITHIN REACH.
--- NOTE | 2019-04-30 07:13 | NUR ---
DR. CHRISTOPHER CALLED AT THIS TIME REGARDING PATIENT NOT VOIDING ALL SHIFT. STRAIGHT CATH ORDER OBTAINED.
--- NOTE | 2019-04-30 07:46 | NUR ---
PATIENT STRAIGHT CATHED AROUND 0630 THIS AM. PATIENT TOLERATED WELL, 600ML URINE OBTAINED. CALL LIGHT IS WITHIN REACH.
--- NOTE | 2019-04-30 07:51 | NUR ---
PHYSICAL THERAPY Screen received pt has been evaluated by PT and is on caseload, thank you Nuha Wagoner PT
[2019-04-30 08:00] VITALS: BP 114/61
--- NOTE | 2019-04-30 08:50 | NUR ---
BIGG RAMIRES [id number] Please refer to the physician's history and physical for past medical history, comorbid conditions, and allergies. Diagnosis: ANEMIA CONFUSION ATRIAL FIBRILLATION WITH RVR Sebastián Score: 14,MODERATE RISK WOUND DESCRIPTIONS: Wound Number: 1 Location of the wound: LEFT FOREARM Type of wound: SKIN TEAR Thickness: Partial Size: 1.6cm X 1.7cm X 0.1cm Tunneling: NONE Undermining: NONE Sinus Tract: NONE Presence of Exudate: Serous sanguineous Amount: Light Color: Red Odor: None Periwound Skin Appearance: Normal Wound edges: APPROXIMATED Pain (associated with wound): DENIED AT TIME OF ASSESSMENT How does patient state this happened? PATIENT UNSURE HOW THIS HAPPENED. Surface the patient is resting on: Isoflex SKIN PREVENTION RECOMMENDATION: 1. Pressure redistribution support surface as appropriate 2. Elevate heels 3. Remove boots/TEDS every shift and reapply 4. Head of bed 30 degrees as tolerated 5. Assess nutrition and hydration 6. Manage moisture 7. Avoid the use of containment devices while in bed 8. Use absorptive products on surfaces limit layers of linens on bed 9. Turn and reposition every 1-2 hours in bed and every 1 hour in chair as tolerated 10. Weight shifts every 15 minutes while up in chair 11. Offloading with pillows or device to keep heels elevated off bed 12. Monitor skin at least every shift 13. Inspect under medical devices twice a day WOUND TREATMENT RECOMMENDATIONS: CONTINUE CURRENT ORDERS.
--- NOTE | 2019-04-30 08:57 | NUR ---
Nursing screen and Occupational Therapy referral received. Thank you. Leila Medina OTR/l
--- NOTE | 2019-04-30 10:45 | NUR ---
Consult with nurse; Brittany regarding weight bearing status on RLE with inferior pubic ramus and superior pubic ramus fx and non-displaced fx r sacrum and right humeral fx. Nursing to call Dr. Blair to determine restrictions. Leila Medina OTR/l
--- NOTE | 2019-04-30 10:45 | NUR ---
PHYSICAL THERAPY Spoke with primary nurse,Sarahi, regarding weightberaing status of RLE to be WBAT as no orders in chart or Ortho consult and also to discuss RUE status as pt here in 03/21/19 at that time pt NWB with Sling due to humeral fx nonsurgical being followed by . Spoke with Dr. Clay's off this AM and pt has not had f/u with them since March. Above info disucssed with nurse and to clarify/discuss with MD regarding RLE and RUE, will follow Nuha Wagoner PT
--- NOTE | 2019-04-30 10:47 | NUR ---
Received several messages from [facility] regarding patient returning short term to their facility. They are stating the POA was in having a discussion with their DON. Apparently the POA does not want the patients daughter visiting the patient, so POA is discussing moving the patient to another facility such as [facility] or [facility]. will follow up with Poa
--- NOTE | 2019-04-30 11:05 | NUR ---
Nurse: Brittany phoned OTR to relay that per Dr. Blair patient has no restrictions in lower extremities and Dr. Blair said nurse could consult Dr Clay re-right humeral fracture weight bearing/ restrictions. Leila Medina OTR/L
--- NOTE | 2019-04-30 11:11 | NUR ---
PHYSICAL THERAPY Per nurse spoke with Dr. Blair and can be WBAT on the RLE to have Dr. Clay f/u while pt here in hospital regarding RUE will follow. Nuha Wagoner PT
--- NOTE | 2019-04-30 11:40 | NUR ---
Occupational Therapy offered this date but power of mergers and acquisitions attorney says she would like OT to return after patient wakes up. Leila Medina OTR/l
[2019-04-30 12:00] VITALS: BP 121/45
--- NOTE | 2019-04-30 12:30 | NUR ---
POA AT BEDSIDE FEEDING PATIENT. PT AWAKE ALERT AND ORIENTED X3. DAUGHTER IS HERE IN LOBBY WANTING TO SEE PATIENT. PT STATES SHE DOES NOT WANT TO SEE DAUGHTER STATING SHE IS AFRAID THAT SHE WILL TRY AND HURT HER AGAIN. CALLED SECURITY AND NOTIFIED THEM. CALLED THE DAUGHTER ON HER CELLPHONE AND TOLD HER SHE NEEDED TO LEAVE THE BUILDING BECAUSE THE PT DOES NOT WISH TO SEE HER AT THIS TIME.
--- NOTE | 2019-04-30 13:10 | NUR ---
PHYSICAL THERAPY Patient seen this pm for therapy visit and was resting supine in bed, with a family member present upon therapist arrival. Patient identified by name / and per discussion with OTR to be NWB on R UE as a precaution pending update from Physician. Patient transfers supine to sit EOB with MOD A x 2, tolerating several minutes static EOB sit SBA. Patient performed sit to stand transfer, MOD A, while demonstrating initial "shaky" standing balance. Patient received v/c to widen YAZMIN prior to completing SPT to Bárbara chair, including several backward steps to chair. Patient also needed v/c for proper hand placemnt before sitting down and was very cautious during all standing activities this session. Patient remained in Bárbara chair with call light, body alarm for safety and lap tray. Will continue per POC as tolerated, total treatment time 13 minutes. Jamar Cohen, OCEAN RESCUE LIEUTENANT
--- NOTE | 2019-04-30 13:15 | NUR ---
Occupational Therapy evaluation completed on 5 with full eval to follow. Precautions include no WB restrictions on BLE, unknown WB RUE-awaiting orthopedic consult, fall risk, nauseated today with position changes, +2 transfer assist, assist in all ADLs, high complexity level 80119. Recommend OT per POC and SNF to enable max ability to function. Thank you. Edgardo Medina OTR/l
--- NOTE | 2019-04-30 13:29 | NUR ---
NO WEIGHTBEARING STATUS ORDERS PER THERAPY. NOTIFIED DR CHRISTOPHER AND NEW ORDERS RECEIVED FOR DR LEDESMA CONSULT.
--- NOTE | 2019-04-30 13:31 | NUR ---
Orthopedic Podiatrist in to see patient. Therapy is currently working with patient. Patient is currently short term at [facility]. Attempted to reach out to friend, Nikki, at [phone] regarding discharge planning with no success. Awaiting return call.
--- NOTE | 2019-04-30 14:19 | NUR ---
Spoke to Nikki WHITFIELD, who is at the patient's bedside regarding discharge planning. She would like patient to go to [facility] in [place]. paraplanner notified.
--- NOTE | 2019-04-30 14:55 | NUR ---
POA requesting patient be referred to [facility] instead of returning to [facility]> Contacted facility and faxed referral. waiting on review/acceptance.
[2019-04-30 16:00] VITALS: BP 132/90
--- NOTE | 2019-04-30 17:52 | NUR ---
TRAMADOL GIVEN FOR C/O PAIN ALL OVER OF 09/25. WILL CONT TO MONITOR. CALL LIGHT IN REACH.
[2019-04-30 20:00] VITALS: BP 109/79
--- NOTE | 2019-04-30 20:00 | NUR ---
RESTING IN BED WITH EYES CLOSED. PULSE OX 97% ON ROOM AIR. SKIN WARM & DRY. HEP LOCK INTACT TO RIGHT ARM. CALL LIGHT WITHIN REACH; BED ALARM INTACT. NO DISTRESS NOTED.
[2019-05-01] VITALS: BP 109/52
--- NOTE | 2019-05-01 04:34 | NUR ---
Upon discharge recommend patient to follow up for wound care in outpatient setting continue current wound care orders at discharging facility.
--- NOTE | 2019-05-01 06:22 | NUR ---
BIGG RAMIRES Jai [id number] Please refer to the physician's history and physical for past medical history, comorbid conditions, and allergies. Diagnosis: ANEMIA CONFUSION ATRIAL FIBRILLATION WITH RVR Sebastián Score: 14,MODERATE RISK WOUND DESCRIPTIONS: Wound Number: 2 Location of the wound: right heel Type of wound: Deep tissue pressure injury Size: 3.5cm x 4.0cm x <0.1cm Tunneling: none Undermining: none Sinus Tract: none Presence of Exudate: none Amount: None Color: Purple, dark red Odor: None Periwound Skin Appearance: Normal Wound edges: closed Pain (associated with wound): none at time of assessment How does patient state this happened? pt unable to state how this happened Surface the patient is resting on: Isoflex SKIN PREVENTION RECOMMENDATION: 1. Pressure redistribution support surface as appropriate 2. Elevate heels 3. Remove boots/TEDS every shift and reapply 4. Head of bed 30 degrees as tolerated 5. Assess nutrition and hydration 6. Manage moisture 7. Avoid the use of containment devices while in bed 8. Use absorptive products on surfaces limit layers of linens on bed 9. Turn and reposition every 1-2 hours in bed and every 1 hour in chair as tolerated 10. Weight shifts every 15 minutes while up in chair 11. Offloading with pillows or device to keep heels elevated off bed 12. Monitor skin at least every shift 13. Inspect under medical devices twice a day WOUND TREATMENT RECOMMENDATIONS: Apply sureprep to right heel allow time to dry then cover with optifoam gentle daily and prn for soiling. Heel raiser pro boots while in bed.
--- NOTE | 2019-05-01 06:35 | NUR ---
PATIENT HAS HAD NO URINE OUTPUT SINCE 7PM, STRAIGHT CATHED FOR NO URINE.
--- NOTE | 2019-05-01 07:38 | NUR ---
SPOKE WITH DR SHAW CONCERNING NO URINE OUTPUT, NEW ORDERS RECEIVED.
[2019-05-01 08:00] VITALS: BP 140/45
[2019-05-01 08:40] LABS: BUN 12 mg/dl (7-24); CHLORIDE 113 mmol/L (98-107); CREATININE 0.78 mg/dL (0.55-1.02); POTASSIUM 3.3 mmol/L (3.5-5.1); SODIUM 144 mmol/L (136-145)
--- NOTE | 2019-05-01 10:13 | NUR ---
Patient has been accepted to [facility] and is ok to go when medically stable for discharge.
--- NOTE | 2019-05-01 10:20 | NUR ---
patient is being discharged today, spoke with MEGAN and she would prefer [facility] to transport patient. Contacted [facility], waiting on a time available for transport.
--- NOTE | 2019-05-01 10:33 | NUR ---
Patient is being discharged to [facility] (not [facility]). [facility] 2 [facility] NH, nursing and OA Zuleyma notified.
[2019-05-01] MEDS ORDERED: CIPRO500 MG PO (10:34)
--- NOTE | 2019-05-01 10:37 | NUR ---
OT NOTE Pt was seen this A.M. 1:1 for 17 minute OT session. Upon arrival pt was supine in bed. Pt identified by name and and had complaints of feeling nauseated and having a head ache. Pt presented to therapy with IV in RUE which remained in place throughout the entire session. Pt transferred supine to sit EOB with modA and education on proper hand placement for increased I and improved technique. While sitting EOB challenged pt's static sitting balance needed for increased I and enhanced safety. Pt was able to maintain F+ sitting balance throughout. Pt completed multiple sit to stand transfers from bed level with Shorty X 2 and use of w/w for UE support. Challenged pt's static standing tolerance needed for increased I in self care tasks and functional transfers. Pt was able to tolerate aprox 20-30 seconds at a time before sitting due to fatigue and complaints of being dizzy. Pt was educated on visual fixation technique and after aprox 60-70 seconds pt stated she was no longer dizzy. Pt then transferred back into bed sit to supine with modA X 2. There she was left with call light in hand, tray table in place, and bed alarm activated for safety. Continue with rec D/C plan to SNF. DREA Bernardo/Anup
--- NOTE | 2019-05-01 10:46 | NUR ---
PHYSICAL THERAPY TREATMENT TIME: 10:25 AM - 10:42 AM 17 MINUTES TOTAL Patient presented to therapy in supine with head of bed elevated and bed alarm on. Patient was identified by name and on wristband. Patient gives informed consent for treatment. Patient reports dizziness and fatigue. Patient also complains of headache and nausea. Patient performed supine to sitting at EOB transfer with MOD A X 1. Patient sat on EOB with CGA X 1 to SBA. Patient sit to stand from EOB with MIN A X 2 with verbal cues for pushing off the bed with his hands. Patient stood x 2 at Walker with CGA X 2 FOR 20 - 30 SECONDS EACH TIME. Patient very dizzy in standing and nauseous. Patient transferred back to supine in bed with MOD A X 2. Patient was left in supine in bed with head bed elevated, call light within reach and bed alarm activated. Patient was 1:1 with this TRUCK MECHANIC for 17 minutes total. KATHIA BURGOS TRUCK MECHANIC
--- NOTE | 2019-05-01 11:28 | NUR ---
NOTIFIED DR SHAW OF LABS AND NO RECHECK ON CBC. HE SAID HE WAS OK TO DISCHARGE TO [facility], NO NEW ORDERS RECEIVED.
[2019-05-01 12:00] VITALS: BP 112/58
--- NOTE | 2019-05-01 12:30 | NUR ---
CALLED REPORT TO MARYBETH MALDONADO [place].
--- NOTE | 2019-05-01 15:31 | NUR ---
PT DROWSY. ATTEMPTED TO GET DRESSED AND GET INTO WHEELCHAIR AND PT STATED SHE WAS JUST TIRED AND DIDN'T BELIEVE SHE WOULD BE ABLE TO STAY AWAKE FOR THE TRANSPORT TO [facility]. NOTIFIED DR SHAW AND HE STATED TO CANCEL DISCHARGE FOR TODAY.
--- NOTE | 2019-05-01 15:50 | NUR ---
MEGAN AT BEDSIDE AND MADE AWARE DISCHARGE WAS CANCELLED AND ALSO SPOKE TO MARYBETH AT [facility] TO NOTIFY HER.
[2019-05-01 16:00] VITALS: BP 110/49
[2019-05-01 20:00] VITALS: BP 116/50
--- NOTE | 2019-05-01 20:04 | NUR ---
PATIENT IS RESTING IN BED WITH EASY AND REGULAR RESPERS ON ROOM AIR. ASSESSMENT IS COMPLETE WITH NO C/O OR S/S OF DISTRESS NOTED AT THIS TIME. BED IS LOW, LOCKED, ALARMED, AND CALL LIGHT IS WITHIN REACH. WILL CONTINUE TO MONITOR, SEE SHIFT ASSESSMENT.
[2019-05-02] VITALS: BP 121/50
--- NOTE | 2019-05-02 07:08 | NUR ---
PATIENT SLEPT PEACEFULLY THROUGHOUT THE NIGHT.
[2019-05-02 07:19] LABS: BUN 8 mg/dl (7-24); CHLORIDE 114 mmol/L (98-107); CREATININE 0.75 mg/dL (0.55-1.02); POTASSIUM 3.2 mmol/L (3.5-5.1); SODIUM 145 mmol/L (136-145)
[2019-05-02 08:00] VITALS: BP 142/66
--- NOTE | 2019-05-02 08:11 | NUR ---
PHYSICAL THERAPY Pt has been evaluated and is on caseload thank you Nuha Wagoner PT
--- NOTE | 2019-05-02 09:13 | NUR ---
OT NOTE Pt was seen this A.M. 1:1 for 13 minute OT session. Upon arrival pt was supine in bed. Pt identified by name and and had complaints of 9/10 all over body pain. Pt transferred supine to sit EOB modA X 2. While sitting EOB pt donned pants with maxA due to being unsteady while standing without UE support resulting in LOB that required modA to correct. Sit to stand completed from bed level with Shorty X 2 and use of w/w followed by functional mobility to the recliner with Shorty. There she was left with call light in hand, trya table in place, and body alarm activated for safety. Continue with rec D/C plan to SNF. DREA Bernardo/Anup
--- NOTE | 2019-05-02 11:25 | NUR ---
[facility] in to see patient. Discussed short term rehab. She states she doesn't want to go where they want her to go. She would like to go back to [facility]. She knows her name, where she is, the president, and the year. Spoke to HPOA, Nikki, regarding patient requesting to go back to [facility]. Nikki is concerned about her going back to [facility] and would like to speak to patient. Nikki will be here in about 30 minutes. Awaiting her arrival. service planner notified.
[2019-05-02 11:54] VITALS: BP 90/42; BP 90/52
--- NOTE | 2019-05-02 12:08 | NUR ---
PHYSICAL THERAPY TREATMENT TIME: 09:00 AM - 09:14 AM 14 MINUTES TOTAL. PATIENT GIVES INFORMED CONSENT. PATIENT WAS IDENTIFIED BY JAMAAL AND LAUREN ON WRISTBAND. PATIENT HAS COMPLAINT OF DIZZINESS AND 9/10 EVERYWHERE IN HER BODY. PATIENT TRANSFERRED SUPINE TO SITTING AT EOB WITH MOD A X 2. SITITNG AT EOB WITH SBA. PATIENT SIT TO STAND FORM EOB WITH MIN A X 2. PATIENT AMBULATED 15' X 1 AROUND BED TO BEDSIDE CHAIR WITH CGA X 2. PATIENT TRANSFERRED INT OBEDSIDE CHAIR WIT HMIN A X 1. PATIENT REQUIRED VERBAL CUES FOR PROPER TECHNIQUE IN SITITNG BACK INTO CHAIR AND SIT TO STAND. PATIENT THEN PERFORMED BILATERAL LE THER EX 2 X 10 REPS EACH IN ALL PLANES OF MOVEMENT FOR STRENGTHENING THE LEs IN ORDER TOIMPROVE FUNCTIONAL MOBILITY. PATIENT WAS LEFT IN SITTING IN BEDSIDE CHAIR WITH CHAIR ALARM TESTED AND ATTACHED TO PATIENT, CALL LIGHT WITHIN REACH AND AND TRAY TABLE NEAR PATIENT. PATIENT WAS 1:1 WITH THIS ETL INFORMATICA DEVELOPER FOR 14 MINUTES TOTAL. KATHIA BURGOS ETL INFORMATICA DEVELOPER
--- NOTE | 2019-05-02 13:00 | NUR ---
Spoke to HPWILLIE, Nikki, and patient regarding discharge planning. Both are agreeable to [facility] if [facility] will take her back. mechanical planner/social science manager notified.
--- NOTE | 2019-05-02 14:53 | NUR ---
Patient changed her mind and now wants to return to [facility]. Contacted [facility] and asked if patient would be allowed to return. Joyce stated the HPOA has already come and picked up her stuff, patient was not a bed hold so her bed was taken. [facility] has numerous new referrals at this time. They will review patients information but they are stating they probably will not have an available bed for her at this time. Faxed for review.
[2019-05-02 14:57] VITALS: BP 124/50
[2019-05-02 16:00] VITALS: BP 102/51
--- NOTE | 2019-05-02 19:30 | NUR ---
PATIENT IS RESTING IN BED WITH EASY AND REGULAR RESPERS ON ROOM AIR. ASSESSMENT IS COMPLETE WITH NO C/O OR S/S OF DISTRESS NOTED AT THIS TIME. BED IS LOW, LOCKED, ALARMED, AND CALL LIGHT IS WITHIN REACH. IV started right hand with #24 angiocath after 1 attempt. The IV site was prepped with Chloraprep. Heparin lock attached. Sterile dressing applied. Patient tolerated precedure well. Procedure performed according to [facility] policy & procedure. WILL CONTINUE TO MONITOR, SEE SHIFT ASSESSMENT. SLAVA RIOS A
[2019-05-02 20:28] VITALS: BP 115/64
[2019-05-03] VITALS: BP 117/63
[2019-05-03 06:51] LABS: BUN 10 mg/dl (7-24); CHLORIDE 114 mmol/L (98-107); CREATININE 0.79 mg/dL (0.55-1.02); POTASSIUM 3.2 mmol/L (3.5-5.1); SODIUM 146 mmol/L (136-145)
[2019-05-03 08:00] VITALS: BP 123/37
[2019-05-03 09:23] VITALS: BP 122/50
--- NOTE | 2019-05-03 09:23 | NUR ---
PT GIVEN ULTRAM 50 MG AT THIS TIME FOR C/O HEADACHE. WILL MONITOR FOR EFFECTIVENESS. ALL OTHER AM MEDCIATIONS TAKEN WITH EASE. ASSESSMENT COMPLETE. PT AWAKE, ALERT, WATCHING TELEVISION AND EATING BREAKFAST. HOB ELEVATED, ALL SAFETY MEASURES IN PLACE. CALL LIGHT IN REACH.
--- NOTE | 2019-05-03 09:40 | NUR ---
Notified Dr. Curiel of patient being accepted to [facility] and can be discharged when medically stable.
--- NOTE | 2019-05-03 10:20 | NUR ---
Patient has been accepted back to [facility] was notified. Patient can go today if medically stable but must go later in the afternoon so [facility] has time for a patient discharge to clear her room.
--- NOTE | 2019-05-03 10:23 | NUR ---
ULTRAM EFFECTIVE PER PT.
--- NOTE | 2019-05-03 11:03 | NUR ---
Received call from Nikki WHITFIELD. Notified patient has been accepted at [facility] and Dr. Curiel entered her discharge for today. Nikki will transport on discharge. senior buyer planner notified.
--- NOTE | 2019-05-03 11:50 | NUR ---
OT NOTE Pt was seen this A.M. 1:1 for 20 minute OT session. Upon arrival pt was supine in bed. Pt identified by name and and had no complaints at this time. Pt transferred supine to sit EOB with Shorty for assist with UB. While sitting EOB pt donned B socks with Shorty. Challenged pt's dynamic sitting balance while weight shifting, crossing midline, and reaching over all planes pt was able to maintain F/F- sitting balance. Sit to stand completed from bed level with Shorty and use of w/w for UE support. Upon inital rise pt had complaints of feeling dizzy, after aprox 30 seconds of visual fixation she stated she felt a little better. Functional mobility completed to the bathroom and then back to the recliner with CGA and use of w/w. Pt required Shorty while sitting onto surfaces due to being impulsive and poor safety alignment with chair resulting in early sit increasing risk of falls. Pt was left sitting upright in the recliner with call light in hand, tray table in place, and body alarm activated for safety. COntinue with rec D/C plan to SNF. NITO Bernardo
--- NOTE | 2019-05-03 11:50 | NUR ---
PHYSICAL THERAPY TREATMENT TIME: 11:35 AM - 11:51 AM 16 MINUTES TOTAL PATIENT PRESENTED TO THERAPY IN SUPINE WITH HEAD OF BED ELEVATED AND BED ALARM ACTIVATED. PATIENT GIVES INFORMED CONSENT FOR TREATMENT. PATIENT WAS IDENTIFIED BY NAME AND ON WRISTBAND. PATIENT PERFORMED SUPINE TO SITTING AT EOB WITH MIN A X 1. PATIENT PERFORMED SITTING AT EOB WITH SBA. PATIENT PERFORMED SIT TO STAND FROM EOB WITH MIN A X 1. PATIENT AMBULATED WITH WH WALKER AND CGA X 1 FOR 20' X 1 AND THEN PATIENT SAT IN BEDSIDE CHAIR WITH MIN A X 1. PATIENT SIT TO STAND OUT OF BEDSIDE CHAIR WITH MIN A X 1 WITH VERBAL CUES FOR PUSHING OFF OF ARMRESTS OF CHAIR WITH HANDS. PATIENT PERFORMED TUG TEST IN 41 SECONDS WITH USE OF UEs TO PUSH OFF OF ARMRESTS OF CHAIR AND CGA X 1 DURING TUG TEST WITH WH WALKER. PATIENT LEFT IN BEDSIDE CHAIR WITH CALL LIGHT WITH REACH , CHAIR ALARM TESTED AND ATTACHED TO PATIENT AND VISITOR IN ROOM WITH PATIENT. PATIENT WAS 1:1 WITH THIS ENGRAVER JEWELRY FOR 16 MINUTES TOTAL. KATHIA BURGOS ENGRAVER JEWELRY
[2019-05-03 12:00] VITALS: BP 103/39
[2019-05-03] MEDS ORDERED: POTASSIUM CHLO20 ME4 PO (13:11)
--- NOTE | 2019-05-03 14:57 | NUR ---
PT REFUSING DISCHARGE PHOTOS, WHEN ATTEMPTING TO TAKE PHOTOS, PT BECOMING AGGRESSIVE AND COMBATIVE.
--- NOTE | 2019-05-03 15:10 | NUR ---
Discharge instructions reviewed with patient/family. Patient receptive and verbalizes understanding. Follow-up care arranged. Written instructions given to patient/family. ETTA ALVAREZ
--- NOTE | 2019-05-04 07:35 | NUR ---
PHYSICAL THERAPY CO-SIGN I approve of the Physical Therapy notes written above. Nuha Wagoner PT
--- NOTE | 2019-05-04 07:51 | NUR ---
OCCUPATIONAL THERAPY CO-SIGN I approve of the Occupational Therapy notes written above. OC ELMORE, OTR/L
== END 2019-05-03 15:10 | disposition other institution (70) | DRG 689 ==
LOC: ED 11:56 → EDHOLD 15:09 → 5E 15:09
PROVIDERS: Emergency Medicine; Internal Medicine; ADMIT Internal Medicine
PROC: 30233N1 Transfusion of Nonautologous Red Blood Cells into Peripheral Vein, Percutaneous Approach (ICD-10-PCS; principal; 2019-04-27)
DX: N39.0 Urinary tract infection, site not specified (principal); G93.41 Metabolic encephalopathy; S32.591A Other specified fracture of right pubis, initial encounter for closed fracture; S32.10XA Unspecified fracture of sacrum, initial encounter for closed fracture; I48.21 Permanent atrial fibrillation; E44.0 Moderate protein-calorie malnutrition; I50.20 Unspecified systolic (congestive) heart failure; D64.9 Anemia, unspecified; R62.7 Adult failure to thrive; G30.1 Alzheimer's disease with late onset; F02.80 Dementia in other diseases classified elsewhere, unspecified severity, without behavioral disturbance, psychotic disturbance, mood disturbance, and anxiety; B96.1 Klebsiella pneumoniae [K. pneumoniae] as the cause of diseases classified elsewhere; E03.9 Hypothyroidism, unspecified; I11.0 Hypertensive heart disease with heart failure; W19.XXXA Unspecified fall, initial encounter; Y93.89 Activity, other specified; Y92.89 Other specified places as the place of occurrence of the external cause; Y99.8 Other external cause status; Z88.0 Allergy status to penicillin; Z79.01 Long term (current) use of anticoagulants; Z86.73 Personal history of transient ischemic attack (TIA), and cerebral infarction without residual deficits; Z68.20 Body mass index [BMI] 20.0-20.9, adult

== ENCOUNTER → 2019-05-18 | Outpatient (CLI) | payer MEDICARE ==
[~2019-05-18] MED LIST changes: +CARDIZEM LA180 MG PO; +COL-RITE100 M1 PO; +INVEGA6 MG PO; +MEGACE 40400 MG/10 PO; +MILK OF MA400 MG/5 M PO; +RIVASTIGMINE TAR6 M1 PO; +TOPROL XL25 MG PO
== END | disposition home or self-care (01) ==
LOC: ORTHO 00:17
DX: S32.591D Other specified fracture of right pubis, subsequent encounter for fracture with routine healing (principal); X58.XXXD Exposure to other specified factors, subsequent encounter

== ENCOUNTER 2019-11-03 11:44 | Inpatient (IN) | payer MEDICARE ==
[~2019-11-03] VITALS: Ht 172.7 cm; Wt 64.4 kg
[~2019-11-03 11:44] MED LIST changes: +FLUDROCORTISON0.1 MG PO; +WARFARIN SODIUM1 MG PO
[2019-11-03 11:58] VITALS: BP 129/87
[2019-11-03 12:20] LABS: BASO % 0.4 % (0.0-1.0); EOS % 0.6 % (1.0-4.0); HEMATOCRIT 38.7 % (37.0-47.0); LYMPH # 1.8 10*3/uL (1.3-4.4); LYMPH % 25.6 % (27.0-41.0); MEAN CELL VOLUME 81.6 fl (81.0-99.0); MEAN CORPUSCULAR HGB 24.9 pg (27.0-31.0); MEAN CORPUSCULAR HGB CONC 30.5 g/dl (33.0-37.0); MONO # 0.5 10*3/uL (0.1-1.0); MONO % 7.3 % (3.0-9.0); NEUT # 4.7 10*3/uL (2.3-7.9); NEUT % 65.7 % (47.0-73.0); PLATELET COUNT AUTOMATED 248 10*3/uL (130-400); RED BLOOD COUNT 4.74 10*6/uL (4.10-5.10); RED CELL DISTRI WIDTH 17.4 % (0-14.5); WHITE BLOOD COUNT 7.1 10*3/uL (4.8-10.8)
[2019-11-03 12:34] LABS: ALBUMIN 2.7 gm/dl (3.1-4.5); CREATININE 1.1 mg/dL (0.55-1.02); TOTAL PROTEIN 5.7 gm/dL (6.4-8.2)
--- NOTE | 2019-11-03 12:54 | NUR ---
GAVE PT WARM BLANKET SPOKE WITH RELATIVE ON PHONE PT HISTORY OF MASSIVE STROKE IN 2018 AND SEVERAL TIA'S PT ALSO HISTORY OF DEMENTIA WILL UPDATE PT MED HISTORY
[2019-11-03 13:50] LABS: BILIRUBIN NEGATIVE (NEGATIVE); CLARITY SL CLOUDY (CLEAR); COLOR YELLOW (YELLOW); GLUCOSE NEGATIVE (NEGATIVE)
[2019-11-03 13:51] VITALS: BP 132/86
[2019-11-03 13:51] LABS: BLOOD NEGATIVE (NEGATIVE); KETONE NEGATIVE (NEGATIVE); LEUKO ESTERASE TRACE (NEGATIVE); NITRITE NEGATIVE (NEGATIVE); SPECIFIC GRAVITY 1.015 (1.005-1.030); UROBILINOGEN 0.2 E.U./dl (0.2-1.0)
--- NOTE | 2019-11-03 13:52 | NUR ---
PT IN BED RESTING RESP EASY NO SIGN OF DISTRESS
[2019-11-03 13:56] LABS: BACTERIA TRACE; EPITHELIAL CELLS 16-20; MUCOUS 1+
--- NOTE | 2019-11-03 14:35 | NUR ---
CONTACT ALAN AT
[2019-11-03 15:58] VITALS: BP 136/71
--- NOTE | 2019-11-03 16:29 | NUR ---
WOUNDS EVALUATED BY DR RODRIGUEZ PICTURE OF HEEL WOUND
--- NOTE | 2019-11-03 16:50 | NUR ---
Time: 1649 A 74 year old FEMALE admitted to under services of BHARATH BERNAL MD. Pt. arrived via bed from ER. Chief complaint: DROWSINESS, INCREASED CONFUSION, INABILITY TO AMBULATE. VELMA MONTES DE OCA
[2019-11-03 17:04] VITALS: BP 146/90
[2019-11-03] MEDS ORDERED: ZOFRAN8 M1 PO (18:15)
[2019-11-03] MEDS ORDERED: FLUDROCORTISON0.1 MG PO (18:17)
[2019-11-03] MEDS ORDERED: GOOD NEIGHBOR M25 M1 PO (18:18)
--- NOTE | 2019-11-03 19:30 | NUR ---
PT RESTING IN BED. VOICES NO CONCERNS AT THIS TIME. RESPS EASY AND NON LABORED. NO S/S OF DISTRESS NOTED. VSS. WHITE BOARD UPDATED. POC DISCUSSED W PT. PT ALERT TO PERSON/ANSWERS QUESTIONS APPROP. BEDRIDDEN. MULTIPLE WOUNDS NOTED- DRESSINGS C/D/I. SAPPHIRE HOSE ON. BILAT HEEL PROTECTORS ON. WILL CONTINUE TO MONITOR. CALL LIGHT WITHIN REACH. BED ALARM ON.
[2019-11-03 20:00] VITALS: BP 113/67
[2019-11-04] VITALS: BP 124/70
--- NOTE | 2019-11-04 04:51 | NUR ---
PT SLEEPING. RESPS EASY AND NON LABORED. NO S/S OF DISTRESS NOTED. CALL LIGHT WITHIN REACH. BED ALARM ON.
--- NOTE | 2019-11-04 04:54 | NUR ---
24 HR chart check completed.
[2019-11-04 08:00] VITALS: BP 130/94
[2019-11-04 12:00] VITALS: BP 116/75
[2019-11-04 16:00] VITALS: BP 112/51
--- NOTE | 2019-11-04 19:30 | NUR ---
PT RESTING IN BED. VOICES NO CONCERNS AT THIS TIME. RESPS EASY AND NON LABORED. NO S/S OF DISTRESS NOTED. VSS. WHITE BOARD UPDATED. POC DISCUSSED W PT. PT STATES SHE DOES NOT WANT TO GO INTO A INTERMEDIATE AND WOULD LIKE TO GO HOME-WILL PUT IN SS MESSAGE. MULTIPLE WOUNDS-DRESSINGS C/D/I. SAPPHIRE HOSE/HEEL PROTECTORS/Q2H TURNS-SKIN PREVENTION INTERVENTIONS MAINTAINED. A/O X3 AT THIS TIME. WILL CONTINUE TO MONITOR. CALL LIGHT WITHIN REACH. BED ALARM ON.
[2019-11-04 20:00] VITALS: BP 116/43
[2019-11-05] VITALS: BP 112/57
--- NOTE | 2019-11-05 04:00 | NUR ---
PT RESTING IN BED. RESPS EASY AND NON LABORED. NO S/S OF DISTRESS NOTED. CALL LIGHT WITHIN REACH. BED ALARM ON.
[2019-11-05 06:59] LABS: BASO % 0.5 % (0.0-1.0); EOS # 0.1 10*3/uL (0.0-0.4); EOS % 1.3 % (1.0-4.0); HEMATOCRIT 37.6 % (37.0-47.0); LYMPH # 1.6 10*3/uL (1.3-4.4); LYMPH % 28.2 % (27.0-41.0); MEAN CELL VOLUME 82.5 fl (81.0-99.0); MEAN CORPUSCULAR HGB 24.3 pg (27.0-31.0); MEAN CORPUSCULAR HGB CONC 29.5 g/dl (33.0-37.0); MEAN PLATELET VOLUME 11.4 fl (9.6-12.3); MONO # 0.4 10*3/uL (0.1-1.0); MONO % 7.9 % (3.0-9.0); NEUT # 3.5 10*3/uL (2.3-7.9); NEUT % 61.9 % (47.0-73.0); PLATELET COUNT AUTOMATED 227 10*3/uL (130-400); RED BLOOD COUNT 4.56 10*6/uL (4.10-5.10); RED CELL DISTRI WIDTH 17.8 % (0-14.5); WHITE BLOOD COUNT 5.6 10*3/uL (4.8-10.8)
[2019-11-05 07:07] LABS: INTERNATIONAL NORM RATIO 1.3 (2.0-3.5)
[2019-11-05 07:22] LABS: BUN 14 mg/dl (7-24); CHLORIDE 113 mmol/L (98-107); POTASSIUM 3.8 mmol/L (3.5-5.1); SODIUM 147 mmol/L (136-145)
--- NOTE | 2019-11-05 07:52 | NUR ---
24 HR chart check completed.
[2019-11-05 08:00] VITALS: BP 127/59
--- NOTE | 2019-11-05 08:00 | NUR ---
Patient resting quietly with no c/o discomfort. Respirations easy and regular. Vital signs stable. No overt distress. KAILA MCDANIELS
--- NOTE | 2019-11-05 08:24 | NUR ---
BIGG RAMIRES [id number] Please refer to the physician's history and physical for past medical history, comorbid conditions, and allergies. Diagnosis: UTI UNABLE TO AMBULATE Sebastián Score: 10,HIGH RISK WOUND DESCRIPTIONS: This nurse along with with Mary Arias RN evaluated patient for skin impairments. Wound Number: 1 Location of the wound: right heel Type of wound: stage 3 Thickness: Full Size: 1.6cm x 0.8cm x 0.1cm Tunneling: none Undermining: none Sinus Tract: none Presence of Exudate: Serosanguineous Amount: Light Color: Red Odor: None Periwound Skin Appearance: Normal Wound edges: approximated Pain (associated with wound): none at time of assessment How does patient state this happened? pt states this has been going on for about 1 year Wound Number: 2 Left heel boggy at time of assessment. No pain at time of assessment. Stearns and blanchable at time of assessment. Wound Number: 3 Location of the wound: coccyx Type of wound: stage 2 Thickness: Partial Size: 0.6cm x 0.6cm x 0.1cm Tunneling: none Undermining: none Sinus Tract: none Presence of Exudate: none Amount: none Color: Red Odor: None Periwound Skin Appearance: scar tissue Wound edges: approximated Pain (associated with wound): none at time of assessment How does patient state this happened? pt unable to state how this happened Wound Number: 4 Location of the wound: left buttocks Type of wound: stage 2 Thickness: Partial Size: 1.3cm x 1.0cm x 0.1cm Tunneling: none Undermining: none Sinus Tract: none Presence of Exudate: none Amount: none Color: Red Odor: None Periwound Skin Appearance: Normal Wound edges: scar tissue Pain (associated with wound): none at time of assessment How does patient state this happened? pt unable to state how this happened Surface the patient is resting on: Isoflex SKIN PREVENTION RECOMMENDATION: 1. Pressure redistribution support surface as appropriate 2. Elevate heels 3. Remove boots/TEDS every shift and reapply 4. Head of bed 30 degrees as tolerated 5. Assess nutrition and hydration 6. Manage moisture 7. Avoid the use of containment devices while in bed 8. Use absorptive products on surfaces limit layers of linens on bed 9. Turn and reposition every 1-2 hours in bed and every 1 hour in chair as tolerated 10. Weight shifts every 15 minutes while up in chair 11. Offloading with pillows or device to keep heels elevated off bed 12. Monitor skin at least every shift 13. Inspect under medical devices twice a day WOUND TREATMENT RECOMMENDATIONS: Continue heel raiser pro boots to bilateral feet while in bed Wheelchair cushion when oob D/c dressing change order to right heel and buttocks Stage 3 guidelines: Cleanse right heel with nss and apply sureprep around the wound therahoney to wound bed and cover with optifoam gentle every 2 days and prn for soiling Stage 2 guidelines: Cleanse coccyx and left buttocks with nss and apply sureprep around the wound therahoney to wound bed and cover with optifoam gentle every 2 days and prn for soiling. Patient will follow up in the wound care center upon discharge this week if need to reschdule will do
--- NOTE | 2019-11-05 08:36 | NUR ---
PHYSICAL THERAPY Screen received as well as PT eval will follow thank you. Nuha Wagoner PT
--- NOTE | 2019-11-05 09:00 | NUR ---
Mattress Maker in to talk to patient. Patient states lives at home alone with a friend and caregiver looking in after her. There are 0 steps in the home. There is a stair lift. Physician: Dr. Nicole lBair Pharmacy: [facility] health services: [facility] Patient's level of ADLs: MINIMAL ASSIST Patient has working utilities: yes DME: walker Follow-up physician's appointment after d/c: she prefers to make her own follow up appt after discharge Does patient want to access PORTAL?: no Discharge plan discussed with patient. She lives at home alone with a friend and caregiver looking in on her. She states she needs minimal assistance with her ADLs and ambulates with a walker. Discussed short term rehab and she is agreeable. When provided with a list of facilities she chose [facility] as that is where Nikki mentioned the last time she was admitted in the hospital. senior program planner notified and following. BURTON CARR
--- NOTE | 2019-11-05 10:39 | NUR ---
PHYSICAL THERAPY Physical Therapy evaluation completed on 4E with full evaluation to follow. Moderate complexity PT evaluation per chart review and evaluation, [id number]. Recommend physical therapy per plan of care and SNF upon discharge. Thank you for this referral. Debbie Nelson,PT,DPT
--- NOTE | 2019-11-05 11:01 | NUR ---
Occupational Therapy evaluation completed on four with full evaluation to follow. Recommend occupational therapy per plan of care and SNF upon discharge. Thank you for this referral. Xiomy Mansfield OTR/L
--- NOTE | 2019-11-05 11:39 | NUR ---
Patient is requesting a referral to [facility] facility. Contacted [facility] who confirmed they do have beds available. I faxed referral for review. Patient requires negative covid test prior to admission to [facility]. Test has been ordered, waiting on results of test and for [facility] to review/accept
[2019-11-05 12:00] VITALS: BP 119/83
[2019-11-05 16:00] VITALS: BP 120/82
[2019-11-05 20:00] VITALS: BP 116/54
--- NOTE | 2019-11-05 20:00 | NUR ---
ASSUMED CARE OF PATIENT. ASSESSMENT IS COMPLETE. BED IS LOW, LOCKED, AND CALL LIGHT IS WITHIN REACH.
[2019-11-06] VITALS: BP 130/54
--- NOTE | 2019-11-06 02:00 | NUR ---
PATIENT IS TEARFUL STATING "MY BACK HURTS".
--- NOTE | 2019-11-06 02:22 | NUR ---
ONE TIME TYLENOL GIVEN AT THIS TIME IN APPLESAUSE. PATIENT TOLERATED WELL. WILL CONTINUE TO MONITOR.
--- NOTE | 2019-11-06 03:22 | NUR ---
TYLENOL EFFECTIVE PER PATIENT. CALL LIGHT IS WITHIN REACH.
--- NOTE | 2019-11-06 04:58 | NUR ---
0600 MEDICATION GIVEN IN APPLESAUSE. PATIENT TOLERATED WELL. CALL LIGHT IS WITHIN REACH.
--- NOTE | 2019-11-06 07:31 | NUR ---
24 HR chart check completed.
--- NOTE | 2019-11-06 07:36 | NUR ---
Patient has been accepted to [facility]. As soon as patients Covid test results return (and are negative) patient can go. Waiting on results.
[2019-11-06 08:00] VITALS: BP 128/56
--- NOTE | 2019-11-06 08:00 | NUR ---
Patient resting quietly with no c/o discomfort. Respirations easy and regular. Vital signs stable. No overt distress. KAILA MCDANIELS
--- NOTE | 2019-11-06 11:00 | NUR ---
OT NOTE Pt was seen this A.M. 1:1 for 20 minute OT session. Upon arrival pt was supine in bed. Pt identified by name and and had no complaints at this time. Pt transferred supine to sit EOB with Shorty for assist with UB and moving her hips to the EOB. Upon inital rise pt had complaints of feeling dizzy resulting in education on visual fixation technique. After aprox 10-15 seconds pt had no other complaints of feeling dizzy. While seated EOB pt donned B socks with Shorty for her RLE and SBA for her LLE using compensatory techique of bringing her leg up to knee level. Challenged pt's dynamic sitting balance while weight shifting, crossing midline, and reaching over all planes and pt was able to maintain G- sitting balance throughout. Pt then completed multiple sit to stand transfers from bed level with Shorty and use of w/w for UE support. Challenged pt's static standing tolerance needed for increased I in self care tasks and functional transfers, pt was able to tolerate aprox 60 seconds before sitting due to fatigue. After a seated rest break pt completed a second sit to stand from bed level with Shorty and use of w/w for UE support. Challenged pt's dynamic standing balance while weight shifting, crossing midline, and reaching over all planes which pt was able to maintain G- standing balance throughout. Stand pivot completed from the chair to the EOB with Shorty and use of w/w. There she was left with call light in hand, tray table in place, and body alarm activated for safety. Continue with rec D/C plan to SNF. NITO Bernardo
--- NOTE | 2019-11-06 11:34 | NUR ---
Reached out to [facility] again to see if they will accept patient with a pending covid test or if the results had to be in. She stated she has asked their corporate office but they have not responded yet.
--- NOTE | 2019-11-06 11:37 | NUR ---
PHYSICAL THERAPY Patient seen this am 1;1 for therapy visit and was supine in bed upon therapist arrival. Patient identified by name / and reports no c/o's of pain at this time. OT assistant athletic trainer was also present this morning for observation as patient transfers supine to sit EOB sith MOD A. Patient c/o's of mild dizziness and instructed on visual fixation technique, reporting no dizziness within 10-15 seconds of upright EOB static sit. Patient instructed to continue visual fixation during sit to stand transfer, MIN A, with use of wh walker standing support, tolerating approx 1 minute static stand x several trials. Patient also completed SPT to bedside chair, wh walker, MIN A, demonstrating slow steady step sequence, however was very cautious throughout entire transfer. Patient remained in chair with call light, tray table, telephone and body alarm for safety. Will continue per POC as tolerated, total treatment time 14 minutes. Jamar Cohen, LINE TESTER
[2019-11-06 12:00] VITALS: BP 120/79
--- NOTE | 2019-11-06 12:00 | NUR ---
Patient resting quietly with no c/o discomfort. Respirations easy and regular. Vital signs stable. No overt distress. KAILA MCDANIELS
--- NOTE | 2019-11-06 13:58 | NUR ---
SPEECH THERAPY Patient referred for MBS due to cough while eating and concerns for possible aspiration PNA. Patient has primary diagnosis of UTI with PMHx s/f CVA, a-fib, TIA, and dysphagia. She is currently on a regular diet with thin liqiuds. Patient endorsed occassioal coughing during meals. Oral mech exam revealed reduced lingual and labial strength and coordination with weak and non-productive cough. Cough was wet at baseline. She presented with low vocal intensity, making her responses minimally audible. Patient assessed with pureed and soft consistencies with sips of nectar and honey-like liquids. Following initial bite of appelesauce, patient demonstrated mild vallecular residue. This residue increased following bite of banana, and furhter increased with a bite of a sandwich. Patient cued to perform volitional dry swallow which assisted mildly in reducing resiude, however vallecular residue remained at a moderate-severe amount with addition of mild pyriform sinus residue. Patient provided with sip of nectar-like liquid. When asked by clinician, she verbalized preference for a straw. Sip of nectar-like liquid via straw resulted in aspiration with delayed cough which did not clear material from the airway. Straw was removed and patient cued to take small, single sip via cup, again resulting in aspiration. Moderate vallecular residue remained with mild pyriform sinus and PPW resiude as well. Patient given sips of honey-like liquid via cup, with no penetration or aspiration observed. Vellecular residue remained at moderate severity. Patient presents with moderate pharyngeal dysphagia characterized by aspiration of nectar-like liquids and moderate-severe vellecular reisude with mild pyriform sinus and PPW residue. She is recommended soft diet with honey-like liquids with use of safe swallowing strategies. Compensatory strategies including taking small bites and small sips, performing double swallow, alternating between solids and liquids, and remaining upright during PO intake and for 30 minutes following a meal are recommended and required to assist in reduction of pharyngeal residues to increase patient safety during PO intake. Follow up speech therapy is recommended to ensure safety and tolerance of recommended diet throughout a meal with adherence of safe swallowing strategies. Additionally recommend pharyngeal strengthening exercises, not to be performed prior to a meal. Results and recommendations were shared with patient. Will phone nurse discussing results and recommmendations with requirement of safe swallowing strategies. Patient may be appropraite for re-assessment following swallow treatment paired with positional compensatory strategies. Thank you for your consultation. Viktoria Bright MA [facility]-DEVELOPER DESIGNER
--- NOTE | 2019-11-06 14:23 | NUR ---
Have reached out to Kristine at [facility] multiple times regarding covid test results or if patient can go while test is still pending. She states she has not gotten an answer from [facility] [employer] yet. Still waiting on covid results.
--- NOTE | 2019-11-06 14:37 | NUR ---
Notified Dr. Blair patient can go to [facility] when medically stable.
--- NOTE | 2019-11-06 14:39 | NUR ---
[facility] stating patient is ok to go while Covid test is pending as long as patient is not being treated or symptomatic. Notified Kristine at [facility], patient will be discharged tomorrow morning.
--- NOTE | 2019-11-06 14:49 | NUR ---
Kristine from [facility] sheduled their transportation to [facility]er patient tomorrow morning (11/07/2019) at 11:00 am;
[2019-11-06 16:00] VITALS: BP 90/53
[2019-11-07] VITALS: BP 123/69
[2019-11-07 08:00] VITALS: BP 112/72
[2019-11-07] MEDS ORDERED: DOXYCYCLINE MO100 M1 PO (08:44)
[2019-11-07] MEDS ORDERED: RISPERIDONE1 MG PO (08:44)
--- NOTE | 2019-11-07 09:26 | NUR ---
Patient is discharged to [facility] via [facility] at 11:00 am. Nursing/snack stewardess notified. D/C orders faxed.
--- NOTE | 2019-11-07 09:27 | NUR ---
SPEECH PATHOLOGY Patient was seen for treatment this am during breakfast meal. Patient was sitting upright in bedside chair and able to self feed. Patient was alert and cooperative but difficult to hear due to reduced vocal intensity. She consumed solid foods and honey thick liquids. Results and recommendations from recent MBS were shared. Patient was not able to recall safe swallow strategies and denied any difficulty swallowing. She displayed slow biting due to loose fitting dentures. No oral residue, cough or wet vocal quality were displayed during the meal. Her intake was fair. Throughout the meal patient required cues to use strategies such as double swallows and alternating liquid and solid. Patient is scheduled for discharge from facility today. Recommend she continue with soft foods, honey thick liquids and dysphagia therapy to ensure safe tolerance of diet. Thank you for this referral. It has been a pleasure taking part in this patient's care. BELEN PIPER MSCCC-EDGE WORKER
--- NOTE | 2019-11-07 10:36 | NUR ---
DISCHARGE PHOTOS OF WOUNDS TAKEN.
--- NOTE | 2019-11-07 10:55 | NUR ---
NURSE TO NURSE REPORT GIVEN TO NURSE RECEIVING PATIENT AT [facility].
--- NOTE | 2019-11-07 11:32 | NUR ---
Discharge instructions reviewed with patient/family. Patient receptive and verbalizes understanding. Follow-up care arranged. Written instructions given to patient/family. DISCHARGE WOUND PHOTOS TAKE, IV REMOVED. PATIENT LEFT IN CARE OF [facility]. SILVIA WALL
--- NOTE | 2019-11-07 12:24 | NUR ---
Notified [facility] that patient is aspirating and needs a soft diet per Dr. Blair.
--- NOTE | 2019-11-07 12:26 | NUR ---
Gasoline Tractor Operator NOE at [facility] notified of patient aspirating on modified barium swallow and per Dr. Blair patient needs a soft diet.
--- NOTE | 2019-11-07 14:34 | NUR ---
Received call from Dr. Blair. Discussed speech therapy note regarding recommending soft food, honey thick liquids, and dysphagia therapy. She asked that the speech therapy note be faxed to [facility]. Speech therapy note faxed to [facility].
--- NOTE | 2019-11-08 07:43 | NUR ---
PHYSICAL THERAPY CO-SIGN I approve of the Physical Therapy notes written above. Nuha Wagoner PT
--- NOTE | 2019-11-08 07:57 | NUR ---
Late Note: Notified and faxed [facility] patient's Covid - 19 test results were negative.
--- NOTE | 2019-11-08 09:40 | NUR ---
OCCUPATIONAL THERAPY CO-SIGN I approve of the Occupational Therapy notes written above. Ana Paula Price OTR/L
== END 2019-11-07 11:32 | disposition other institution (70) | DRG 641 ==
LOC: ED 11:44 → EDHOLD 14:58 → 4E 14:58
PROVIDERS: Emergency Medicine; ADMIT Internal Medicine
PROC: BD1BYZZ Fluoroscopy of Mouth/Oropharynx using Other Contrast (ICD-10-PCS; principal; 2019-11-06)
DX: R62.7 Adult failure to thrive (principal); I48.21 Permanent atrial fibrillation; F33.2 Major depressive disorder, recurrent severe without psychotic features; E44.0 Moderate protein-calorie malnutrition; E87.0 Hyperosmolality and hypernatremia; E87.8 Other disorders of electrolyte and fluid balance, not elsewhere classified; R53.1 Weakness; F01.50 Vascular dementia, unspecified severity, without behavioral disturbance, psychotic disturbance, mood disturbance, and anxiety; Z66 Do not resuscitate; Z51.5 Encounter for palliative care; E03.9 Hypothyroidism, unspecified; D15.1 Benign neoplasm of heart; Z79.01 Long term (current) use of anticoagulants; Z88.0 Allergy status to penicillin; Z87.891 Personal history of nicotine dependence; Z86.73 Personal history of transient ischemic attack (TIA), and cerebral infarction without residual deficits; Z03.818 Encounter for observation for suspected exposure to other biological agents ruled out; Z68.21 Body mass index [BMI] 21.0-21.9, adult

== ENCOUNTER 2019-12-28 21:09 | Inpatient (IN) | payer MEDICARE ==
[~2019-12-28] VITALS: Ht 172.7 cm; Wt 71.8 kg
[~2019-12-28 21:09] MED LIST changes: +DOXYCYCLINE MO100 M1 PO; +GOOD NEIGHBOR M25 M1 PO
[2019-12-28 21:17] VITALS: BP 131/98
[2019-12-28 23:47] LABS: BASO # 0.1 10*3/uL (0.0-0.1); BASO % 0.6 % (0.0-1.0); EOS % 0.3 % (1.0-4.0); HEMATOCRIT 40.6 % (37.0-47.0); LYMPH # 0.8 10*3/uL (1.3-4.4); LYMPH % 10.2 % (27.0-41.0); MEAN CELL VOLUME 83.2 fl (81.0-99.0); MEAN CORPUSCULAR HGB 24.4 pg (27.0-31.0); MEAN CORPUSCULAR HGB CONC 29.3 g/dl (33.0-37.0); MEAN PLATELET VOLUME 10.1 fl (9.6-12.3); MONO # 0.2 10*3/uL (0.1-1.0); MONO % 2.9 % (3.0-9.0); NEUT # 6.8 10*3/uL (2.3-7.9); NEUT % 85.7 % (47.0-73.0); PLATELET COUNT AUTOMATED 280 10*3/uL (130-400); RED BLOOD COUNT 4.88 10*6/uL (4.10-5.10); RED CELL DISTRI WIDTH 17.1 % (0-14.5)
[2019-12-28 23:57] LABS: ACT PARTIAL THROMBO TIME 34.5 SECONDS (20.0-32.1); INTERNATIONAL NORM RATIO 2.4 (2.0-3.5)
[2019-12-29 00:03] LABS: ALBUMIN 3.1 gm/dl (3.1-4.5); ALKALINE PHOSPHATASE 91 U/L (45-117); BUN 17 mg/dl (7-24); CHLORIDE 108 mmol/L (98-107); CREATININE 0.97 mg/dL (0.55-1.02); LIPASE 88 U/L (73-393); POTASSIUM 4.3 mmol/L (3.5-5.1); SGOT/AST 8 IU/L (3-35); SGPT/ALT 20 U/L (12-78); SODIUM 143 mmol/L (136-145); TOTAL PROTEIN 6.9 gm/dL (6.4-8.2)
[2019-12-29 00:04] LABS: TROPONIN I < 0.015 ng/ml (<0.045)
[2019-12-29 02:36] VITALS: BP 155/92
[2019-12-29 03:05] VITALS: BP 152/82
[2019-12-29] MEDS ORDERED: RIVASTIGMINE TAR3 M1 PO (04:56)
[2019-12-29 06:06] LABS: BUN 15 mg/dl (7-24); CHLORIDE 110 mmol/L (98-107); CREATININE 0.88 mg/dL (0.55-1.02); POTASSIUM 4.2 mmol/L (3.5-5.1); SODIUM 142 mmol/L (136-145)
[2019-12-29 08:00] VITALS: BP 134/66
[2019-12-29 10:34] LABS: BACTERIA 3+; BILIRUBIN NEGATIVE; BLOOD NEGATIVE (NEGATIVE); CLARITY CLEAR (CLEAR); COLOR YELLOW (YELLOW); GLUCOSE NEGATIVE; KETONE NEGATIVE; LEUKO ESTERASE 2+ (NEGATIVE); NITRITE POSITIVE (NEGATIVE); UROBILINOGEN 0.2 E.U./dl (0.0-1.0); WBC 21-30 wbc/hpf (0-5)
[2019-12-29 12:00] VITALS: BP 141/72
[2019-12-29 16:00] VITALS: BP 111/57
[2019-12-29 20:00] VITALS: BP 109/49
[2019-12-30] VITALS: BP 117/60
[2019-12-30 08:00] VITALS: BP 149/89
[2019-12-30 12:00] VITALS: BP 116/70
[2019-12-30 16:00] VITALS: BP 138/57
[2019-12-30 20:00] VITALS: BP 120/62
[2019-12-31] VITALS: BP 132/57
[2019-12-31 08:00] VITALS: BP 136/92
[2019-12-31 12:00] VITALS: BP 104/79
[2019-12-31] MEDS ORDERED: ATIVAN ORAL C2 MG/ML PO (12:59)
[2019-12-31] MEDS ORDERED: MORPHINE S100 MG/5 M PO (12:59)
== END 2019-12-31 15:46 | disposition hospice, home (50) | DRG 292 ==
LOC: ED 21:09 → 4E 12-29 00:52 → EDHOLD 12-29 00:52 → 4E 12-29 00:58
PROVIDERS: Physician Assistant; ADMIT Internal Medicine; ATTEND Internal Medicine
DX: I11.0 Hypertensive heart disease with heart failure (principal); F33.9 Major depressive disorder, recurrent, unspecified; I48.21 Permanent atrial fibrillation; I31.3 Pericardial effusion (noninflammatory); G45.9 Transient cerebral ischemic attack, unspecified; J90 Pleural effusion, not elsewhere classified; I50.33 Acute on chronic diastolic (congestive) heart failure; E03.9 Hypothyroidism, unspecified; J44.9 Chronic obstructive pulmonary disease, unspecified; Z51.5 Encounter for palliative care; G44.209 Tension-type headache, unspecified, not intractable; R82.71 Bacteriuria; G30.1 Alzheimer's disease with late onset; R62.7 Adult failure to thrive; Z66 Do not resuscitate; F02.80 Dementia in other diseases classified elsewhere, unspecified severity, without behavioral disturbance, psychotic disturbance, mood disturbance, and anxiety; Z79.01 Long term (current) use of anticoagulants; Z88.0 Allergy status to penicillin; Z86.73 Personal history of transient ischemic attack (TIA), and cerebral infarction without residual deficits; Z68.20 Body mass index [BMI] 20.0-20.9, adult

== ENCOUNTER 2020-03-09 10:20 | Observation (INO) | payer MEDICARE ==
[~2020-03-09] VITALS: Ht 174 cm; Wt 69.5 kg
[~2020-03-09 10:20] MED LIST changes: +ATIVAN ORAL C2 MG/ML PO; +CARDIZEM LA120 MG PO; -CARDIZEM LA180 MG PO; +MORPHINE S100 MG/5 M PO; +RIVASTIGMINE TAR3 M1 PO
[2020-03-09 10:27] VITALS: BP 102/43
[2020-03-09 11:03] LABS: BASO # 0.1 10*3/uL (0.0-0.1); BASO % 0.6 % (0.0-1.0); EOS % 0.5 % (1.0-4.0); HEMATOCRIT 40.3 % (37.0-47.0); LYMPH # 1.4 10*3/uL (1.3-4.4); LYMPH % 18.2 % (27.0-41.0); MEAN CELL VOLUME 80.3 fl (81.0-99.0); MEAN CORPUSCULAR HGB 23.7 pg (27.0-31.0); MEAN CORPUSCULAR HGB CONC 29.5 g/dl (33.0-37.0); MONO # 0.5 10*3/uL (0.1-1.0); MONO % 6.1 % (3.0-9.0); NEUT # 5.8 10*3/uL (2.3-7.9); NEUT % 74.3 % (47.0-73.0); PLATELET COUNT AUTOMATED 287 10*3/uL (130-400); RED BLOOD COUNT 5.02 10*6/uL (4.10-5.10); RED CELL DISTRI WIDTH 18.4 % (0-14.5); WHITE BLOOD COUNT 7.8 10*3/uL (4.8-10.8)
[2020-03-09 11:14] LABS: ACT PARTIAL THROMBO TIME 34.3 SECONDS (20.0-32.1); INTERNATIONAL NORM RATIO 2.2 (2.0-3.5)
[2020-03-09 11:20] LABS: ALKALINE PHOSPHATASE 101 U/L (45-117); BUN 14 mg/dl (7-24); CHLORIDE 108 mmol/L (98-107); CREATININE 1.14 mg/dL (0.55-1.02); POTASSIUM 3.6 mmol/L (3.5-5.1); SGOT/AST 18 IU/L (3-35); SGPT/ALT 24 U/L (12-78); SODIUM 143 mmol/L (136-145); TOTAL PROTEIN 6.4 gm/dL (6.4-8.2)
[2020-03-09 11:24] LABS: TROPONIN I < 0.015 ng/ml (<0.045)
[2020-03-09 11:54] VITALS: BP 97/58
--- NOTE | 2020-03-09 13:12 | NUR ---
Medical Lab Technologist/POA called for update. Pt w/ intermitten SB 55 observedAsymptomatic. Wants to go home. Potassium 2.1 per PA.
--- NOTE | 2020-03-09 13:42 | NUR ---
1345: Chen inserted for urine collection.
[2020-03-09 14:22] LABS: BILIRUBIN Negative (Negative); BLOOD Negative (Negative); CLARITY Clear (Clear); COLOR Yellow (Yellow); GLUCOSE Negative (Negative); KETONE Negative (Negative); LEUKO ESTERASE 3+ (Negative); NITRITE Negative (Negative); SPECIFIC GRAVITY 1.015 (1.001-1.030)
[2020-03-09 14:29] LABS: BACTERIA 2+; RBC 0-2 rbc/hpf (0-2); WBC 21-30 wbc/hpf (0-5)
--- NOTE | 2020-03-09 15:05 | NUR ---
1300 Page INSERTED TO COLLECT URINE. vss.
--- NOTE | 2020-03-09 16:39 | NUR ---
Ardian THE poa CALLED AND WAS UPDATED RE dX, PLAN TON ADMIT. qUESTIONS WHY SHE ALWAYS HAS A DX OF uti. vss. bp 134/50, hr 87, o2 SAT 96, tEMP 98.1
--- NOTE | 2020-03-09 17:20 | NUR ---
fIRST DOSE OF rOCEPHIN INITIATED @1700 VIA [employer] PUMP.
[2020-03-09 18:18] VITALS: BP 146/89
--- NOTE | 2020-03-09 18:27 | NUR ---
Time: 1799 A 74 year old FEMALE admitted to 5E under services of DR. COLIN SELF,FANTA Walters Pt. arrived via bed from ER. Chief complaint: UTI, FALL. BARTOLO GUERRERO
[2020-03-09 20:00] VITALS: BP 133/73
[2020-03-10] VITALS (7 sets, daily range): BP systolic 122–150; BP diastolic 60–82
[2020-03-11] VITALS: BP 147/57
[2020-03-11 05:56] VITALS: BP 122/67
--- NOTE | 2020-03-11 07:47 | NUR ---
PHYSICAL THERAPY Screen and PT eval received will follow thank you Nuha Wagoner PT
[2020-03-11 08:00] VITALS: BP 156/82
--- NOTE | 2020-03-11 11:10 | NUR ---
PHYSICAL THERAPY Physical Therapy evaluation completed on 5th floor with full evaluation to follow. Recommend physical therapy per plan of care and SNF pending progress with activity and family input. Discussed with CM regarding discharge as pt is ambulatory at home and concerns with limited mobility at this time due to dizziness/lightheadeness. Thank you for this referral. Nuha Wagoner PT
[2020-03-11 12:00] VITALS: BP 144/82
--- NOTE | 2020-03-11 14:59 | NUR ---
Nutritional Support Services Note: Appetite is good for meals, she is eating 75-100% of all meals. She receives a regular diet as ordered. Pt is under Hospice care. Dx of UTI and Syncope. Ht.5'9 Wt.153#. IBW 130-150. December weight 158#. She states she doesn't want anything else at this time. Will provide a night snack. will follow if needed. Lillian Garrison Rdn Ld
[2020-03-11 16:00] VITALS: BP 136/76
[2020-03-11 17:29] LABS: INTERNATIONAL NORM RATIO 1.8 (2.0-3.5)
[2020-03-11 20:00] VITALS: BP 141/67
--- NOTE | 2020-03-11 22:04 | NUR ---
PATIENT'S POA CALLED IN WITH [facility]. UPDATED ON STATUS/PLAN OF CARE.
[2020-03-12] VITALS: BP 106/62
--- NOTE | 2020-03-12 00:44 | NUR ---
PT ASLEEP IN BED. NO S/S OF DISTRESS NOTED. WILL MONITOR. CALL LIGHT IN REACH.
[2020-03-12 07:06] LABS: BASO % 0.6 % (0.0-1.0); EOS # 0.1 10*3/uL (0.0-0.4); EOS % 2.2 % (1.0-4.0); LYMPH # 1.6 10*3/uL (1.3-4.4); LYMPH % 24.6 % (27.0-41.0); MEAN CELL VOLUME 81.1 fl (81.0-99.0); MEAN CORPUSCULAR HGB 24.1 pg (27.0-31.0); MEAN CORPUSCULAR HGB CONC 29.7 g/dl (33.0-37.0); MONO # 0.7 10*3/uL (0.1-1.0); MONO % 10.2 % (3.0-9.0); NEUT % 62.2 % (47.0-73.0); PLATELET COUNT AUTOMATED 241 10*3/uL (130-400); RED BLOOD COUNT 4.56 10*6/uL (4.10-5.10); WHITE BLOOD COUNT 6.4 10*3/uL (4.8-10.8)
[2020-03-12 07:12] LABS: INTERNATIONAL NORM RATIO 1.7 (2.0-3.5)
[2020-03-12 07:22] LABS: BUN 11 mg/dl (7-24); CHLORIDE 111 mmol/L (98-107); CREATININE 0.92 mg/dL (0.55-1.02); POTASSIUM 3.2 mmol/L (3.5-5.1); SODIUM 145 mmol/L (136-145)
[2020-03-12 07:55] VITALS: BP 124/78
[2020-03-12 08:00] VITALS: BP 126/68
--- NOTE | 2020-03-12 09:00 | NUR ---
CM in to see patient. No new needs or request at this time. She states she lives at home and plans to return home with her [facility]. shake out worker following.
--- NOTE | 2020-03-12 10:10 | NUR ---
Pt cleared for PT by RN. Pt denies being able to tolerate therapy today due to "head is too bad" and "room is spinning." Rn notified of denial. Chacho Richardsonn, FASHION CONSULTANT
--- NOTE | 2020-03-12 10:12 | NUR ---
DR. SHAW ENTERING DISCHARGE ORDERS FOR TODAY. PATIENT WILL RESUME [facility] AT HOME. NOTIFIED THE OFFICE STAFF AT [facility] THAT DISCHARGE WILL BE TODAY. PER STAFF, THEY WILL NOTIFY THE PATIENT'S FAMILY THAT PATIENT NEEDS SEEN BY THE HOST/HOSTESS RESTAURANT PRIOR TO RESUMING THE SERVICES DUE TO TWO RECENT HOSPITAL ADMISSIONS.
--- NOTE | 2020-03-12 11:14 | NUR ---
ASSEMBLER SURGICAL GARMENT RECEIVED CALL FROM [facility]. ASSEMBLER SURGICAL GARMENT INFORMED OF DISCHARGE. ASSEMBLER SURGICAL GARMENT SPOKE WITH [facility] AND ARRANGED FOR [facility] TO TRANSPORT THE PATIENT AT HOME AT 1PM. ASSEMBLER SURGICAL GARMENT SPOKE WITH [facility] AND SHE WILL BE THERE TO RECEIVE THE PATIENT. ASSEMBLER SURGICAL GARMENT SPOKE WITH [facility] AGAIN AND CONFIRMED TRANSPORTATION TIME. ASSEMBLER SURGICAL GARMENT TO FAX [employer] TO [facility].
--- NOTE | 2020-03-12 11:19 | NUR ---
PREPARING PATIENT FOR DISCHARGE HOME AT 1PM BY [facility].
--- NOTE | 2020-03-12 11:30 | NUR ---
Discharge instructions reviewed with patient. Patient receptive and verbalizes understanding. Follow-up care arranged. Written instructions given to patient. ARTURO TAN
[2020-03-12 12:00] VITALS: BP 127/54
--- NOTE | 2020-03-12 13:28 | NUR ---
PATIENT DISCHARGED TO HOME BY [facility] AT THIS TIME.
--- NOTE | 2020-03-14 07:10 | NUR ---
PHYSICAL THERAPY CO-SIGN I approve of the Physical Therapy notes written above. Nuha Wagoner PT
== END 2020-03-12 13:28 | disposition hospice, home (50) ==
LOC: ED 10:20 → EDHOLD 16:01 → 5E 16:01
PROVIDERS: Physician Assistant; ADMIT Internal Medicine; ATTEND Internal Medicine
DX: R42 Dizziness and giddiness (principal); R55 Syncope and collapse; I11.0 Hypertensive heart disease with heart failure; I50.32 Chronic diastolic (congestive) heart failure; I48.91 Unspecified atrial fibrillation; J44.9 Chronic obstructive pulmonary disease, unspecified; G30.9 Alzheimer's disease, unspecified; F02.80 Dementia in other diseases classified elsewhere, unspecified severity, without behavioral disturbance, psychotic disturbance, mood disturbance, and anxiety; E03.9 Hypothyroidism, unspecified; F32.9 Major depressive disorder, single episode, unspecified; N39.0 Urinary tract infection, site not specified

== ENCOUNTER 2020-03-23 01:44 | Inpatient (IN) | payer MEDICARE ==
[~2020-03-23] VITALS: Ht 165.1 cm; Wt 70.4 kg
[2020-03-23 01:52] VITALS: BP 124/48
[2020-03-23 02:41] LABS: BASO # 0.1 10*3/uL (0.0-0.1); BASO % 0.8 % (0.0-1.0); EOS # 0.1 10*3/uL (0.0-0.4); EOS % 1.2 % (1.0-4.0); HEMATOCRIT 37.8 % (37.0-47.0); LYMPH # 1.4 10*3/uL (1.3-4.4); LYMPH % 19.5 % (27.0-41.0); MEAN CELL VOLUME 81.6 fl (81.0-99.0); MEAN CORPUSCULAR HGB 24.2 pg (27.0-31.0); MEAN CORPUSCULAR HGB CONC 29.6 g/dl (33.0-37.0); MEAN PLATELET VOLUME 10.5 fl (9.6-12.3); MONO # 0.6 10*3/uL (0.1-1.0); MONO % 8.6 % (3.0-9.0); NEUT # 5.1 10*3/uL (2.3-7.9); NEUT % 69.6 % (47.0-73.0); PLATELET COUNT AUTOMATED 295 10*3/uL (130-400); RED BLOOD COUNT 4.63 10*6/uL (4.10-5.10); RED CELL DISTRI WIDTH 19.2 % (0-14.5); WHITE BLOOD COUNT 7.3 10*3/uL (4.8-10.8)
[2020-03-23 02:44] LABS: BILIRUBIN Negative (Negative); BLOOD Negative (Negative); CLARITY Clear (Clear); COLOR Yellow (Yellow); GLUCOSE Negative (Negative); KETONE Negative (Negative); LEUKO ESTERASE 2+ (Negative); NITRITE Negative (Negative); PH 7.5 (4.5-8.0); SPECIFIC GRAVITY 1.015 (1.001-1.030)
[2020-03-23 02:51] LABS: INTERNATIONAL NORM RATIO 2.8 (2.0-3.5)
[2020-03-23 02:59] LABS: ALBUMIN 2.9 gm/dl (3.1-4.5); ALKALINE PHOSPHATASE 118 U/L (45-117); BUN 11 mg/dl (7-24); CHLORIDE 111 mmol/L (98-107); CPK 48 U/L (26-192); CREATININE 0.92 mg/dL (0.55-1.02); POTASSIUM 3.9 mmol/L (3.5-5.1); SGOT/AST 11 IU/L (3-35); SGPT/ALT 13 U/L (12-78); SODIUM 147 mmol/L (136-145); TOTAL PROTEIN 6.3 gm/dL (6.4-8.2)
[2020-03-23 03:05] LABS: TROPONIN I < 0.015 ng/ml (<0.045)
[2020-03-23 03:12] LABS: WBC 16-20 wbc/hpf (0-5)
[2020-03-23 04:34] VITALS: BP 129/71
[2020-03-23 08:13] VITALS: BP 121/74
[2020-03-23 12:00] VITALS: BP 138/62
[2020-03-23 16:00] VITALS: BP 117/56
[2020-03-24] VITALS: BP 130/78
[2020-03-24 08:00] VITALS: BP 134/84
[2020-03-24 12:00] VITALS: BP 126/52
[2020-03-24 16:00] VITALS: BP 118/60
[2020-03-24 20:00] VITALS: BP 125/70
[2020-03-25] VITALS: BP 136/64
[2020-03-25 08:00] VITALS: BP 157/98
[2020-03-25 12:00] VITALS: BP 132/64
[2020-03-25 16:00] VITALS: BP 139/78
[2020-03-25 18:00] VITALS: BP 139/78
[2020-03-25 20:00] VITALS: BP 130/46
[2020-03-26] VITALS: BP 127/42
[2020-03-26 07:10] LABS: INTERNATIONAL NORM RATIO 3.4 (2.0-3.5)
[2020-03-26 08:00] VITALS: BP 126/70
[2020-03-26 12:00] VITALS: BP 143/86
== END 2020-03-26 13:47 | disposition other institution (70) | DRG 312 ==
LOC: ED 01:44 → 4E 08:26
PROVIDERS: Emergency Medicine; ADMIT Internal Medicine; ATTEND Internal Medicine
DX: I95.1 Orthostatic hypotension (principal); I48.21 Permanent atrial fibrillation; F33.1 Major depressive disorder, recurrent, moderate; I50.42 Chronic combined systolic (congestive) and diastolic (congestive) heart failure; R62.7 Adult failure to thrive; J44.9 Chronic obstructive pulmonary disease, unspecified; G44.209 Tension-type headache, unspecified, not intractable; E03.9 Hypothyroidism, unspecified; I11.0 Hypertensive heart disease with heart failure; Z66 Do not resuscitate; Z51.5 Encounter for palliative care; E86.0 Dehydration; F01.50 Vascular dementia, unspecified severity, without behavioral disturbance, psychotic disturbance, mood disturbance, and anxiety; Z20.828 Contact with and (suspected) exposure to other viral communicable diseases; R09.02 Hypoxemia; R41.82 Altered mental status, unspecified; G30.1 Alzheimer's disease with late onset; F02.80 Dementia in other diseases classified elsewhere, unspecified severity, without behavioral disturbance, psychotic disturbance, mood disturbance, and anxiety; Z91.81 History of falling; Z88.0 Allergy status to penicillin; Z86.73 Personal history of transient ischemic attack (TIA), and cerebral infarction without residual deficits; Z87.440 Personal history of urinary (tract) infections; Z68.25 Body mass index [BMI] 25.0-25.9, adult